=== PATIENT | male | born 1955 | race Caucasian/White ===

== ENCOUNTER 2016-10-22 21:41 | Emergency (ER) | payer MEDICARE ==
[2016-10-22] MEDS ORDERED: HYDROmorphone 1 MG/ML 1 ML SYRINGE IVP STA (22:45)
[2016-10-22] MEDS ORDERED: ONDANSETRON 4 MG/2 ML VIAL IVP STA (22:45)
[2016-10-22] MEDS ORDERED: RX INFO: IV CONTRAST WAS GIVEN 1 EACH MISC MISCELLANE PRN (22:45)
--- NOTE | 2016-10-22 22:50 | ED ---
Abdominal Pain HPI - General Chief Complaint: Abdominal Pain Stated Complaint: hernia Time Seen by Provider: 10/22/16 22:17 Source: patient Mode of arrival: ambulatory Limitations: no limitations - History of Present Illness Initial Comments: This patient is a 61-year-old man who presents to be evaluated for abdominal pain. Patient states that this is been coming on since he had lifted a sliding door to take off of the tract. He states that he feels that he hurt his abdomen where he has a hernia at the umbilicus. He complains of moderate to severe aching pain that is constant. He also has been having a number of episodes of dry heaves and he has vomited twice. He has felt that he has had a have a bowel movement and he has tried to go 4 times but not having much success. MD Complaint: abdominal pain -: hour(s) Location: periumbilical Radiation: none Migration to: no migration Severity: severe Quality: aching Consistency: constant Improves With: nothing Worsens With: nothing Associated Symptoms: nausea, vomiting, constipation - Related Data Previous Rx's Medication Instructions Recorded Hydrocodone/Acetaminophen [[place] 1 each PO Q6HR PRN #20 tab 10/23/16 5-325] Ondansetron Odt [Zofran ODT] 4 mg PO Q8HR PRN #10 tab 10/23/16 Tamsulosin [Flomax] 0.4 mg PO DAILY #14 cap 10/23/16 Allergies Allergy/AdvReac Type Severity Reaction Status Date / Time nickel Allergy Unknown Verified 10/22/16 22:15 Review of Systems ROS Statement: Those systems with pertinent positive or pertinent negative responses have been documented in the HPI. ROS Other: All systems not noted in ROS Statement are negative. Constitutional: Denies: fever, chills Respiratory: Denies: cough, dyspnea Cardiovascular: Denies: chest pain, palpitations Gastrointestinal: Reports: as per HPI, abdominal pain, nausea, vomiting, constipation. Denies: diarrhea, melena, hematochezia Genitourinary: Denies: dysuria, hematuria Musculoskeletal: Denies: back pain Skin: Denies: rash Neurological: Denies: headache, weakness, numbness Past Medical History Past Medical History: Diabetes Mellitus Additional Past Medical History / Comment(s): CHF, glaucoma History of Any Multi-Drug Resistant Organisms: None Reported Past Surgical History: No Surgical Hx Reported Smoking Status: Current every day smoker Past Alcohol Use History: None Reported Past Drug Use History: Marijuana General Exam Limitations: no limitations General appearance: alert, in distress (Due to abdominal pain), obese Head exam: Present: atraumatic, normocephalic Eye exam: Present: normal appearance. Absent: scleral icterus, conjunctival injection ENT exam: Present: mucous membranes dry Neck exam: Present: normal inspection Respiratory exam: Present: normal lung sounds bilaterally. Absent: respiratory distress, wheezes, rales, rhonchi, stridor Cardiovascular Exam: Present: regular rate, normal rhythm, normal heart sounds. Absent: systolic murmur, diastolic murmur, rubs, gallop GI/Abdominal exam: Present: soft, tenderness, hernia (Patient has an umbilical hernia which did have some mild tenderness. I was able to reduce this with mild pressure.). Absent: distended, guarding, rebound, rigid, organomegaly, mass Extremities exam: Present: normal inspection, normal capillary refill. Absent: pedal edema, calf tenderness Back exam: Present: normal inspection. Absent: CVA tenderness (R), CVA tenderness (L) Neurological exam: Present: alert Skin exam: Present: warm, dry, intact, normal color. Absent: rash Course Vital Signs 10/22/16 10/23/16 10/23/16 22:12 00:59 01:52 Temperature 97.9 F 99.0 F 98.9 F Pulse Rate 77 83 79 Respiratory 18 16 18 Rate Blood Pressure 189/86 160/74 159/75 O2 Sat by Pulse 99 96 97 Oximetry 10/23/16 03:25 Temperature 98.4 F Pulse Rate 83 Respiratory 16 Rate Blood Pressure 176/83 O2 Sat by Pulse 95 Oximetry Medical Decision Making - Lab Data Result diagrams: 10/22/16 23:00 10/22/16 23:00 Lab Results 10/22/16 10/22/16 10/22/16 Range/Units 23:00 23:00 23:00 WBC 12.5 H (3.8-10.6) k/uL RBC 5.05 (4.30-5.90) m/uL Hgb 16.9 (13.0-17.5) gm/dL Hct 47.4 (39.0-53.0) % MCV 93.9 (80.0-100.0) fL MCH 33.5 (25.0-35.0) pg MCHC 35.6 (31.0-37.0) g/dL RDW 13.4 (11.5-15.5) % Plt Count 192 (150-450) k/uL Neutrophils % 86 % Lymphocytes % 8 % Monocytes % 4 % Eosinophils % 1 % Basophils % 1 % Neutrophils # 10.7 H (1.3-7.7) k/uL Lymphocytes # 1.0 (1.0-4.8) k/uL Monocytes # 0.6 (0-1.0) k/uL Eosinophils # 0.1 (0-0.7) k/uL Basophils # 0.1 (0-0.2) k/uL Sodium 142 (137-145) mmol/L Potassium 4.9 (3.5-5.1) mmol/L Chloride 104 (98-107) mmol/L Carbon Dioxide 22 (22-30) mmol/L Anion Gap 16 mmol/L BUN 19 (9-20) mg/dL Creatinine 1.10 (0.66-1.25) mg/dL Est GFR (MDRD) Af Amer >60 (>60 ml/min/1.73 sqM) Est GFR (MDRD) Non-Af >60 (>60 ml/min/1.73 sqM) Glucose 222 H (74-99) mg/dL Plasma Lactic Acid [place] 2.6 H* (0.7-2.0) mmol/L Calcium 10.0 (8.4-10.2) mg/dL Total Bilirubin 1.0 (0.2-1.3) mg/dL AST 18 (17-59) U/L ALT 33 (21-72) U/L Alkaline Phosphatase 69 (38-126) U/L Total Protein 7.0 (6.3-8.2) g/dL Albumin 4.7 (3.5-5.0) g/dL Amylase 53 (30-110) U/L Lipase 326 H (23-300) U/L Urine Color Urine Appearance (Clear) Urine pH (5.0-8.0) Ur Specific [place] (1.001-1.035) Urine Protein (Negative) Urine Glucose (UA) (Negative) Urine Ketones (Negative) Urine Blood (Negative) Urine Nitrite (Negative) Urine Bilirubin (Negative) Urine Urobilinogen (<2.0) mg/dL Ur Leukocyte Esterase (Negative) Urine RBC (0-5) /hpf Urine WBC (0-5) /hpf Acetone, Qual (Negative) 10/22/16 10/22/16 10/23/16 Range/Units 23:00 23:00 02:39 WBC (3.8-10.6) k/uL RBC (4.30-5.90) m/uL Hgb (13.0-17.5) gm/dL Hct (39.0-53.0) % MCV (80.0-100.0) fL MCH (25.0-35.0) pg MCHC (31.0-37.0) g/dL RDW (11.5-15.5) % Plt Count (150-450) k/uL Neutrophils % % Lymphocytes % % Monocytes % % Eosinophils % % Basophils % % Neutrophils # (1.3-7.7) k/uL Lymphocytes # (1.0-4.8) k/uL Monocytes # (0-1.0) k/uL Eosinophils # (0-0.7) k/uL Basophils # (0-0.2) k/uL Sodium (137-145) mmol/L Potassium (3.5-5.1) mmol/L Chloride (98-107) mmol/L Carbon Dioxide (22-30) mmol/L Anion Gap mmol/L BUN (9-20) mg/dL Creatinine (0.66-1.25) mg/dL Est GFR (MDRD) Af Amer (>60 ml/min/1.73 sqM) Est GFR (MDRD) Non-Af (>60 ml/min/1.73 sqM) Glucose (74-99) mg/dL Plasma Lactic Acid [place] 2.1 H (0.7-2.0) mmol/L Calcium (8.4-10.2) mg/dL Total Bilirubin (0.2-1.3) mg/dL AST (17-59) U/L ALT (21-72) U/L Alkaline Phosphatase (38-126) U/L Total Protein (6.3-8.2) g/dL Albumin (3.5-5.0) g/dL Amylase (30-110) U/L Lipase (23-300) U/L Urine Color Yellow Urine Appearance Clear (Clear) Urine pH 6.0 (5.0-8.0) Ur Specific [place] 1.019 (1.001-1.035) Urine Protein 2+ H (Negative) Urine Glucose (UA) 1+ H (Negative) Urine Ketones 2+ H (Negative) Urine Blood Small H (Negative) Urine Nitrite Negative (Negative) Urine Bilirubin Negative (Negative) Urine Urobilinogen <2.0 (<2.0) mg/dL Ur Leukocyte Esterase Negative (Negative) Urine RBC 31 H (0-5) /hpf Urine WBC 1 (0-5) /hpf Acetone, Qual Positive (Negative) Disposition Clinical Impression: Calculus of kidney, Abdominal pain Disposition: HOME SELF-CARE Condition: Good Instructions: Abdominal Pain (ED), Kidney Stones (ED) Prescriptions: Hydrocodone/Acetaminophen [[place] 5-325] 1 each PO Q6HR PRN #20 tab PRN Reason: Pain Ondansetron Odt [Zofran ODT] 4 mg PO Q8HR PRN #10 tab PRN Reason: Nausea Tamsulosin [Flomax] 0.4 mg PO DAILY #14 cap Referrals: Gregor Lynch MD [Primary Care Provider] - 1-2 days
[2016-10-22 23:47] LABS: Basophils # (A) 0.1 k/uL (0-0.2); Basophils % (A) 1 %; CH 33.6; Eosinophils # (A) 0.1 k/uL (0-0.7); Eosinophils % (A) 1 %; HCT 47.4 % (39.0-53.0); HGB 16.9 gm/dL (13.0-17.5); Luc # (Auto) 0.14; Luc % (Auto) 1; Lymphocytes % (A) 8 %; MCH 33.5 pg (25.0-35.0); MCHC 35.6 g/dL (31.0-37.0); MCV 93.9 fL (80.0-100.0); Mean Platelet Volume 7.4; Monocytes # (A) 0.6 k/uL (0-1.0); Monocytes % (A) 4 %; Neutrophils # (A) 10.7 k/uL (1.3-7.7); Neutrophils % (A) 86 %; RBC 5.05 m/uL (4.30-5.90); RDW 13.4 % (11.5-15.5); WBC 12.5 k/uL (3.8-10.6); WBC (Perox) 11.85
[2016-10-22 23:49] LABS: Appearance,Urine Clear (Clear); Bilirubin,Urine Negative (Negative); Glucose,Urine (UA) 1+ (Negative); Leukocyte Esterase,Urine Negative (Negative); Nitrite,Urine Negative (Negative); Particle Count 853; Protein,Urine 2+ (Negative); RBC,Urine 31 /hpf (0-5); Specific Gravity,Urine 1.019 (1.001-1.035); UA Billing (MACRO vs. MICRO) MICRO; Urobilinogen,Urine <2.0 mg/dL (<2.0); WBC,Urine 1 /hpf (0-5)
[2016-10-23 00:01] LABS: ALT 33 U/L (21-72); AST 18 U/L (17-59); Alkaline Phosphatase 69 U/L (38-126); Amylase 53 U/L (30-110); Anion Gap 16 mmol/L; Blood Urea Nitrogen 19 mg/dL (9-20); Carbon Dioxide 22 mmol/L (22-30); Chloride 104 mmol/L (98-107); Glucose 222 mg/dL (74-99); Non-African American GFR(MDRD) >60 (>60 ml/min/1.73 sqM); Potassium 4.9 mmol/L (3.5-5.1); Sodium 142 mmol/L (137-145)
[2016-10-23 00:07] LABS: Ketones,Urine 2+ (Negative)
[2016-10-23] MEDS ORDERED: ONDANSETRON 4 MG/2 ML VIAL IVP STA (00:55)
[2016-10-23] MEDS ORDERED: HYDROmorphone 1 MG/ML 1 ML SYRINGE IVP STA (00:55)
[2016-10-23] MEDS ORDERED: SODIUM CHLORIDE 0.9% 1,000 ML IV ONE ×2 (00:55→02:18)
--- NOTE | 2016-10-23 01:49 | CT ---
CT abdomen and pelvis with contrast INDICATION: abdominal pain TECHNIQUE: Multiple, contiguous axial cuts of the abdomen and pelvis are obtained from the lung bases to the ischial tuberosities following the administration of IV contrast. Sagittal and coronal reformatted images are available. Radiation Dose: CTDIvol: 19.4 mGy DLP: 1021.1 mGy-cm COMPARISON: None FINDINGS: The lung bases are clear. The liver appears mildly low attenuation, may be seen with hepatic steatosis. Liver measures 22 cm in craniocaudal dimension. There is a gallstone at the gallbladder neck without CT evidence for cholecystitis. No evidence for intrahepatic or extra hepatic biliary ductal dilatation. The spleen is unremarkable. There is subtle loss of the normal lobulations of the pancreatic tail. The adrenal gland are unremarkable. The right kidney is unremarkable. There is haziness with perinephric stranding around the left kidney. There is mild to moderate left hydronephrosis and hydro ureter within a 5 mm stone at the expected location of the left ureteral insertion on the bladder. There is mild heterogeneous attenuation of the left kidney. Low attenuation foci in the left kidney may represent renal cysts, however continued attention on followup is recommended. No contrast is identified within the left collecting system on the delayed views. Fat containing umbilical hernia. No evidence for an bowel obstruction. The appendix is unremarkable. Colonic diverticulosis, worse in the sigmoid colon. No CT evidence for diverticulitis. Extensive atherosclerotic calcifications of the abdominal aorta. Degenerative changes of the lumbar spine. Mild endplate compression deformity of the T12 vertebral body. Osseous mineralization appears decreased. IMPRESSION: 1. There is a 5 mm obstructive ureteral stone at the left ureteropelvic junction with associated mild to moderate hydroureteronephrosis. There is left perinephric stranding with heterogeneous attenuation of the left kidney which maybe due to obstructive nephropathy, however pyelonephritis is not entirely excluded. Please correlate with urinalysis. 2. Subtle loss of the normal lobulations of the pancreatic tail which may be due to anatomic variant, however continued attention on followup is recommended. Comparisons with prior examinations may be helpful. 3. Hepatomegaly with suggestion of hepatic steatosis. 4. Cholelithiasis without CT evidence for cholecystitis. 5. Diverticulosis without CT evidence for diverticulitis 6. Mild endplate compression deformity of the T12 vertebral body. Osseous mineralization appears decreased.
[2016-10-23] MEDS ORDERED: TAMSULOSIN 0.4 MG CAP.ER.24H PO STA (02:25)
[2016-10-23 03:28] VITALS: BP 176/83; PULSE 83; RESP 16; TEMP 98.4
== END 2016-10-23 03:52 | disposition home or self-care (01) ==
LOC: EC 21:41
DX: N20.0 Calculus of kidney (principal); F17.200 Nicotine dependence, unspecified, uncomplicated; Z91.048 Other nonmedicinal substance allergy status
CPT/HCPCS: 99284; 96374; 96375; 96376 ×2; 96361; 36415 ×2; 80053; 82150; 82009; 83605 ×2; 83690; 85025; 81001; 74177; J2405 ×2; J1170 ×2; Q9967

== ENCOUNTER 2017-10-04 17:35 | Inpatient (IN) | payer MEDICARE ==
[2017-10-04] MEDS ORDERED: SODIUM CHLORIDE 0.9% 1,000 ML IV STA (18:55)
--- NOTE | 2017-10-04 19:00 | ED ---
Recheck HPI - General Chief Complaint: Recheck/Abnormal Lab/Rx Stated Complaint: abn EKG Time Seen by Provider: 10/04/17 17:50 Source: patient, RN notes reviewed, old records reviewed Mode of arrival: ambulatory Limitations: no limitations - History of Present Illness Initial Comments: This patient's a 62-year-old male sent in by PCP for chief complaint of abnormal EKG. He has been having increased shortness of breath over the past few days. He reports that at his PCPs office he was given a breathing treatment and IM Solu-Medrol and Rocephin. Chest x-ray there showed bronchitis in any small pneumonia. Patient states that he quit smoking cigarettes 2 months ago, and stop smoking marijuana 2 days ago. He states that he was given refills of his inhaler. He was sent here for further evaluation due to the EKG and around his. At this time he denies any chest pain. He denies any fever or chills. No nausea or vomiting or abdominal pain. No diaphoresis. No significant cardiac history. He does have a family history of heart disease. He's never had a stress test. - Related Data Home Medications Medication Instructions Recorded Confirmed Atorvastatin [Lipitor] 20 mg PO HS 10/04/17 10/04/17 Cholecalciferol [Vitamin D3] 5,000 unit PO DAILY 10/04/17 10/04/17 Lisinopril [Zestril] 10 mg PO DAILY 10/04/17 10/04/17 Magnesium Oxide [Mag-Ox] 250 mg PO DAILY 10/04/17 10/04/17 Multivitamins, Thera [Multivitamin 1 tab PO DAILY 10/04/17 10/04/17 (formulary)] [place]-3 Fatty Acids/Fish Oil [Fish 1 cap PO DAILY 10/04/17 10/04/17 Oil 1,000 mg Softgel] amLODIPine BESYLATE [Norvasc] 10 mg PO DAILY 10/04/17 10/04/17 glipiZIDE [Glucotrol] 10 mg PO BID 10/04/17 10/04/17 metFORMIN HCL 1,000 mg PO BID 10/04/17 10/04/17 Allergies Allergy/AdvReac Type Severity Reaction Status Date / Time nickel Allergy Unknown Verified 10/04/17 19:08 Review of Systems ROS Statement: Those systems with pertinent positive or pertinent negative responses have been documented in the HPI. ROS Other: All systems not noted in ROS Statement are negative. Past Medical History Past Medical History: Diabetes Mellitus Additional Past Medical History / Comment(s): CHF, glaucoma History of Any Multi-Drug Resistant Organisms: None Reported Past Surgical History: No Surgical Hx Reported Past Psychological History: No Psychological Hx Reported Smoking Status: Current every day smoker Past Alcohol Use History: None Reported Past Drug Use History: Marijuana General Exam - General Exam Comments Initial Comments: Patient's a 62-year-old male. Alert and oriented. No significant distress.Paper Patient is hypertensive at 216/102. Pulse ox 98%. Respiratory rate 18. Pulse 84. Temp 98.3. Limitations: no limitations General appearance: alert, in no apparent distress Head exam: Present: atraumatic, normocephalic, normal inspection Eye exam: Present: normal appearance, PERRL, EOMI. Absent: scleral icterus, conjunctival injection, periorbital swelling ENT exam: Present: normal exam, mucous membranes moist Neck exam: Present: normal inspection. Absent: tenderness, meningismus, lymphadenopathy Respiratory exam: Present: normal lung sounds bilaterally. Absent: respiratory distress, wheezes, rales, rhonchi, stridor Cardiovascular Exam: Present: regular rate, normal rhythm, normal heart sounds. Absent: systolic murmur, diastolic murmur, rubs, gallop, clicks GI/Abdominal exam: Present: soft, normal bowel sounds. Absent: distended, tenderness, guarding, rebound, rigid Extremities exam: Present: normal inspection, full ROM, normal capillary refill. Absent: tenderness, pedal edema, joint swelling, calf tenderness Back exam: Present: normal inspection Neurological exam: Present: alert, oriented X3, CN II-XII intact Psychiatric exam: Present: normal affect, normal mood Course Vital Signs 10/04/17 10/04/17 10/04/17 17:38 19:05 19:26 Temperature 98.3 F Pulse Rate 84 79 69 Respiratory 18 16 15 Rate Blood Pressure 216/102 160/79 130/67 O2 Sat by Pulse 98 97 96 Oximetry 10/04/17 10/04/17 20:00 21:00 Temperature Pulse Rate 76 81 Respiratory 16 20 Rate Blood Pressure 142/69 163/78 O2 Sat by Pulse 95 97 Oximetry Medical Decision Making - Medical Decision Making 5-year-old male presents emergency Department chief complaint shortness breath over the past 2 days. Does have an abnormal EKG from PCP and sent here for further evaluation. He does have some T-wave inversions in the inferior leads poor R-wave progression. Patient has a family history of heart disease. He has multiple risk factors including diabetes and smoking. At this time. Patient denies any significant chest pain. Troponin is negative. Ruddy I discussed that I elected with the Patient for cardiac consult repeating the EKGs and troponins. Patient does agree with this. We'll consult to cardiology. Again he was recently diagnosed with bronchitis by PCP. Started on Solu-Medrol already today and given IV Rocephin. We'll continue some breathing treatments for the Patient. - Lab Data Result diagrams: 10/04/17 19:07 10/04/17 19:07 Lab Results 10/04/17 10/04/17 10/04/17 Range/Units 19:07 19:07 19:07 WBC 6.4 (3.8-10.6) k/uL RBC 4.82 (4.30-5.90) m/uL Hgb 15.6 (13.0-17.5) gm/dL Hct 44.1 (39.0-53.0) % MCV 91.6 (80.0-100.0) fL MCH 32.4 (25.0-35.0) pg MCHC 35.4 (31.0-37.0) g/dL RDW 13.3 (11.5-15.5) % Plt Count 192 (150-450) k/uL Neutrophils % 66 % Lymphocytes % 23 % Monocytes % 7 % Eosinophils % 2 % Basophils % 1 % Neutrophils # 4.2 (1.3-7.7) k/uL Lymphocytes # 1.5 (1.0-4.8) k/uL Monocytes # 0.4 (0-1.0) k/uL Eosinophils # 0.1 (0-0.7) k/uL Basophils # 0.0 (0-0.2) k/uL PT (9.0-12.0) sec INR (<1.2) APTT (22.0-30.0) sec D-Dimer (<0.60) mg/L FEU Sodium 139 (137-145) mmol/L Potassium 4.4 (3.5-5.1) mmol/L Chloride 100 (98-107) mmol/L Carbon Dioxide 22 (22-30) mmol/L Anion Gap 17 mmol/L BUN 15 (9-20) mg/dL Creatinine 0.76 (0.66-1.25) mg/dL Est GFR (CKD-EPI)AfAm >90 (>60 ml/min/1.73 sqM) Est GFR (CKD-EPI)NonAf >90 (>60 ml/min/1.73 sqM) Glucose 181 H (74-99) mg/dL Calcium 9.6 (8.4-10.2) mg/dL Magnesium 1.7 (1.6-2.3) mg/dL Total Bilirubin 1.0 (0.2-1.3) mg/dL AST 38 (17-59) U/L ALT 40 (21-72) U/L Alkaline Phosphatase 44 (38-126) U/L Total Creatine Kinase 167 (55-170) U/L CK-MB (CK-2) 3.5 H* (0.0-2.4) ng/mL CK-MB (CK-2) Rel Index 2.1 Troponin I <0.012 (0.000-0.034) ng/mL NT-Pro-B Natriuret Pep pg/mL Total Protein 7.2 (6.3-8.2) g/dL Albumin 4.8 (3.5-5.0) g/dL 10/04/17 10/04/17 10/04/17 Range/Units 19:07 19:07 19:07 WBC (3.8-10.6) k/uL RBC (4.30-5.90) m/uL Hgb (13.0-17.5) gm/dL Hct (39.0-53.0) % MCV (80.0-100.0) fL MCH (25.0-35.0) pg MCHC (31.0-37.0) g/dL RDW (11.5-15.5) % Plt Count (150-450) k/uL Neutrophils % % Lymphocytes % % Monocytes % % Eosinophils % % Basophils % % Neutrophils # (1.3-7.7) k/uL Lymphocytes # (1.0-4.8) k/uL Monocytes # (0-1.0) k/uL Eosinophils # (0-0.7) k/uL Basophils # (0-0.2) k/uL PT 10.2 (9.0-12.0) sec INR 1.0 (<1.2) APTT 20.5 L (22.0-30.0) sec D-Dimer 0.39 (<0.60) mg/L FEU Sodium (137-145) mmol/L Potassium (3.5-5.1) mmol/L Chloride (98-107) mmol/L Carbon Dioxide (22-30) mmol/L Anion Gap mmol/L BUN (9-20) mg/dL Creatinine (0.66-1.25) mg/dL Est GFR (CKD-EPI)AfAm (>60 ml/min/1.73 sqM) Est GFR (CKD-EPI)NonAf (>60 ml/min/1.73 sqM) Glucose (74-99) mg/dL Calcium (8.4-10.2) mg/dL Magnesium (1.6-2.3) mg/dL Total Bilirubin (0.2-1.3) mg/dL AST (17-59) U/L ALT (21-72) U/L Alkaline Phosphatase (38-126) U/L Total Creatine Kinase (55-170) U/L CK-MB (CK-2) (0.0-2.4) ng/mL CK-MB (CK-2) Rel Index Troponin I (0.000-0.034) ng/mL NT-Pro-B Natriuret Pep 104 pg/mL Total Protein (6.3-8.2) g/dL Albumin (3.5-5.0) g/dL 10/04/17 19:01 EKG performed at 1837 shows sinus rhythm first degree AV block. Pulmonary disease pattern. Left anterior fascicular block. Septal infarct. Ventricular rate 70 beats minute period. Vitals 234. Care is duration 118. QTc is 380/ 420 once milliseconds. - Radiology Data Radiology results: report reviewed X-ray is normal. No changes. Disposition Clinical Impression: EKG abnormality, SOB (shortness of breath), Bronchitis Disposition: ADMITTED IP TO THIS [facility] Condition: Stable Is patient prescribed a controlled substance at d/c from ED?: No When asked, does pt state using other controlled substances?: No If prescribed controlled substance>3 days was MAPS reviewed?: No If opioid is for acute pain is fill amount 7 days or less?: No If Rx opioid, was Start Talking consent form obtained?: No Time of Disposition: 21:26
[2017-10-04] MEDS ORDERED: LABETALOL 5 MG/ML VIAL MDV IVP STA (19:01)
[2017-10-04 19:18] LABS: HCT 44.1 % (39.0-53.0); HGB 15.6 gm/dL (13.0-17.5); MCH 32.4 pg (25.0-35.0); MCHC 35.4 g/dL (31.0-37.0); MCV 91.6 fL (80.0-100.0); Mean Platelet Volume 7.3; Neutrophils % (A) 66 %; Platelet Count 192 k/uL (150-450); RBC 4.82 m/uL (4.30-5.90); RDW 13.3 % (11.5-15.5); WBC 6.4 k/uL (3.8-10.6)
[2017-10-04 19:19] LABS: Basophils % (A) 1 %; Eosinophils # (A) 0.1 k/uL (0-0.7); Eosinophils % (A) 2 %; Lymphocytes # (A) 1.5 k/uL (1.0-4.8); Lymphocytes % (A) 23 %; Monocytes # (A) 0.4 k/uL (0-1.0); Monocytes % (A) 7 %; Neutrophils # (A) 4.2 k/uL (1.3-7.7)
[2017-10-04 19:30] LABS: ALT 40 U/L (21-72); AST 38 U/L (17-59); Albumin 4.8 g/dL (3.5-5.0); Alkaline Phosphatase 44 U/L (38-126); Anion Gap 17 mmol/L; Blood Urea Nitrogen 15 mg/dL (9-20); Calcium 9.6 mg/dL (8.4-10.2); Carbon Dioxide 22 mmol/L (22-30); Chloride 100 mmol/L (98-107); Glucose 181 mg/dL (74-99); Magnesium 1.7 mg/dL (1.6-2.3); Potassium 4.4 mmol/L (3.5-5.1); Sodium 139 mmol/L (137-145); Total Protein 7.2 g/dL (6.3-8.2)
[2017-10-04 19:39] LABS: Creatine Kinase 167 U/L (55-170)
[2017-10-04 19:47] LABS: Partial Thromboplastin Time 20.5 sec (22.0-30.0); Prothrombin Time 10.2 sec (9.0-12.0)
--- NOTE | 2017-10-04 19:51 | XR ---
EXAMINATION TYPE: XR chest 2V DATE OF EXAM: 10/04/2017 COMPARISON: 12/20/2012 HISTORY: Abnormal cardiogram. Chest pain. TECHNIQUE: Frontal and lateral views of the chest are obtained. FINDINGS: Heart and mediastinum are normal. Lungs are clear. Diaphragm is normal. Bony thorax is int act. IMPRESSION: Normal chest. No change.
[2017-10-04 19:52] LABS: Troponin I <0.012 ng/mL (0.000-0.034)
[2017-10-04 19:56] LABS: Creatine Kinase MB 3.5 ng/mL (0.0-2.4)
[2017-10-04] MEDS ORDERED: NITROGLYCERIN SL TABS 0.4 MG TAB SUBLINGUAL PRN (21:26)
[2017-10-04 22:40] VITALS: BMI 33.1
[2017-10-05 01:00] LABS: Creatine Kinase 180 U/L (55-170)
[2017-10-05 01:13] LABS: Troponin I <0.012 ng/mL (0.000-0.034)
[2017-10-05 01:14] LABS: Creatine Kinase MB 3.8 ng/mL (0.0-2.4)
[2017-10-05 01:45] VITALS: TEMP 98.6
[2017-10-05 06:12] LABS: Glucose,Whole Blood 192 mg/dL (75-99)
[2017-10-05 07:57] LABS: Cholesterol 129 mg/dL (<200); HDL Cholesterol 26 mg/dL (40-60); Triglycerides 501 mg/dL (<150)
[2017-10-05 08:07] LABS: Creatine Kinase 179 U/L (55-170)
[2017-10-05 08:20] LABS: Troponin I <0.012 ng/mL (0.000-0.034)
[2017-10-05 08:22] LABS: Creatine Kinase MB 3.2 ng/mL (0.0-2.4)
[2017-10-05] MEDS: IPRATROPIUM-ALBUTEROL 3 ML NEB INHALATION SCH ×4 (08:40→19:56)
[2017-10-05] MEDS: glipiZIDE 10 MG TAB PO SCH ×2 (08:52→14:19)
[2017-10-05] MEDS: LISINOPRIL 10 MG TAB PO SCH ×2 (08:52→11:12)
[2017-10-05] MEDS: amLODIPine 10 MG TAB PO SCH ×2 (08:52→11:10)
[2017-10-05] MEDS: metFORMIN 500 MG TAB PO SCH ×2 (08:53→14:19)
[2017-10-05] MEDS ORDERED: ASPIRIN 325 MG TAB PO SCH (09:00)
[2017-10-05] MEDS ORDERED: NON-FORMULARY DRUG (Omega-3 Fatty Acids/Fish Oil [Fish Oil 1,000 Mg Softgel] 1 CAP) PO SCH (09:00)
--- NOTE | 2017-10-05 10:24 | P.CRDCN ---
History of Present Illness Consult date: 10/05/17 Requesting physician: Thomas Hameed Consult reason: shortness of breath Chief complaint: Shortness of breath History of present illness: This 62-year-old gentleman with known history of hypertension, hyperlipidemia, diabetes, 50 year smoking history, year marijuana use history, states that he quit smoking 2 days ago. Patient states that he quit smoking because quite suddenly it seemed as though he just could not breathe. Shortness of breath is been getting progressively worse over the past 2-3 days. Patient has been told in the past to have COPD. He also has a family history of premature coronary artery disease. According to the patient, he went to see his primary care doctor, was given a breathing treatment as well as some Solu- Medrol and Rocephin, outpatient chest x-ray revealed bronchitis and pneumonia. Chest x-ray performed on arrival here is normal. An EKG was performed in the office which was felt to be abnormal and for this reason patient was advised to come to the emergency room for further evaluation. EKG in the office showed a normal sinus rhythm with no acute changes. EKG on arrival here showed a normal sinus rhythm with first-degree AV block and left anterior fascicular block. No acute changes noted. Blood pressure on arrival to 16/102, heart rate in the 80s , 98% on room air. Temperature 98.3. White blood cell count 6.4, hemoglobin 15.6, platelet count 192. D-dimer is negative. Sodium 139, potassium 4.4, BUN 15, creatinine 0.7. Troponins negative 3. Cholesterol 129, LDL not calculated , triglycerides 501, and HDL 26. At the time of my examination this morning, patient is mildly short of breath, denies any chest discomfort. He states he has never had a prior cardiac workup with stress testing or cardiac catheterization. Past Medical History Past Medical History: Diabetes Mellitus Additional Past Medical History / Comment(s): CHF, glaucoma History of Any Multi-Drug Resistant Organisms: None Reported Past Surgical History: No Surgical Hx Reported Past Psychological History: No Psychological Hx Reported Smoking Status: Current every day smoker Past Alcohol Use History: None Reported Past Drug Use History: Marijuana Medications and Allergies Home Medications Medication Instructions Recorded Confirmed Type Atorvastatin [Lipitor] 20 mg PO HS 10/04/17 10/04/17 History Cholecalciferol [Vitamin D3] 5,000 unit PO DAILY 10/04/17 10/04/17 History Lisinopril [Zestril] 10 mg PO DAILY 10/04/17 10/04/17 History Magnesium Oxide [Mag-Ox] 250 mg PO DAILY 10/04/17 10/04/17 History Multivitamins, Thera [Multivitamin 1 tab PO DAILY 10/04/17 10/04/17 History (formulary)] [place]-3 Fatty Acids/Fish Oil [Fish 1 cap PO DAILY 10/04/17 10/04/17 History Oil 1,000 mg Softgel] amLODIPine BESYLATE [Norvasc] 10 mg PO DAILY 10/04/17 10/04/17 History glipiZIDE [Glucotrol] 10 mg PO BID 10/04/17 10/04/17 History metFORMIN HCL 1,000 mg PO BID 10/04/17 10/04/17 History Allergies Allergy/AdvReac Type Severity Reaction Status Date / Time nickel Allergy Unknown Verified 10/04/17 19:08 Physical Exam Vitals: Vital Signs Temp Pulse Pulse Resp BP BP Pulse Ox 10/05/17 08:51 76 10/05/17 08:44 76 95 10/05/17 08:00 70 18 126/88 100 10/05/17 04:00 98.6 F 92 16 136/76 95 10/05/17 00:00 98.6 F 83 16 149/84 95 10/04/17 21:00 81 20 163/78 97 10/04/17 20:00 76 16 142/69 95 10/04/17 19:26 69 15 130/67 96 10/04/17 19:05 79 16 160/79 97 10/04/17 17:38 98.3 F 84 18 216/102 98 Intake and Output 10/04/17 10/05/17 10/05/17 22:59 06:59 14:59 Other: # Voids 1 1 Weight 113.852 kg 113.5 kg PHYSICAL EXAMINATION: GENERAL: 62-year-old gentleman in no apparent distress at the time of my examination. HEENT: Head is atraumatic, normocephalic. Pupils equal, round. Sclera anicteric. Conjunctiva are clear. Mucous membranes of the mouth are moist. Neck is supple. There is no elevated jugular venous pressure.] bruit is heard. HEART EXAMINATION: Heart S1, S2 normal. No murmur or gallop heard. CHEST EXAMINATION: Lungs reveal decreased air exchange . No chest wall tenderness is noted on palpation or with deep breathing. ABDOMEN: Soft, obese, nontender. Bowel sounds are heard. No organomegaly noted. EXTREMITIES: 2+ peripheral pulses with no evidence of peripheral edema and no calf tenderness noted. NEUROLOGIC patient is awake, alert and oriented -3. . Results 10/04/17 19:07 10/04/17 19:07 Cardiac Enzymes 10/04/17 10/04/17 10/05/17 Range/Units 19:07 19:07 00:34 AST 38 (17-59) U/L CK-MB (CK-2) 3.5 H* 3.8 H* (0.0-2.4) ng/mL Troponin I <0.012 <0.012 (0.000-0.034) ng/mL 10/05/17 Range/Units 07:17 AST (17-59) U/L CK-MB (CK-2) 3.2 H* (0.0-2.4) ng/mL Troponin I <0.012 (0.000-0.034) ng/mL Coagulation 10/04/17 Range/Units 19:07 PT 10.2 (9.0-12.0) sec APTT 20.5 L (22.0-30.0) sec Lipids 10/05/17 Range/Units 07:17 Triglycerides 501 H (<150) mg/dL Cholesterol 129 (<200) mg/dL HDL Cholesterol 26 L (40-60) mg/dL CBC 10/04/17 Range/Units 19:07 WBC 6.4 (3.8-10.6) k/uL RBC 4.82 (4.30-5.90) m/uL Hgb 15.6 (13.0-17.5) gm/dL Hct 44.1 (39.0-53.0) % Plt Count 192 (150-450) k/uL Comprehensive Metabolic Panel 10/04/17 Range/Units 19:07 Sodium 139 (137-145) mmol/L Potassium 4.4 (3.5-5.1) mmol/L Chloride 100 (98-107) mmol/L Carbon Dioxide 22 (22-30) mmol/L BUN 15 (9-20) mg/dL Creatinine 0.76 (0.66-1.25) mg/dL Glucose 181 H (74-99) mg/dL Calcium 9.6 (8.4-10.2) mg/dL AST 38 (17-59) U/L ALT 40 (21-72) U/L Alkaline Phosphatase 44 (38-126) U/L Total Protein 7.2 (6.3-8.2) g/dL Albumin 4.8 (3.5-5.0) g/dL Current Medications Generic Name Dose Route Start Last Admin Trade Name Freq PRN Reason Stop Dose Admin Albuterol/Ipratropium 3 ml 10/05/17 08:00 10/05/17 08:40 Duoneb 0.5 Mg-3 Mg/3 Ml Soln INHALATION 3 ml RT-Q4H MARIMAR Administration Amlodipine Besylate 10 mg 10/05/17 09:00 10/05/17 08:52 Norvasc PO 10 mg DAILY MARIMAR Administration Aspirin 325 mg 10/05/17 09:00 10/05/17 08:52 Aspirin PO 325 mg DAILY MARIMAR Administration Atorvastatin Calcium 20 mg 10/05/17 21:00 Lipitor PO HS MARIMAR Cholecalciferol 5,000 unit 10/05/17 12:00 10/05/17 08:52 Vitamin D3 PO 5,000 unit DAILY@1200 MARIMAR Administration Glipizide 10 mg 10/05/17 09:00 Glucotrol PO BID [facility] Sodium Chloride 1,000 mls @ 100 mls/hr 10/05/17 04:15 Saline 0.9% IV .Q10H [facility] Lisinopril 10 mg 10/05/17 09:00 10/05/17 08:52 Zestril PO 10 mg DAILY [facility] Administration Magnesium Oxide 400 mg 10/05/17 12:00 10/05/17 08:52 Mag-Ox PO 400 mg DAILY@1200 MARIMAR Administration Metformin HCl 1,000 mg 10/05/17 09:00 Glucophage PO BID [facility] Multivitamins 1 each 10/05/17 12:00 10/05/17 08:52 Theragran PO 1 each DAILY@1200 [facility] Administration Nitroglycerin 0.4 mg 10/04/17 21:26 Nitrostat SUBLINGUAL Q5M PRN Chest Pain Intake and Output 10/04/17 10/05/17 10/05/17 22:59 06:59 14:59 Other: # Voids 1 1 Weight 113.852 kg 113.5 kg 10/04/17 19:07 10/04/17 19:07 EKG Interpretations (text) EKG shows normal sinus rhythm with first-degree AV block, nonspecific ST-T wave changes Assessment and Plan Plan: Assessment and plan #1 symptoms of fairly sudden onset of shortness of breath with progression of symptoms over the past 2-3 days. Chest x-ray did not show any acute cardiopulmonary changes. Apparently patient did have an outpatient chest x-ray which showed possible pneumonia. Patient was given a dose of antibiotics, breathing treatment, and steroids at his physician's office. No evidence of congestive heart failure. #2 accelerated hypertension #3 diabetes #4 hyperlipidemia #5 50year smoking history, patient states he quit 2 days ago #6 50 year marijuana use history #7Family history of premature coronary artery disease Plan We will obtain an echocardiogram with Doppler study. EKG here shows normal sinus rhythm with no acute changes. Optimize blood pressure control. Amber scan stress test today. Further recommendations to follow. DNP note has been reviewed, I agree with a documented findings and plan of care. Patient was seen and examined.
[2017-10-05] MEDS ORDERED: AMINOPHYLLINE 500 MG/20 ML VIAL IV PRN (10:58)
[2017-10-05] MEDS ORDERED: REGADENOSON 0.4 MG/5 ML SYRINGE IV ONE (10:58)
[2017-10-05 11:42] LABS: Glucose,Whole Blood 239 mg/dL (75-99)
--- NOTE | 2017-10-05 11:59 | ECHOF ---
Referral Reason:chest pain MEASUREMENTS -------- HEIGHT: 185.4 cm WEIGHT: 113.4 kg BP: 126/88 RVIDd: 3.5 cm (< 3.3) IVSd: 1.2 cm (0.6 - 1.1) LVIDd: 4.7 cm (3.9 - 5.3) LVPWd: 1.2 cm (0.6 - 1.1) IVSs: 1.6 cm LVIDs: 3.3 cm LVPWs: 1.5 cm LAESV Index (A-L): 19.68 ml/m Ao Diam: 4.2 cm (2.0 - 3.7) AV Cusp: 2.4 cm (1.5 - 2.6) LA Diam: 2.8 cm (2.7 - 3.8) MV E Wesly: 1.00 m/s MV DecT: 315 ms MV A Wesly: 0.96 m/s MV E/A Ratio: 1.04 FINDINGS -------- Sinus rhythm. This was a technically adequate study. The left ventricular size is normal. There is mild concentric left ventricular hypertrophy. Overa ll left ventricular systolic function is normal with, an EF between 55 - 60 %. The right ventricle is mildly enlarged. Normal LA size by volume 22+/-6 ml/m2. The right atrium is normal in size. Aortic valve is trileaflet and is mildly thickened. There is no evidence of aortic regurgitation. There is no evidence of aortic stenosis. The mitral valve leaflets are mildly thickened. There is trace to mild mitral regurgitation. Trace tricuspid regurgitation present. Right ventricular systolic pressure is normal at < 35 mmHg. There is no evidence of pulmonary hypertension. The pulmonic valve was not well visualized. The aortic root size is normal. IVC Not well visulized. There is no pericardial effusion. CONCLUSIONS -------- 1. Sinus rhythm. 2. This was a technically adequate study. 3. The left ventricular size is normal. 4. There is mild concentric left ventricular hypertrophy. 5. Overall left ventricular systolic function is normal with, an EF between 55 - 60 %. 6. The right ventricle is mildly enlarged. 7. Normal LA size by volume 22+/-6 ml/m2. 8. Aortic valve is trileaflet and is mildly thickened. 9. The mitral valve leaflets are mildly thickened. 10. There is trace to mild mitral regurgitation. 11. Trace tricuspid regurgitation present. 12. Right ventricular systolic pressure is normal at < 35 mmHg. 13. There is no evidence of pulmonary hypertension. 14. The pulmonic valve was not well visualized. 15. The aortic root size is normal. 16. IVC Not well visulized. 17. There is no pericardial effusion. [employer] ARC: Jeramy Ramirez RDCS
[2017-10-05] MEDS ORDERED: MAGNESIUM OXIDE 400 MG TAB PO SCH (12:00)
[2017-10-05] MEDS ORDERED: CHOLECALCIFEROL 1,000 UNIT TAB PO SCH (12:00)
[2017-10-05] MEDS ORDERED: MULTIVITAMINS, THERA 1 EACH TAB PO SCH (12:00)
--- NOTE | 2017-10-05 13:45 | P.STRESS ---
- Stress Test Note Stress Test Results/Findings: Exam Performed: NM stress lexiscan cardiolite Exam Date: 10/05/17 Reason for Exam: ABN EKG Height: 6 ft 1 in Weight: 113.5 kg Protocol: jaguar scan Stage: na Duration of Exercise: na Resting Heart Rate: 66 Resting Blood Pressure: 136/74 Maximum Achieved Heart Rate: 87 Maximum Achieved Blood Pressure: 148/63 85% PMHR: na 100% PMHR: na METS: na Technologist Comment: Stress Test Results/Findings: This is a 62-year-old male with history of hypertension, diabetes and family history of ischemic heart disease and smoking history, being evaluated for cardiac status. Stress data Baseline EKG showed sinus rhythm with normal CT and QRS duration. Blood pressure at rest is 136/70. Pulse rate of 66. A standard dose of Lexiscan was infused. EKGs taken during and after infusion did not reveal any significant change from the baseline. Final impression #1 negative Lexiscan stress test #2. Report of an echo images to begin by the radiologist.
[2017-10-05] MEDS: SODIUM CHLORIDE 0.9% 1,000 ML IV SCH (14:20)
--- NOTE | 2017-10-05 15:22 | NM ---
EXAMINATION TYPE: NM stress lexiscan cardiolite DATE OF EXAM: 10/05/2017 COMPARISON: NONE HISTORY: Chest pain TECHNIQUE: After the intravenous administration of 10.56 mCi Tc 99m Sestamibi - Cardiolite resting S PECT images acquired 45 minutes post injection. The patient received 0.4mg Lexiscan, 27 mCi Tc 99m Sestamibi - Stress images obtained 110 minutes pos t injection FINDINGS: Review of stress and rest SPECT images demonstrates decreased radio pharmaceutical uptake along the i nferior wall left ventricle towards the base of the heart at stress and rest images. There is some de creased uptake along the anterolateral wall on stress as compared to rest images adjacent to the area of decreased uptake. Gated analysis shows normal wall motion with an estimated left ventricular ejec tion fraction of 54 %. IMPRESSION: Findings suggest possible prior infarct as well as justine-infarct pharmacologically induced left ventri cular myocardial ischemia
[2017-10-05] MEDS ORDERED: MAGNESIUM HYDROXIDE 2,400 MG/10 ML CUP PO PRN (16:48)
[2017-10-05] MEDS ORDERED: MELATONIN 3 MG TABLET PO PRN (16:48)
[2017-10-05] MEDS ORDERED: ACETAMINOPHEN TAB 325 MG TAB PO PRN (16:48)
[2017-10-05] MEDS ORDERED: ALPRAZolam 0.25 MG TAB PO PRN (16:48)
[2017-10-05] MEDS ORDERED: LACTULOSE 20 GM/30 ML CUP PO PRN (16:48)
[2017-10-05] MEDS ORDERED: CALCIUM CARBONATE 500 MG CHEWABLE PO PRN (16:48)
[2017-10-05] MEDS ORDERED: ONDANSETRON 4 MG/2 ML VIAL IVP PRN (16:48)
[2017-10-05 16:52] LABS: Glucose,Whole Blood 256 mg/dL (75-99)
[2017-10-05 17:05] VITALS: BP 130/78; PULSE 84; RESP 17
[2017-10-05] MEDS ORDERED: INSULIN ASPART 100 UNIT/ML 1 ML 10 ML VIAL SQ SCH (17:30)
--- NOTE | 2017-10-05 18:19 | HP ---
HISTORY AND PHYSICAL DATE OF ADMISSION: 10/04/2017 DATE OF SERVICE: 10/05/2017. PRESENTING COMPLAINT: Some shortness of breath. HISTORY OF PRESENTING COMPLAINT: This is a pleasant 62-year-old patient of Dr. Lynch. Chronic stable medical conditions include diabetes, hypertension, hyperlipidemia, peripheral neuropathy. Patient does get occasional edema of the lower extremities. Patient has had some shortness of breath and has smoked until about 2 months ago. Also he has been doing some marijuana. Patient presented with his friend. Patient went to see Dr. Lynch in his office. EKG was found to have some abnormality. He was sent in for the same. Patient has denied any chest pain, though he does get short of breath with some exertion. Currently no orthopnea or PND and, like stated, sometimes gets edema of the lower extremity. Denies any obvious chest pressure. Patient does complain of a charley horse in the lower extremity and has peripheral neuropathy. REVIEW OF SYSTEMS: CONSTITUTIONAL: Tired. HEENT: None. RESPIRATORY: As above. CARDIOVASCULAR: As above. GASTROINTESTINAL: None. GENITOURINARY: Patient's urine stream has started to slow down. DERMATOLOGICAL: None. HEMATOLOGICAL: None. LYMPHATICS: None. PSYCHIATRY: None. NEUROLOGICAL: Numbness and tingling in the feet. MUSCULOSKELETAL: Arthritic pain is several joints. PAST MEDICAL HISTORY: 1. Diabetes. 2. Hypertension. 3. Hyperlipidemia. 4. Peripheral neuropathy. 5. Osteoarthritis. PAST SURGICAL HISTORY: None. SOCIAL HISTORY: Patient smoked a pack and a half a day for close to 50 years; stopped about 2 months ago. Does some marijuana. 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 FAMILY HISTORY: Reviewed; noncontributory to presentation. HOME MEDICATIONS: 1. Norvasc 10 mg p.o. daily. 2. Zestril 10 mg p.o. daily. 3. Lipitor 20 mg at bedtime. 4. Multivitamin 1 tablet p.o. daily. 5. Magnesium oxide 250 mg p.o. daily. 6. Metformin 1000 mg p.o. b.i.d. 7. Glucotrol 10 mg p.o. daily. 8. Fish oil 1 capsule p.o. daily. 9. Vitamin D3 5000 units p.o. daily. ALLERGIES: NICKEL. PHYSICAL EXAMINATION: VITAL SIGNS: Temperature 98.6, pulse 92, respiration 16, blood pressure 136/76, pulse ox 95% on room air. GENERAL APPEARANCE: Well built; BMI 33. Sitting up at the edge of bed, comfortable. EYES: Pupils equal. Conjunctivae normal. HEENT: External appearance of nose and ears normal. Oral cavity normal. NECK: JVD not raised. Mass not palpable. RESPIRATORY: Effort normal. LUNGS: Slightly decreased breath sounds. CARDIOVASCULAR: First and second sounds normal. No edema. ABDOMEN: Soft, non-tender. Liver and spleen not palpable. LYMPHATIC: No lymph node palpable in neck or axillae. PSYCHIATRY: Alert and oriented x3. Mood and affect normal. NEUROLOGICAL: Pupils equal. Cranial nerves grossly intact. Some sensation decreased distally. EXTREMITIES: Patient has no palpable dorsalis pedis. INVESTIGATIONS: White count 6.4, hemoglobin 15.6. D-dimer 0.39, potassium 4.4. BUN and creatinine are normal. Troponin less than 0.012 x3. LDL was not calculated. Triglycerides 501. HDL was low at 26. EKG normal sinus rhythm. Two-D echo shows preserved LV function, no wall motion abnormality. ASSESSMENT: 1. This patient presented with nonspecific cardiac symptoms with some EKG findings. Patient has multiple cardiac risk factors, including diabetes, hypertension, hyperlipidemia, smoker. He will need a stress test. 2. Diabetes mellitus, type 2, on oral hypoglycemic. 3. Essential hypertension. 4. Hyperlipidemia. 5. Primary osteoarthritis in multiple joints. 6. Peripheral neuropathy secondary to diabetes. 7. Suspect peripheral artery disease in a smoker and absent dorsalis pedis. 8. Obesity, body mass index 33.0. PLAN: Patient is on aspirin. Home medications are resumed. Accu-Cheks will be followed. Patient will be put on breathing treatment. Per Cardiology, patient will be undergoing a stress test. Will have the patient see a dietitian. Care was discussed with the patient. MMODL / IJN: [id number] /
[2017-10-05] MEDS ORDERED: ATORVASTATIN 20 MG TAB PO SCH (21:00)
--- NOTE | 2017-10-10 07:20 | CDI ---
Last Revision, March 2017 Documentation Clarification Form Date: 10/10/2017 From: Shefali Patel Phone: If you have a question about this query, please contact Emily Ga, Director Of Primary at [phone] between 8am and 5pm. Admit Date: 10/04/2017 9:40:00 PM Patient Name: Mendoza Teran Visit Number: [id number] Discharge Date: 10/05/2017 ATTENTION: The Clinical Documentation Specialists (CDI) and [facility] Coding Staff appreciate your assistance in clarifying documentation. Please respond to the clarification below the line at the bottom and electronically sign. The CDI & [facility] Coding staff will review the response and follow-up if needed. Please note: Queries are made part of the Legal Health Record. If you have any questions, please contact the author of this message via ITS. Dr. Thomas Hameed Patient had fairly sudden SOB and EKG changes per the H&P. Outpatient CXR showing COPD and pneumonia. CXR as inpatient is normal. No evidence of CHF. Accelerated hypertension Patient history/risk factors HTN, family hx premature CAD, DM PN, DM PVD, COPD , hx. tobacco BP in ER: 216/102, 160/79 and 130/67 Radiology findings: CXR normal Please clarify the condition, after study, that necessitated admission for this 1 day admission since it is not clearly identified. Thank you for your assistance MTDD
--- NOTE | 2017-10-10 10:40 | EST ---
Stress Test Results/Findings: Exam Performed: NM stress lexiscan cardiolite Exam Date: 10/05/17 Reason for Exam: ABN EKG Height: 6 ft 1 in Weight: 113.5 kg Protocol: jaguar scan Stage: na Duration of Exercise: na Resting Heart Rate: 66 Resting Blood Pressure: 136/74 Maximum Achieved Heart Rate: 87 Maximum Achieved Blood Pressure: 148/63 85% PMHR: na 100% PMHR: na METS: na Technologist Comment: Stress Test Results/Findings: This is a 62-year-old male with history of hypertension, diabetes and family history of ischemic heart disease and smoking history, being evaluated for cardiac status. Stress data Baseline EKG showed sinus rhythm with normal NV and QRS duration. Blood pressure at rest is 136/70. Pulse rate of 66. A standard dose of Lexiscan was infused. EKGs taken during and after infusion did not reveal any significant change from the baseline. Final impression #1 negative Lexiscan stress test #2. Report of an Nuclear images to begin by the radiologist. DAVID
== END 2017-10-05 18:28 | disposition left against medical advice (07) | DRG 192 ==
LOC: EC 17:35 → 6SEL 21:40
PROVIDERS: ADMIT Hospitalist; ATTEND Hospitalist
DX: J44.0 Chronic obstructive pulmonary disease with (acute) lower respiratory infection (principal); I11.0 Hypertensive heart disease with heart failure; R94.31 Abnormal electrocardiogram [ECG] [EKG]; R06.02 Shortness of breath; E11.42 Type 2 diabetes mellitus with diabetic polyneuropathy; E66.9 Obesity, unspecified; E78.5 Hyperlipidemia, unspecified; Z87.891 Personal history of nicotine dependence; H40.9 Unspecified glaucoma; I25.10 Atherosclerotic heart disease of native coronary artery without angina pectoris; I44.30 Unspecified atrioventricular block; I44.4 Left anterior fascicular block; M62.831 Muscle spasm of calf; I50.9 Heart failure, unspecified; M15.9 Polyosteoarthritis, unspecified; Z68.33 Body mass index [BMI] 33.0-33.9, adult; Z79.82 Long term (current) use of aspirin; Z79.84 Long term (current) use of oral hypoglycemic drugs; Z79.899 Other long term (current) drug therapy; Z82.49 Family history of ischemic heart disease and other diseases of the circulatory system; Z71.3 Dietary counseling and surveillance; E11.51 Type 2 diabetes mellitus with diabetic peripheral angiopathy without gangrene; F12.90 Cannabis use, unspecified, uncomplicated
CPT/HCPCS: 36415; 71046; 78452; 80053; 80061; 82550; 82553; 83735; 83880; 84484; 85025; 85379; 85610; 85730; 93005; 93017; 93306; 94640; 94760; 99285

== ENCOUNTER 2019-03-12 08:26 | Day surgery (SDC) | payer MEDICARE ==
[2019-03-10 14:01] VITALS: BMI 31.6
[~2019-03-12 08:26] MED LIST: LACTATED RINGERS 1,000 ML IV SCH; LIDOCAINE 1% 20 ML VIAL (10MG/ML) FOR IV START INTRADERMA PRN
[2019-03-12 08:53] VITALS: TEMP 97.2
[2019-03-12 09:07] LABS: Glucose,Whole Blood 215 mg/dL (75-99)
[2019-03-12] MEDS ORDERED: LIDOCAINE 1% INJ 10MG/ML (20 ML MDV) ONE (09:32)
[2019-03-12] MEDS ORDERED: PROPOFOL 10 MG/ML 20 ML VIAL IV ONE (09:32)
--- NOTE | 2019-03-12 09:56 | P.PCN ---
Date of Procedure: 03/12/19 Procedure(s) Performed: BRIEF HISTORY: Patient is a 64-year-old pleasant white female scheduled for an elective colonoscopy as a part of value should prior history of colon polyps. Last colonoscopy was 3 years ago. PROCEDURE PERFORMED: Colonoscopy. PREOPERATIVE DIAGNOSIS: History of colon polyps. IV sedation per Anesthesia. PROCEDURE: After informed consent was obtained, the patient, was brought into the endoscopy unit. IV sedation was administered by Anesthesia under continuous monitoring. Digital rectal examination was normal. Initially the Olympus CF-160 flexible video colonoscope was then inserted in the rectum, gradually advanced into the cecum without any difficulty. Careful examination was performed as the scope was gradually being withdrawn. Ileocecal valve and the appendiceal orifice were visualized and appeared normal. Prep was excellent. Mucosa of the cecum, ascending colon, transverse colon, descending colon, sigmoid colon, and rectum appeared normal. Scattered sigmoid diverticula cyst. Retroflexion was performed in the rectum and no lesions were seen. The patient tolerated the procedure well. IMPRESSION: Normal-appearing colon from rectum to cecum with no evidence of colorectal neoplasia Scattered sigmoid diverticulosis. RECOMMENDATIONS: Findings of this examination were discussed with the patient as well as his family. He was advised to have a repeat surveillance colonoscopy in 5 years from now because of the prior history of colon polyps..
[2019-03-12 10:00] VITALS: RESP 16
[2019-03-12 10:22] VITALS: BP 144/90; PULSE 68
[2019-03-12 10:22] LABS: Glucose,Whole Blood 212 mg/dL (75-99)
== END 2019-03-12 10:28 | disposition home or self-care (01) ==
LOC: ORWHC2ENDO 08:26
PROVIDERS: ATTEND Internal Medicine Gastroenterology
DX: Z12.11 Encounter for screening for malignant neoplasm of colon (principal); K57.30 Diverticulosis of large intestine without perforation or abscess without bleeding; I10 Essential (primary) hypertension; Z86.010 Personal history of colon polyps; Z79.84 Long term (current) use of oral hypoglycemic drugs; Z79.899 Other long term (current) drug therapy
CPT/HCPCS: J2001; J2704; G0105; 45378

== ENCOUNTER 2020-08-11 12:59 | Inpatient (IN) | payer MEDICARE ==
[2020-08-11] MEDS ORDERED: PIPERACILLIN-TAZOBACTAM 3.375 GM in SODIUM CHLORIDE 0.9% 100 ML IVPB STA (14:40)
[2020-08-11 14:50] LABS: Basophils # (A) 0.1 k/uL (0-0.2); Basophils % (A) 0 %; Eosinophils # (A) 0.1 k/uL (0-0.7); Eosinophils % (A) 1 %; HCT 43.3 % (39.0-53.0); HGB 14.8 gm/dL (13.0-17.5); Lymphocytes % (A) 8 %; MCH 32.3 pg (25.0-35.0); MCHC 34.1 g/dL (31.0-37.0); MCV 94.9 fL (80.0-100.0); Mean Platelet Volume 7.4; Monocytes # (A) 0.7 k/uL (0-1.0); Monocytes % (A) 5 %; Neutrophils # (A) 11.1 k/uL (1.3-7.7); Neutrophils % (A) 85 %; Platelet Count 325 k/uL (150-450); Poikilocytosis Slight; RBC 4.56 m/uL (4.30-5.90); RDW 12.8 % (11.5-15.5); WBC 13.1 k/uL (3.8-10.6)
[2020-08-11 14:55] LABS: ALT 13 U/L (4-49); AST 17 U/L (17-59); African American GFR (CKD) >90 (>60 ml/min/1.73 sqM); Albumin 3.7 g/dL (3.5-5.0); Alkaline Phosphatase 70 U/L (38-126); Anion Gap 16 mmol/L; Blood Urea Nitrogen 19 mg/dL (9-20); Calcium 9.3 mg/dL (8.4-10.2); Carbon Dioxide 22 mmol/L (22-30); Chloride 94 mmol/L (98-107); Glucose 226 mg/dL (74-99); Non-African American GFR(CKD) >90 (>60 ml/min/1.73 sqM); Potassium 4.3 mmol/L (3.5-5.1); Sodium 132 mmol/L (137-145); Total Bilirubin 0.8 mg/dL (0.2-1.3); Total Protein 6.4 g/dL (6.3-8.2)
--- NOTE | 2020-08-11 14:57 | XR ---
EXAMINATION TYPE: XR foot complete RT DATE OF EXAM: 08/11/2020 CLINICAL HISTORY: pain TECHNIQUE: Frontal, lateral and oblique images of the right foot are obtained. COMPARISON: None. FINDINGS: There is deformity of the head and neck region of the proximal phalanx of the great toe lat erally. This may reflect traumatic change however osteomyelitis is difficult to exclude. Correlate c linically. Remaining osseous structures appear unremarkable. IMPRESSION: As above
[2020-08-11 14:58] LABS: Partial Thromboplastin Time 23.6 sec (22.0-30.0); Prothrombin Time 10.8 sec (9.0-12.0)
--- NOTE | 2020-08-11 15:28 | ED ---
Wound/Laceration HPI - General Chief Complaint: Wound/Laceration Stated Complaint: diabetic wound infection Time Seen by Provider: 08/11/20 13:57 Source: patient, RN notes reviewed Mode of arrival: wheelchair Limitations: no limitations - History of Present Illness Initial Comments: This a 65-year-old male presents emergency Department chief complaint of right foot infection. Patient states that she was walking with sandals states he stepped on some [place] states that since it causes some puncturing to his foot. He started noticing some sores which have progressively worsening in which he's had low-grade temps, increasing pain. Patient was seen by PCP sent for admission. Patient has a known diabetic states she does not check his blood sugar, not well controlled. Patient denies any upper leg pain. He states redness is spreading to his mid villasenor region - Related Data Home Medications Medication Instructions Recorded Confirmed Atorvastatin [Lipitor] 20 mg PO HS 10/04/17 08/11/20 Cholecalciferol [Vitamin D3] 3,000 unit PO DAILY 10/04/17 08/11/20 Magnesium Oxide [Mag-Ox] 250 mg PO HS 10/04/17 08/11/20 Multivitamins, Thera [Multivitamin 1 tab PO DAILY 10/04/17 08/11/20 (formulary)] [place]-3 Fatty Acids/Fish Oil [Fish 1 cap PO DAILY 10/04/17 08/11/20 Oil 1,000 mg Softgel] amLODIPine BESYLATE [Norvasc] 10 mg PO DAILY 10/04/17 08/11/20 glipiZIDE [Glucotrol] 10 mg PO BID 10/04/17 08/11/20 metFORMIN HCL 1,000 mg PO BID 10/04/17 08/11/20 Aspirin 325 mg PO DAILY 03/10/19 08/11/20 Travoprost [Travatan Z 0.004%] 1 drop BOTH EYES HS 03/10/19 08/11/20 Amoxic-Pot Clav 875-125Mg 1 tab PO Q12HR 08/11/20 08/11/20 [Augmentin 875-125] Dapagliflozin Propanediol [Farxiga] 10 mg PO DAILY 08/11/20 08/11/20 Magnesium Oxide 400 mg PO BID 08/11/20 08/11/20 Repaglinide [Prandin] 2 mg PO TID 08/11/20 08/11/20 lisinopriL [Zestril] 20 mg PO DAILY 08/11/20 08/11/20 Allergies Allergy/AdvReac Type Severity Reaction Status Date / Time nickel Allergy Unknown Verified 08/11/20 14:26 Review of Systems ROS Statement: Those systems with pertinent positive or pertinent negative responses have been documented in the HPI. ROS Other: All systems not noted in ROS Statement are negative. Past Medical History Past Medical History: Heart Failure, Diabetes Mellitus, Hypertension Additional Past Medical History / Comment(s): glaucoma History of Any Multi-Drug Resistant Organisms: None Reported Past Surgical History: No Surgical Hx Reported Additional Past Surgical History / Comment(s): testicle surgery, thumb surgery, ankle surgery Past Anesthesia/Blood Transfusion Reactions: No Reported Reaction Past Psychological History: No Psychological Hx Reported Smoking Status: Current every day smoker Past Alcohol Use History: None Reported Past Drug Use History: Marijuana - Past Family History Father Family Medical History: CVA/TIA Additional Family Medical History / Comment(s): CABG x2 General Exam Limitations: no limitations General appearance: alert, in no apparent distress Head exam: Present: atraumatic, normocephalic, normal inspection Respiratory exam: Present: normal lung sounds bilaterally. Absent: respiratory distress, wheezes, rales, rhonchi, stridor Cardiovascular Exam: Present: normal rhythm, tachycardia, normal heart sounds. Absent: systolic murmur, diastolic murmur, rubs, gallop, clicks Extremities exam: Present: other (Right foot there are open wound, diabetic ulcer with erythema that spread to the lower distal one third of his leg, ten derness with palpation pulses are palpable there is purulent drainage noted) Course Vital Signs 08/11/20 13:01 Temperature 99.4 F Pulse Rate 106 H Respiratory 18 Rate Blood Pressure 123/68 O2 Sat by Pulse 97 Oximetry Medical Decision Making - Medical Decision Making Patient is found to have extensive diabetic foot ulcer, cellulitis requiring IV antibiotics, possible debridement. Patient will be admitted to medicine with consult to infectious disease. - Lab Data Result diagrams: 08/11/20 13:43 08/11/20 13:43 Lab Results 08/11/20 08/11/20 08/11/20 Range/Units 13:43 13:43 13:43 WBC 13.1 H (3.8-10.6) k/uL RBC 4.56 (4.30-5.90) m/uL Hgb 14.8 (13.0-17.5) gm/dL Hct 43.3 (39.0-53.0) % MCV 94.9 (80.0-100.0) fL MCH 32.3 (25.0-35.0) pg MCHC 34.1 (31.0-37.0) g/dL RDW 12.8 (11.5-15.5) % Plt Count 325 (150-450) k/uL MPV 7.4 Neutrophils % 85 % Lymphocytes % 8 % Monocytes % 5 % Eosinophils % 1 % Basophils % 0 % Neutrophils # 11.1 H (1.3-7.7) k/uL Lymphocytes # 1.0 (1.0-4.8) k/uL Monocytes # 0.7 (0-1.0) k/uL Eosinophils # 0.1 (0-0.7) k/uL Basophils # 0.1 (0-0.2) k/uL Poikilocytosis Slight PT 10.8 (9.0-12.0) sec INR 1.0 (<1.2) APTT 23.6 (22.0-30.0) sec Sodium (137-145) mmol/L Potassium (3.5-5.1) mmol/L Chloride (98-107) mmol/L Carbon Dioxide (22-30) mmol/L Anion Gap mmol/L BUN (9-20) mg/dL Creatinine (0.66-1.25) mg/dL Est GFR (CKD-EPI)AfAm (>60 ml/min/1.73 sqM) Est GFR (CKD-EPI)NonAf (>60 ml/min/1.73 sqM) Glucose (74-99) mg/dL Plasma Lactic Acid [place] 1.4 (0.7-2.0) mmol/L Calcium (8.4-10.2) mg/dL Total Bilirubin (0.2-1.3) mg/dL AST (17-59) U/L ALT (4-49) U/L Alkaline Phosphatase (38-126) U/L Total Protein (6.3-8.2) g/dL Albumin (3.5-5.0) g/dL 04/21/21 Range/Units 13:43 WBC (3.8-10.6) k/uL RBC (4.30-5.90) m/uL Hgb (13.0-17.5) gm/dL Hct (39.0-53.0) % MCV (80.0-100.0) fL MCH (25.0-35.0) pg MCHC (31.0-37.0) g/dL RDW (11.5-15.5) % Plt Count (150-450) k/uL MPV Neutrophils % % Lymphocytes % % Monocytes % % Eosinophils % % Basophils % % Neutrophils # (1.3-7.7) k/uL Lymphocytes # (1.0-4.8) k/uL Monocytes # (0-1.0) k/uL Eosinophils # (0-0.7) k/uL Basophils # (0-0.2) k/uL Poikilocytosis PT (9.0-12.0) sec INR (<1.2) APTT (22.0-30.0) sec Sodium 132 L (137-145) mmol/L Potassium 4.3 (3.5-5.1) mmol/L Chloride 94 L (98-107) mmol/L Carbon Dioxide 22 (22-30) mmol/L Anion Gap 16 mmol/L BUN 19 (9-20) mg/dL Creatinine 0.85 (0.66-1.25) mg/dL Est GFR (CKD-EPI)AfAm >90 (>60 ml/min/1.73 sqM) Est GFR (CKD-EPI)NonAf >90 (>60 ml/min/1.73 sqM) Glucose 226 H (74-99) mg/dL Plasma Lactic Acid [place] (0.7-2.0) mmol/L Calcium 9.3 (8.4-10.2) mg/dL Total Bilirubin 0.8 (0.2-1.3) mg/dL AST 17 (17-59) U/L ALT 13 (4-49) U/L Alkaline Phosphatase 70 (38-126) U/L Total Protein 6.4 (6.3-8.2) g/dL Albumin 3.7 (3.5-5.0) g/dL Disposition Clinical Impression: Diabetic ulcer of right foot, Cellulitis of right leg Disposition: ADMITTED IP TO THIS [facility] Condition: Fair Referrals: Gregor Lynch MD [Primary Care Provider] - 1-2 days
[2020-08-11] MEDS ORDERED: VANCOMYCIN IV PER PHARMACY 1 EACH MISC MISCELLANE PRN (15:29)
[2020-08-11] MEDS ORDERED: ACETAMINOPHEN TAB 325 MG TAB PO PRN (15:31)
[2020-08-11] MEDS ORDERED: NALOXONE 0.4 MG/ML 1 ML VIAL IV PRN (15:31)
[2020-08-11] MEDS ORDERED: ONDANSETRON 4 MG/2 ML VIAL IVP PRN (15:31)
[2020-08-11] MEDS ORDERED: VANCOMYCIN 2,000 MG in SODIUM CHLORIDE 0.9% 500 ML 500 ML IVPB STA (15:34)
[2020-08-11] MEDS: REPAGLINIDE 1 MG TAB PO SCH ×2 (16:31→23:25)
[2020-08-11 16:39] LABS: Glucose,Whole Blood 153 mg/dL (75-99)
[2020-08-11] MEDS ORDERED: glipiZIDE 10 MG TAB PO SCH (17:30)
--- NOTE | 2020-08-11 17:35 | P.HPIM ---
History of Present Illness H&P Date: 08/11/20 History of presenting illness: Patient is a 65-year-old male with a past medical history of type II [id number] diabetes mellitus, hypertension, hyperlipidemia, and daily cannabis use. He presented to the hospital as directed by his PCP for evaluation of a wound to his right foot. patient reports that on 07/31/20 he cut the bottom of his right foot on some [place] resulting in an open wound. Patient reports he did not realize how bad the injury was until [place] and felt the burning to the wound on his right foot. Patient states that over the past 3-4 days this wound became significantly larger and became accompanied by surrounding redness and drainage. Patient reports he began noticing the redness traveling up his foot yesterday and today noted the redness traveling up his leg since he went to the PCP who then sent him to the emergency department. Patient was seen and fully evaluated in the emergency department. X-ray right foot reported findings showing a deformity of the head and neck region of the proximal phalanx of the great toe laterally possibly reflecting traumatic change however osteomyelitis is difficult to exclude.leukocytosis with WBC count of 13.1 with a left shift and CRP elevated at 24.5. Patient started on IV antibiotics vancomycin and Zosyn. Pt was admitted under our services along with consults to infectious disease and podiatry for further evaluation. patient reports poorly controlled diabetes and denies monitoring daily blood glucose levels. He denies having any recent fever, chills, headache, lightheadedness, dizziness, chest pain or palpitations, shortness of breath, abdominal pain, nausea, vomiting, or experiencing any numbness/tingling/weakness in his extremities. Review of systems: Pertinent positives and negatives as discussed in HPI, a complete review of systems was performed and all other systems are negative. Physical exam: General: non toxic, no distress, appears at stated age Derm: warm, dry, diabetic ulcer right lateral distal region beneath fifth digit (Pinkie toe) of right foot extending upwards into the lateral surface Head: atraumatic, normocephalic, symmetric Eyes: EOMI, no lid lag, anicteric sclera Mouth: no lip lesion, mucus membranes moist Cardiovascular: S1S2 reg, no murmur, positive posterior tibial pulse bilateral, Lungs: CTA bilateral, no rhonchi, no rales , no accessory muscle use Abdominal: soft, nontender to palpation, no guarding, no appreciable organomegaly Ext: no gross muscle atrophy, no edema, no contractures Neuro: CN II-XI grossly intact, no focal neuro deficits Psych: Alert, oriented, appropriate affect Assessment and Plan of Care: Diabetic ulcer to right foot with surrounding cellulitis and concerns for possib le osteomyelitis -X-ray right foot reported findings showing a deformity of the head and neck region of the proximal phalanx of the great toe laterally possibly reflecting traumatic change however osteomyelitis is difficult to exclude. -WBC count of 13.1 with a left shift and CRP elevated at 24.5. -Order placed for MRI with IV contrast -IV antibiotics: Vancomycin and Zosyn -Wound culture. -Consult wound care. -Consult infectious disease, Clive Myers. -Consult podiatry, Dr. Tiwari. -Pain management and symptomatic treatment. Diabetes mellitus type 2 -Hold oral glycemic medications at this time place patient on glycemic protocol with sliding scale to maintain tight glycemic control throughout hospitalization. -Hemoglobin A1c to be drawn along with a.m. labs. -Heart healthy carb consistent diet. Hypertension -Monitor vital signs and continue daily medication management with lisinopril an d amlodipine. Hyperlipidemia -Continue daily medication regimen with atorvastatin 20 mg nightly. -Heart healthy carb consistent diet. The patient is admitted with an anticipated greater than 2 midnight stay for evaluation of diabetic ulcer to right foot with surrounding cellulitis and concerns for possible osteomyelitis. CODE STATUS: full code DVT prophylaxis: heparin Discussed with: patient and RN Anticipated discharge date: clinical course to determine Anticipated discharge place: home with possible homecare A total of 45 minutes was spent on the care of this complex patient more than 50% of the time was spent in counseling and care coordination. Past Medical History Past Medical History: Heart Failure, Diabetes Mellitus, Hypertension Additional Past Medical History / Comment(s): glaucoma History of Any Multi-Drug Resistant Organisms: None Reported Past Surgical History: No Surgical Hx Reported Additional Past Surgical History / Comment(s): testicle surgery, thumb surgery, ankle surgery Past Anesthesia/Blood Transfusion Reactions: No Reported Reaction Past Psychological History: No Psychological Hx Reported Smoking Status: Current every day smoker Past Alcohol Use History: None Reported Past Drug Use History: Marijuana - Past Family History Father Family Medical History: CVA/TIA Additional Family Medical History / Comment(s): CABG x2 Medications and Allergies Home Medications Medication Instructions Recorded Confirmed Type Atorvastatin [Lipitor] 20 mg PO HS 10/04/17 08/11/20 History Cholecalciferol [Vitamin D3] 3,000 unit PO DAILY 10/04/17 08/11/20 History Magnesium Oxide [Mag-Ox] 250 mg PO HS 10/04/17 08/11/20 History Multivitamins, Thera [Multivitamin 1 tab PO DAILY 10/04/17 08/11/20 History (formulary)] [place]-3 Fatty Acids/Fish Oil [Fish 1 cap PO DAILY 10/04/17 08/11/20 History Oil 1,000 mg Softgel] amLODIPine BESYLATE [Norvasc] 10 mg PO DAILY 10/04/17 08/11/20 History glipiZIDE [Glucotrol] 10 mg PO BID 10/04/17 08/11/20 History metFORMIN HCL 1,000 mg PO BID 10/04/17 08/11/20 History Aspirin 325 mg PO DAILY 03/10/19 08/11/20 History Travoprost [Travatan Z 0.004%] 1 drop BOTH EYES HS 03/10/19 08/11/20 History Amoxic-Pot Clav 875-125Mg 1 tab PO Q12HR 08/11/20 08/11/20 History [Augmentin 875-125] Dapagliflozin Propanediol [Farxiga] 10 mg PO DAILY 08/11/20 08/11/20 History Magnesium Oxide 400 mg PO BID 08/11/20 08/11/20 History Repaglinide [Prandin] 2 mg PO TID 08/11/20 08/11/20 History lisinopriL [Zestril] 20 mg PO DAILY 08/11/20 08/11/20 History Allergies Allergy/AdvReac Type Severity Reaction Status Date / Time nickel Allergy Unknown Verified 08/11/20 14:26 Physical Exam Vitals: Vital Signs Temp Pulse Resp BP Pulse Ox 08/11/20 13:01 99.4 F 106 H 18 123/68 97 Intake and Output 08/11/20 08/11/20 08/11/20 06:59 14:59 22:59 Other: Weight 108.862 kg Results CBC & Chem 7: 08/11/20 13:43 08/11/20 13:43 Labs: Abnormal Lab Results - Last 24 Hours (Table) 08/11/20 08/11/20 08/11/20 Range/Units 13:43 13:43 13:43 WBC 13.1 H (3.8-10.6) k/uL Neutrophils # 11.1 H (1.3-7.7) k/uL Sodium 132 L (137-145) mmol/L Chloride 94 L (98-107) mmol/L Glucose 226 H (74-99) mg/dL C-Reactive Protein 24.5 H (<1.0) mg/dL
[2020-08-11 17:56] LABS: Glucose,Whole Blood 107 mg/dL (75-99)
[2020-08-11] MEDS: INSULIN ASPART (NovoLOG) 100 UNIT/ML VIAL SQ SCH (18:52)
[2020-08-11] MEDS ORDERED: NON FORMULARY DRUG (Magnesium Oxide 250 MG Tab) PO SCH (21:00)
[2020-08-11] MEDS ORDERED: metFORMIN 500 MG TAB PO SCH (21:00)
--- NOTE | 2020-08-11 23:13 | MR ---
EXAMINATION TYPE: MR foot RT wo con DATE OF EXAM: 08/11/2020 COMPARISON: None HISTORY: X-RAY concerning for osteomyelitis, puncture wound. Multiplanar multiecho imaging of the right foot was performed without contrast. There is subcutaneous edema in the forefoot. This is seen in the dorsal and plantar aspect of the for efoot. The metatarsals have fairly normal signal pattern. There is slight deformity of the fourth met atarsal head suggestive of an old healed fracture. There is mixed signal in the head of the proximal phalanx of the big toe. This apparently relates to an old intra-articular chip fracture of the latera l aspect of the head of the proximal phalanx of the big toe. There is also some mild spurring at the IP joint of the big toe. There is on the T2 coronal images a slightly rounded area of increased signal in the plantar aspect o f the midfoot. This is seen at the base of the second metatarsal could be complex abscess. At the vianey ntar aspect of the midfoot there is also a more superficial complex irregular area within the subcuta neous tissues that is measuring 14 x 11 mm. IMPRESSION: Complex masses at the plantar aspect of the midfoot at the level of the base of the second metatarsal could be an abscess or hematoma. There is diffuse soft tissue swelling of the forefoot. No definite sign of osteomyelitis. Old fracture of the proximal phalanx of the big toe also evident on x-ray yesterday.
[2020-08-11] MEDS: LATANOPROST 0.005% OPHTH DROPS 2.5 ML BTL BOTH EYES SCH (23:24)
[2020-08-11] MEDS: ATORVASTATIN 20 MG TAB PO SCH (23:24)
[2020-08-11] MEDS: MAGNESIUM OXIDE 400 MG TAB PO SCH (23:25)
[2020-08-11] MEDS: PSYLLIUM HUSK 100% 6 GM PACKET PO SCH (23:26)
[2020-08-11] MEDS: HYDROmorphone 0.5 MG/0.5 ML SYRINGE IVP PRN (23:35)
[2020-08-12] MEDS ORDERED: PIPERACILLIN-TAZOBACTAM 3.375 GM in SODIUM CHLORIDE 0.9% 100 ML IVPB SCH ×2
[2020-08-12] MEDS: AMPICILLIN-SULBACTAM 3 GM in SODIUM CHLORIDE 0.9% 100 ML IVPB SCH ×4 (00:20→18:45)
[2020-08-12] MEDS: HEPARIN SODIUM,PORCINE/PF 5,000 UNIT/0.5 ML SYRINGE SQ SCH ×3 (01:26→17:19)
[2020-08-12] MEDS: HYDROmorphone 0.5 MG/0.5 ML SYRINGE IVP PRN ×5 (03:43→23:13)
[2020-08-12 05:29] LABS: HCT 41.3 % (39.0-53.0); HGB 13.6 gm/dL (13.0-17.5); MCV 97.1 fL (80.0-100.0); Mean Platelet Volume 7.1; Platelet Count 288 k/uL (150-450); Poikilocytosis Slight; RBC 4.25 m/uL (4.30-5.90); RDW 13.6 % (11.5-15.5); WBC 10.8 k/uL (3.8-10.6)
[2020-08-12 05:50] LABS: African American GFR (CKD) >90 (>60 ml/min/1.73 sqM); Anion Gap 17 mmol/L; Blood Urea Nitrogen 18 mg/dL (9-20); Calcium 8.9 mg/dL (8.4-10.2); Carbon Dioxide 16 mmol/L (22-30); Chloride 99 mmol/L (98-107); Glucose 159 mg/dL (74-99); Non-African American GFR(CKD) >90 (>60 ml/min/1.73 sqM); Potassium 4.2 mmol/L (3.5-5.1); Sodium 132 mmol/L (137-145)
[2020-08-12] MEDS: VANCOMYCIN 1,750 MG in SODIUM CHLORIDE 0.9% 500 ML 500 ML IVPB SCH ×2 (06:15→20:16)
[2020-08-12 07:05] LABS: Glucose,Whole Blood 169 mg/dL (75-99)
[2020-08-12] MEDS: INSULIN ASPART (NovoLOG) 100 UNIT/ML VIAL SQ SCH ×3 (08:05→18:43)
[2020-08-12] MEDS: PSYLLIUM HUSK 100% 6 GM PACKET PO SCH (08:20)
[2020-08-12] MEDS: MAGNESIUM OXIDE 400 MG TAB PO SCH ×3 (08:20→22:23)
--- NOTE | 2020-08-12 08:31 | CONS ---
CONSULTATION DATE OF SERVICE: 08/11/2020 REASON FOR CONSULTATION: Right diabetic foot infection. HISTORY OF PRESENT ILLNESS: The patient is a 65-year-old male with a past medical history significant for type 2 diabetes mellitus, hypertension, hyperlipidemia in this patient apparently cut the bottom of his right foot from about a week ago with resulting open wound. Patient did not realize the injury until the next day when he noticed some burning of the foot. He noticed , which he says he plucked out formation of the wound on the plantar aspect of the right foot at the base of the fifth toe. The patient on the next 3-4 days started having more swelling and redness of the right foot. The patient did have underlying neuropathy and denies significant pain except some pressure sensation. The patient did have mild drainage from it. The patient was evaluated by the primary care physician who advised the patient to go to the hospital. On arrival to the ER, the patient did have x-rays of the foot which did show some soft tissue swelling but no foreign body. The patient on arrival to the ER did have a low-grade fever of 99.4. He was tachycardia with a heart rate of 106. He did have elevated white count 13.1 with left shift. Creatinine has been normal. CRP was 24.5. [place] PCR was negative. The patient did have blood culture which is currently pending. The patient has been started on vancomycin and Zosyn. Infectious Disease was consulted for further management of antibiotic therapy. REVIEW OF SYSTEMS: Positive points have been mentioned in HPI. Rest of the systems are negative. PAST MEDICAL HISTORY: Diabetes mellitus, hypertension, heart failure. PAST SURGICAL HISTORY: Ankle surgery and thumb surgery. SOCIAL HISTORY: Current everyday smoker. Admitted to marijuana use. FAMILY HISTORY: Father with history of CVA, TIA. ALLERGIES: NICKEL. MEDICATIONS: Medications include the patient is currently on vancomycin, Pharmacy to dose, Zosyn, Tylenol, [place], Norvasc, Lipitor, Dilaudid, NovoLog, Zestril, Mag oxide, Narcan, Zofran, Metamucil, Prandin. PHYSICAL EXAMINATION: Blood pressure is 141/75, pulse of 64, temperature 98.9. He is 95% on room air. General description is an elderly male lying in bed in no distress. No tachypnea or accessory muscles of respiration use. HEENT: Examination shows no pallor or scleral icterus. Oral mucous membrane is dry. NECK: Trachea central. No thyromegaly. LUNGS: Unlabored breathing, clear to auscultation anteriorly. No wheeze or crackle. HEART: S1, S2. Regular rate and rhythm. ABDOMEN: Soft, no tenderness. No guarding or rigidity. EXTREMITIES: No edema of feet. Examination of the right foot: The patient did have swelling and redness with the wound at the base of the fifth toe with some purulent drainage which has been cultured. NEUROLOGICAL: Patient is awake, alert, oriented x3. Mood and affect normal. LABS: Hemoglobin is 14.8, white count 13.1, BUN of 19, creatinine 0.85. Electrolytes have been normal. Liver enzymes are normal. DIAGNOSTIC IMPRESSION: Patient with right diabetic foot infection with evidence of underlying abscess on the MRI, started with trauma about a week ago with progressive worsening symptoms. Will need to cover for the polymicrobial infection to diabetic foot infection. The patient has not been on any antibiotic more likely since . PLAN: 1. Vancomycin, pharmacy to dose, target of 15 while watching his kidney function closely. 2. Discontinue Zosyn with of nephrotoxicity and add Unasyn 3 grams q.6 hours. 3. Await for Podiatry evaluation and drainage of the abscess and deep cultures. 4. We will follow on clinical condition and culture to further adjust medication if needed. Thank you for this consultation. Will follow the patient along with you. MMODL / IJN: [id number] /
[2020-08-12] MEDS ORDERED: amLODIPine 10 MG TAB PO SCH ×2 (09:00→21:05)
[2020-08-12] MEDS ORDERED: lisinopriL 20 MG TAB PO SCH (09:00)
[2020-08-12] MEDS: PATIENT'S OWN (Dapagliflozin Propanediol [Farxiga] 10 MG Tablet) PO SCH (11:57)
[2020-08-12] MEDS: REPAGLINIDE 1 MG TAB PO SCH ×2 (11:57→18:43)
--- NOTE | 2020-08-12 12:00 | P.CONS ---
History of Present Illness - Reason for Consult Consult date: 08/12/20 Wound care - History of Present Illness His is a 65-year-old gentleman being seen by the wound care center on [address] for a diabetic foot ulcer probable De La Cruz grade 3. Patient was found to have an abscess in the MRI no evidence of osteo-myelitis at this time. He is scheduled to see podiatry for further evaluation of the abscess. Patient has significant ecchymosis eschar and nonviable tissue noted to the plantar aspect of the right foot. No drainage noted. Periwound shows induration and erythema. Patient states that apparently one week ago he stepped on something in his yard resulting in trauma. He was seen by his primary care physician who was given antibiotics. He was instructed to return a few days from the initial appointment where he was then sent into the emergency room for evaluation. Patient's past medical history significant for uncontrolled diabetes, heart failure and hypertension. Patient isn't every day smoker marijuana. He quit smoking cigarettes in 2017. Review Of Systems: Constitutional: No fever, no chills, no night sweats. No weight change. No weakness, fatigue or lethargy. No daytime sleepiness. Integumentary:reports wounds, no lesions. No rash or pruritus. No unusual bru ising. No change in hair or nails. Physical exam: General Appearance: Alert, cooperative, no distress, appears stated age. Skin: See HPI all other Skin color, texture, tugor normal, no rashes or lesions. Neurologic: Alert oriented x3 Assessment/plan: 1. Diabetic foot while her De La Cruz grade 3. Apply Santyl, saline moistened gauze, dry gauze, rolled gauze secured paper tape. Change daily. No nweightbearing to the right forefoot. May use healed to transfer. Patient to be evaluated by podiatry for possible surgical intervention. Patient will need outpatient wound care once he is discharged. We will be happy to see him in the wound care center upon discharge. 2. Nonhealing ulceration with muscle involvement to the right plantar foot Thank for the consultation any questions please contact the wound care center DNP note has been reviewed and discussed with Dr. Santoyo and the impression and plan of care has been directed as dictated. Past Medical History Past Medical History: Heart Failure, Diabetes Mellitus, Hypertension Additional Past Medical History / Comment(s): glaucoma History of Any Multi-Drug Resistant Organisms: None Reported Past Surgical History: No Surgical Hx Reported Additional Past Surgical History / Comment(s): testicle surgery, thumb surgery, ankle surgery Past Anesthesia/Blood Transfusion Reactions: No Reported Reaction Past Psychological History: No Psychological Hx Reported Smoking Status: Current every day smoker Past Alcohol Use History: None Reported Past Drug Use History: Marijuana - Past Family History Father Family Medical History: CVA/TIA Additional Family Medical History / Comment(s): CABG x2 Medications and Allergies Home Medications Medication Instructions Recorded Confirmed Type Atorvastatin [Lipitor] 20 mg PO HS 10/04/17 08/11/20 History Cholecalciferol [Vitamin D3] 3,000 unit PO DAILY 10/04/17 08/11/20 History Magnesium Oxide [Mag-Ox] 250 mg PO HS 10/04/17 08/11/20 History Multivitamins, Thera [Multivitamin 1 tab PO DAILY 10/04/17 08/11/20 History (formulary)] [place]-3 Fatty Acids/Fish Oil [Fish 1 cap PO DAILY 10/04/17 08/11/20 History Oil 1,000 mg Softgel] amLODIPine BESYLATE [Norvasc] 10 mg PO DAILY 10/04/17 08/11/20 History glipiZIDE [Glucotrol] 10 mg PO BID 10/04/17 08/11/20 History metFORMIN HCL 1,000 mg PO BID 10/04/17 08/11/20 History Aspirin 325 mg PO DAILY 03/10/19 08/11/20 History Travoprost [Travatan Z 0.004%] 1 drop BOTH EYES HS 03/10/19 08/11/20 History Amoxic-Pot Clav 875-125Mg 1 tab PO Q12HR 08/11/20 08/11/20 History [Augmentin 875-125] Dapagliflozin Propanediol [Farxiga] 10 mg PO DAILY 08/11/20 08/11/20 History Magnesium Oxide 400 mg PO BID 08/11/20 08/11/20 History Repaglinide [Prandin] 2 mg PO TID 08/11/20 08/11/20 History lisinopriL [Zestril] 20 mg PO DAILY 08/11/20 08/11/20 History Allergies Allergy/AdvReac Type Severity Reaction Status Date / Time nickel Allergy Unknown Verified 08/11/20 14:26 Physical Exam Vitals: Vital Signs Temp Pulse Pulse Resp BP BP Pulse Ox 08/12/20 05:00 96.1 F L 77 16 122/61 96 08/11/20 22:43 98.9 F 64 16 141/75 95 08/11/20 21:58 99.3 F 79 18 115/62 96 08/11/20 20:00 16 08/11/20 17:37 99.3 F 79 18 115/62 96 08/11/20 13:01 99.4 F 106 H 18 123/68 97 Intake and Output 08/11/20 08/12/20 08/12/20 22:59 06:59 14:59 Intake Total 590 Output Total 0 Balance 0 590 Intake: Oral 590 Output: Stool 0 Other: # Voids 0 3 Results CBC & Chem 7: 08/12/20 04:34 08/12/20 04:34 Labs: Abnormal Lab Results - Last 24 Hours (Table) 08/11/20 08/11/20 08/11/20 Range/Units 13:43 13:43 13:43 WBC 13.1 H (3.8-10.6) k/uL RBC (4.30-5.90) m/uL Neutrophils # 11.1 H (1.3-7.7) k/uL Sodium 132 L (137-145) mmol/L Chloride 94 L (98-107) mmol/L Carbon Dioxide (22-30) mmol/L Glucose 226 H (74-99) mg/dL POC Glucose (mg/dL) (75-99) mg/dL C-Reactive Protein 24.5 H (<1.0) mg/dL 08/11/20 08/11/20 08/12/20 Range/Units 16:28 17:53 04:34 WBC 10.8 H (3.8-10.6) k/uL RBC 4.25 L (4.30-5.90) m/uL Neutrophils # (1.3-7.7) k/uL Sodium (137-145) mmol/L Chloride (98-107) mmol/L Carbon Dioxide (22-30) mmol/L Glucose (74-99) mg/dL POC Glucose (mg/dL) 153 H 107 H (75-99) mg/dL C-Reactive Protein (<1.0) mg/dL 08/12/20 08/12/20 Range/Units 04:34 07:04 WBC (3.8-10.6) k/uL RBC (4.30-5.90) m/uL Neutrophils # (1.3-7.7) k/uL Sodium 132 L (137-145) mmol/L Chloride (98-107) mmol/L Carbon Dioxide 16 L (22-30) mmol/L Glucose 159 H (74-99) mg/dL POC Glucose (mg/dL) 169 H (75-99) mg/dL C-Reactive Protein (<1.0) mg/dL Microbiology - Last 24 Hours (Table) 08/11/20 14:55 Gram Stain - Preliminary Foot - Right Wound Culture - Preliminary Assessment and Plan (1) Non-healing ulcer of right foot with necrosis of muscle Current Visit: Yes Status: Acute Code(s): L97.513 - NON-PRS CHRONIC ULCER OTH PRT RIGHT FOOT W NECROS MUSCLE SNOMED Code(s): 082649060 (2) Diabetic ulcer of right foot Current Visit: Yes Status: Acute Code(s): E11.621 - TYPE 2 DIABETES MELLITUS WITH FOOT ULCER; L97.519 - NON-PRS CHRONIC ULCER OTH PRT RIGHT FOOT W UNSP SEVERITY SNOMED Code(s): 985196057
[2020-08-12 12:07] LABS: Glucose,Whole Blood 143 mg/dL (75-99)
[2020-08-12 14:36] VITALS: BMI 31.6
[2020-08-12 14:40] LABS: Hemoglobin A1C 8.2 % (4.0-6.0)
[2020-08-12] MEDS: COLLAGENASE 250 UNIT/GM OINTMENT 30 GM TUBE TOPICAL SCH (15:02)
--- NOTE | 2020-08-12 15:10 | P.PN ---
Subjective Progress Note Date: 08/12/20 Hospital course: Patient is a 65-year-old male with a past medical history of type II [id number] diabetes mellitus, hypertension, hyperlipidemia, and daily cannabis use. He presented to the hospital as directed by his PCP for evaluation of a wound to his right foot. patient reports that on 07/31/20 he cut the bottom of his right foot on some [place] resulting in an open wound. Patient reports he did not realize how bad the injury was until he [place] the [place] the next day and felt the burning to the wound on his right foot. Patient states that over the past 3-4 days this wound became significantly larger and became accompanied by surrounding redness and drainage. Patient reports he began noticing the redness traveling up his foot yesterday and today noted the redness traveling up his leg since he went to the PCP who then sent him to the emergency department. Patient was seen and fully evaluated in the emergency department. X-ray right foot reported findings showing a deformity of the head and neck region of the proximal phalanx of the great toe laterally possibly reflecting traumatic change however osteomyelitis is difficult to exclude.leukocytosis with WBC count of 13.1 with a left shift and CRP elevated at 24.5. Patient started on IV antibiotics vancomycin and Zosyn. Pt was admitted under our services along with consults to infectious disease and podiatry for further evaluation. MRI was completed showing complex masses at the plantar aspect of the midfoot and level of the base of the second metatarsal possibly representing an abscess or hematoma accompanied by diffuse soft tissue swelling of the forefoot, there were no definite signs of osteomyelitis reported. Physical exam: Patient was seen and fully evaluated at the bedside this morning. He appeared to be resting comfortably. MRI completed last night revealing complex masses at the plantar aspect of the midfoot and level of the base of the second metatarsal possibly representing an abscess or hematoma accompanied by diffuse soft tissue swelling of the forefoot, there were no definite signs of osteomyelitis reported. Morning WBC count 10.8 and hemoglobin A1c 8.2. Patient reports pain is currently controlled in his right foot, he denies having any other complaints at this time including headache, lightheadedness, dizziness, chills, diaphoresis, chest pain, palpitations, shortness of breath, abdominal pain, nausea, or vomiting. General: non toxic, no distress, appears at stated age Derm: warm, dry, diabetic ulcer right lateral distal region beneath fifth digit (Pinkie toe) of right foot extending upwards into the lateral surface Head: atraumatic, normocephalic, symmetric Eyes: EOMI, no lid lag, anicteric sclera Mouth: no lip lesion, mucus membranes moist Cardiovascular: S1S2 reg, no murmur, positive posterior tibial pulse bilateral, Lungs: CTA bilateral, no rhonchi, no rales , no accessory muscle use Abdominal: soft, nontender to palpation, no guarding, no appreciable organomegaly Ext: no gross muscle atrophy, no edema, no contractures Neuro: CN II-XI grossly intact, no focal neuro deficits Psych: Alert, oriented, appropriate affect Assessment and Plan of Care: Diabetic ulcer to right foot with surrounding cellulitis -X-ray right foot reported findings showing a deformity of the head and neck region of the proximal phalanx of the great toe laterally possibly reflecting traumatic change however osteomyelitis is difficult to exclude. -MRI completed last night revealing complex masses at the plantar aspect of the midfoot and level of the base of the second metatarsal possibly representing an abscess or hematoma accompanied by diffuse soft tissue swelling of the forefoot, there were no definite signs of osteomyelitis reported. -WBC count of 13.1 with a left shift and CRP elevated at 24.5. -Order placed for MRI with IV contrast -IV antibiotics: Vancomycin and Zosyn -Wound culture. -Consult wound care. -Consult infectious disease, Clive Myers. -Consult podiatry, Dr. Tiwari. -Pain management and symptomatic treatment. Diabetes mellitus type 2 -Hold oral glycemic medications at this time place patient on glycemic protocol with sliding scale to maintain tight glycemic control throughout hospitalization . -Hemoglobin A1c 8.2 -Heart healthy carb consistent diet. Hypertension -Monitor vital signs and continue daily medication management with lisinopril and amlodipine. Hyperlipidemia -Continue daily medication regimen with atorvastatin 20 mg nightly. -Heart healthy carb consistent diet. The patient is admitted with an anticipated greater than 2 midnight stay for evaluation of diabetic ulcer to right foot with surrounding cellulitis and concerns for possible osteomyelitis. CODE STATUS: full code DVT prophylaxis: heparin Discussed with: patient and RN Anticipated discharge date: clinical course to determine Anticipated discharge place: home with possible homecare A total of 45 minutes was spent on the care of this complex patient more than 50% of the time was spent in counseling and care coordination Objective - Vital Signs Vital signs: Vital Signs Temp 96.1 F L 08/12/20 05:00 Pulse 77 08/12/20 05:00 Resp 16 08/12/20 05:00 BP 122/61 08/12/20 05:00 Pulse Ox 96 08/12/20 05:00 Intake & Output 08/11/20 08/12/20 08/12/20 18:59 06:59 18:59 Intake Total 590 Output Total 0 Balance 590 Weight 108.862 kg Intake: Oral 590 Output: Stool 0 Other: # Voids 3 - Labs CBC & Chem 7: 08/12/20 04:34 08/12/20 04:34 Labs: Abnormal Lab Results - Last 24 Hours (Table) 08/11/20 08/11/20 08/11/20 Range/Units 13:43 13:43 13:43 WBC 13.1 H (3.8-10.6) k/uL RBC (4.30-5.90) m/uL Neutrophils # 11.1 H (1.3-7.7) k/uL Sodium 132 L (137-145) mmol/L Chloride 94 L (98-107) mmol/L Carbon Dioxide (22-30) mmol/L Glucose 226 H (74-99) mg/dL POC Glucose (mg/dL) (75-99) mg/dL C-Reactive Protein 24.5 H (<1.0) mg/dL 08/11/20 08/11/20 08/12/20 Range/Units 16:28 17:53 04:34 WBC 10.8 H (3.8-10.6) k/uL RBC 4.25 L (4.30-5.90) m/uL Neutrophils # (1.3-7.7) k/uL Sodium (137-145) mmol/L Chloride (98-107) mmol/L Carbon Dioxide (22-30) mmol/L Glucose (74-99) mg/dL POC Glucose (mg/dL) 153 H 107 H (75-99) mg/dL C-Reactive Protein (<1.0) mg/dL 08/12/20 08/12/20 Range/Units 04:34 07:04 WBC (3.8-10.6) k/uL RBC (4.30-5.90) m/uL Neutrophils # (1.3-7.7) k/uL Sodium 132 L (137-145) mmol/L Chloride (98-107) mmol/L Carbon Dioxide 16 L (22-30) mmol/L Glucose 159 H (74-99) mg/dL POC Glucose (mg/dL) 169 H (75-99) mg/dL C-Reactive Protein (<1.0) mg/dL Microbiology - Last 24 Hours (Table) 08/11/20 14:55 Gram Stain - Preliminary Foot - Right Wound Culture - Preliminary
--- NOTE | 2020-08-12 15:18 | PN ---
PROGRESS NOTE DATE OF SERVICE: 08/12/2020 REASON FOR FOLLOWUP: Right diabetic foot infection with abscess. INTERVAL HISTORY: The patient is currently afebrile. The patient is breathing comfortably. The patient's overall pain and discomfort to the right foot have decreased. No chest pain, shortness of breath or cough. No abdominal pain or diarrhea. PHYSICAL EXAMINATION: Blood pressure 122/61, pulse of 77. Temperature 96.9. He is 96% on room air. General description is an elderly male lying in bed in no distress. RESPIRATORY SYSTEM: Unlabored breathing. Clear to auscultation anteriorly. HEART: S1, S2. Regular rate and rhythm. ABDOMEN: Soft. No tenderness. Right foot did have significant swelling, though redness has slightly decreased with an abscess formation on the plantar aspect. LABS: The patient's white count normalized, down to 10.8, creatinine 0.74. Local culture is pending. DIAGNOSTIC IMPRESSION AND PLAN: Patient with right diabetic foot infection with underlying abscess. Waiting for podiatry evaluation and drainage of this abscess; should be done sooner. Patient is covered with Unasyn and vancomycin; to continue while waiting for the culture to finalize. Continue supportive care. MMODL / IJN: [id number] /
[2020-08-12 17:14] LABS: Glucose,Whole Blood 101 mg/dL (75-99)
[2020-08-12 20:05] LABS: Glucose,Whole Blood 166 mg/dL (75-99)
[2020-08-12] MEDS: LATANOPROST 0.005% OPHTH DROPS 2.5 ML BTL BOTH EYES SCH (21:57)
[2020-08-12] MEDS: ATORVASTATIN 20 MG TAB PO SCH ×2 (21:58→22:22)
[2020-08-13] MEDS: AMPICILLIN-SULBACTAM 3 GM in SODIUM CHLORIDE 0.9% 100 ML IVPB SCH ×5 (01:20→23:52)
[2020-08-13] MEDS: HEPARIN SODIUM,PORCINE/PF 5,000 UNIT/0.5 ML SYRINGE SQ SCH ×4 (01:22→23:11)
[2020-08-13] MEDS: HYDROmorphone 0.5 MG/0.5 ML SYRINGE IVP PRN ×3 (02:52→14:05)
[2020-08-13 05:30] LABS: HCT 39.3 % (39.0-53.0); HGB 13.5 gm/dL (13.0-17.5); Hypochromasia Slight; MCH 33.5 pg (25.0-35.0); MCHC 34.3 g/dL (31.0-37.0); MCV 97.8 fL (80.0-100.0); Mean Platelet Volume 7.1; Platelet Count 310 k/uL (150-450); Poikilocytosis Slight; RBC 4.01 m/uL (4.30-5.90); RDW 12.9 % (11.5-15.5); WBC 10.5 k/uL (3.8-10.6)
[2020-08-13 07:21] LABS: African American GFR (CKD) >90 (>60 ml/min/1.73 sqM); Anion Gap 14 mmol/L; Blood Urea Nitrogen 17 mg/dL (9-20); Calcium 8.5 mg/dL (8.4-10.2); Carbon Dioxide 20 mmol/L (22-30); Chloride 101 mmol/L (98-107); Glucose 121 mg/dL (74-99); Non-African American GFR(CKD) >90 (>60 ml/min/1.73 sqM); Potassium 4.4 mmol/L (3.5-5.1); Sodium 135 mmol/L (137-145)
[2020-08-13 07:29] LABS: Glucose,Whole Blood 130 mg/dL (75-99)
[2020-08-13] MEDS: VANCOMYCIN 1,750 MG in SODIUM CHLORIDE 0.9% 500 ML 500 ML IVPB SCH ×2 (08:01→18:45)
[2020-08-13] MEDS: INSULIN ASPART (NovoLOG) 100 UNIT/ML VIAL SQ SCH ×3 (08:03→17:58)
[2020-08-13] MEDS: REPAGLINIDE 2 MG PO SCH ×3 (09:17→17:58)
[2020-08-13] MEDS: amLODIPine 10 MG TAB PO SCH (09:17)
[2020-08-13] MEDS: PATIENT'S OWN (Dapagliflozin Propanediol [Farxiga] 10 MG Tablet) PO SCH (09:17)
[2020-08-13] MEDS: MAGNESIUM OXIDE 400 MG TAB PO SCH ×2 (09:18→21:46)
[2020-08-13] MEDS: lisinopriL 20 MG TAB PO SCH (09:18)
[2020-08-13] MEDS: PSYLLIUM HUSK 100% 6 GM PACKET PO SCH (09:18)
[2020-08-13] MEDS: COLLAGENASE 250 UNIT/GM OINTMENT 30 GM TUBE TOPICAL SCH (12:17)
[2020-08-13 12:18] LABS: Glucose,Whole Blood 152 mg/dL (75-99)
--- NOTE | 2020-08-13 12:24 | P.GSHP ---
History of Present Illness H&P Date: 08/13/20 Chief Complaint: Diabetic De La Cruz grade 3 ulcer with extending cellulitis right foot Patient is 65-year-old white male admitted to the hospital for treatment of a degrading infection of the right foot patient states a week ago he stepped on a twig or branch that penetrated the skin of his right foot. Patient states this has gotten progressively worse and was directed by his family doctor to go to the emergency room for treatment. Patient has since been seen by infectious disease in wound care. He is on vancomycin and Zosyn as well as Santyl ointment. - Constitutional Constitutional: Denies chills, Denies fever - EENT Eyes: denies blurred vision, denies pain - Cardiovascular Comment: Patient has diminished nonpalpable pedal flows of bilateral lower extremity. There is no atrophic changes other than loss of digital hair 10 Cardiovascular: Denies chest pain, Denies shortness of breath - Integumentary Comment: She has a full-thickness ulceration plantar aspect of the foot plantar to the fifth metatarsal head area. Patient has extending erythema edema cellulitis of the right lower extremity extending into the right leg. The fifth digit is dark and appears to be avascular as well as the area above the fifth metatarsal which the skin is black and appears to be avascular. Surrounding this is indurated erythematous dermis extending around the fifth metatarsal head and into the base of the foot extending laterally across the metatarsal bases 4 and 3. - Neurological Comment: Patient has diminished epicritic and pallesthetic sensations bilateral Neurological: Denies numbness, Denies weakness Past Medical History Past Medical History: Heart Failure, Diabetes Mellitus, Hypertension Additional Past Medical History / Comment(s): glaucoma History of Any Multi-Drug Resistant Organisms: None Reported Past Surgical History: No Surgical Hx Reported Additional Past Surgical History / Comment(s): testicle surgery, thumb surgery, ankle surgery Past Anesthesia/Blood Transfusion Reactions: No Reported Reaction Past Psychological History: No Psychological Hx Reported Smoking Status: Current every day smoker Past Alcohol Use History: None Reported Past Drug Use History: Marijuana - Past Family History Father Family Medical History: CVA/TIA Additional Family Medical History / Comment(s): CABG x2 Medications and Allergies Home Medications Medication Instructions Recorded Confirmed Type Atorvastatin [Lipitor] 20 mg PO HS 10/04/08/11/20 History Cholecalciferol [Vitamin D3] 3,000 unit PO DAILY 10/04/17 08/11/20 History Magnesium Oxide [Mag-Ox] 250 mg PO HS 10/04/17 08/11/20 History Multivitamins, Thera [Multivitamin 1 tab PO DAILY 10/04/17 08/11/20 History (formulary)] [place]-3 Fatty Acids/Fish Oil [Fish 1 cap PO DAILY 10/04/17 08/11/20 History Oil 1,000 mg Softgel] amLODIPine BESYLATE [Norvasc] 10 mg PO DAILY 10/04/17 08/11/20 History glipiZIDE [Glucotrol] 10 mg PO BID 10/04/17 08/11/20 History metFORMIN HCL 1,000 mg PO BID 10/04/17 08/11/20 History Aspirin 325 mg PO DAILY 03/10/19 08/11/20 History Travoprost [Travatan Z 0.004%] 1 drop BOTH EYES HS 03/10/19 08/11/20 History Amoxic-Pot Clav 875-125Mg 1 tab PO Q12HR 08/11/20 08/11/20 History [Augmentin 875-125] Dapagliflozin Propanediol [Farxiga] 10 mg PO DAILY 08/11/20 08/11/20 History Magnesium Oxide 400 mg PO BID 08/11/20 08/11/20 History Repaglinide [Prandin] 2 mg PO TID 08/11/20 08/11/20 History lisinopriL [Zestril] 20 mg PO DAILY 08/11/20 08/11/20 History Allergies Allergy/AdvReac Type Severity Reaction Status Date / Time nickel Allergy Unknown Verified 08/11/20 14:26 Surgical - Exam Vital Signs Temp Pulse Resp BP Pulse Ox 99.4 F 106 H 18 123/68 97 08/11/20 13:01 08/11/20 13:01 08/11/20 13:01 08/11/20 13:01 08/11/20 13:01 - Cardiovascular Patient has diminished nonpalpable pedal pulses bilateral feet there temperature of the feet is normal bilateral there appears to be no atrophic changes other than surrounding the area of the ulceration fifth metatarsal right and fifth digit. There is no digital hair. - Integumentary Full thickness necrotic ulcer plantar to the fifth metatarsal head area of the right foot. There is necrosis of the dermis dorsal aspect of the fifth metatarsal head with necrosis of the fifth digit. There is extending soft tissue degradation surrounding this area and extending into the plantar aspect of the foot. - Neurologic Patient has diminished epicritic and pallesthetic sensations bilateral. Patient has lack of protective sedation to the ankle joint bilateral. This consistent with diabetic neuropathy. - Musculoskeletal Patient has a gastrocnemius equinus bilateral otherwise range of motion of the remaining pedal joints are essentially normal symmetrical bilateral all inverters everters plantar flexors dorsiflexors grossly normal symmetrical bilateral Results - Labs 08/13/20 04:43 08/13/20 04:43 Abnormal Lab Results - Last 24 Hours (Table) 08/12/20 08/12/20 08/12/20 Range/Units 04:34 17:11 20:04 RBC (4.30-5.90) m/uL Sodium (137-145) mmol/L Carbon Dioxide (22-30) mmol/L Glucose (74-99) mg/dL POC Glucose (mg/dL) 101 H 166 H (75-99) mg/dL Hemoglobin A1c 8.2 H (4.0-6.0) % 08/13/20 08/13/20 08/13/20 Range/Units 04:43 04:43 07:28 RBC 4.01 L (4.30-5.90) m/uL Sodium 135 L (137-145) mmol/L Carbon Dioxide 20 L (22-30) mmol/L Glucose 121 H (74-99) mg/dL POC Glucose (mg/dL) 130 H (75-99) mg/dL Hemoglobin A1c (4.0-6.0) % Microbiology - Last 24 Hours (Table) 08/11/20 14:55 Gram Stain - Preliminary Foot - Right Wound Culture - Preliminary Group D Enterococcus 08/11/20 13:58 Blood Culture - Preliminary Blood No Growth after 24 hours 08/11/20 13:43 Blood Culture - Preliminary Blood No Growth after 24 hours Diabetes panel 08/12/20 08/13/20 Range/Units 04:34 04:43 Sodium 135 L (137-145) mmol/L Potassium 4.4 (3.5-5.1) mmol/L Chloride 101 (98-107) mmol/L Carbon Dioxide 20 L (22-30) mmol/L BUN 17 (9-20) mg/dL Creatinine 0.71 (0.66-1.25) mg/dL Glucose 121 H (74-99) mg/dL Hemoglobin A1c 8.2 H (4.0-6.0) % Calcium 8.5 (8.4-10.2) mg/dL Calcium panel 08/13/20 Range/Units 04:43 Calcium 8.5 (8.4-10.2) mg/dL Pituitary panel 08/13/20 Range/Units 04:43 Sodium 135 L (137-145) mmol/L Potassium 4.4 (3.5-5.1) mmol/L Chloride 101 (98-107) mmol/L Carbon Dioxide 20 L (22-30) mmol/L BUN 17 (9-20) mg/dL Creatinine 0.71 (0.66-1.25) mg/dL Glucose 121 H (74-99) mg/dL Calcium 8.5 (8.4-10.2) mg/dL Adrenal panel 08/13/20 Range/Units 04:43 Sodium 135 L (137-145) mmol/L Potassium 4.4 (3.5-5.1) mmol/L Chloride 101 (98-107) mmol/L Carbon Dioxide 20 L (22-30) mmol/L BUN 17 (9-20) mg/dL Creatinine 0.71 (0.66-1.25) mg/dL Glucose 121 H (74-99) mg/dL Calcium 8.5 (8.4-10.2) mg/dL Assessment and Plan Assessment: De La Cruz grade 3 ulceration with extending cellulitis and gangrenous changes of the right foot Plan: Exam. Discussed with patient findings and treatment. Due to the clinical appearance of this wound in the morbidity of the soft tissue surrounding the wound and discussed with patient I&D with possible amputation partial of this area. Discussed with patient complications prognosis risk expectations surgery. We will proceed with surgical I&D with possible partial amputation. His be nothing by mouth and discontinue any aspirin products. Time with Patient: Greater than 30
--- NOTE | 2020-08-13 14:06 | P.PN ---
Subjective Progress Note Date: 08/13/20 Hospital course: Patient is a 65-year-old male with a past medical history of type II [id number] diabetes mellitus, hypertension, hyperlipidemia, and daily cannabis use. He presented to the hospital as directed by his PCP for evaluation of a wound to his right foot. patient reports that on 07/31/20 he cut the bottom of his right foot on some [place] resulting in an open wound. Patient reports he did not realize how bad the injury was until [place] and felt the burning to the wound on his right foot. Patient states that over the past 3-4 days this wound became significantly larger and became accompanied by surrounding redness and drainage. Patient reports he began noticing the redness traveling up his foot yesterday and today noted the redness traveling up his leg since he went to the PCP who then sent him to the emergency department. Patient was seen and fully evaluated in the emergency department. X-ray right foot reported findings showing a deformity of the head and neck region of the proximal phalanx of the great toe laterally possibly reflecting traumatic change however osteomyelitis is difficult to exclude.leukocytosis with WBC count of 13.1 with a left shift and CRP elevated at 24.5. Patient started on IV antibiotics vancomycin and Zosyn. Pt was admitted under our services along with consults to infectious disease and podiatry for further evaluation. MRI was completed showing complex masses at the plantar aspect of the midfoot and level of the base of the second metatarsal possibly representing an abscess or hematoma accompanied by diffuse soft tissue swelling of the forefoot, there were no definite signs of osteomyelitis reported. Physical exam: Patient was seen and fully evaluated at the bedside this morning. He was sitting up at edge of bed, showing no signs of acute distress. He reports pain is controlled Patient was seen and evaluated by podiatry, plan to take pt to OR for I&D with possible partial amputation. General: non toxic, no distress, appears at stated age Derm: warm and dry with necrotic diabetic ulcer right lateral distal region beneath fifth digit of right foot extending upwards into the lateral surface with significant erythema extending upward towards dorsal surface of foot and anterior lower leg. Head: atraumatic, normocephalic, symmetric Eyes: EOMI, no lid lag, anicteric sclera Mouth: no lip lesion, mucus membranes moist Cardiovascular: S1S2 reg, no murmur, positive posterior tibial pulse bilateral, Lungs: CTA bilateral, no rhonchi, no rales , no accessory muscle use Abdominal: soft, nontender to palpation, no guarding, no appreciable organomegaly Ext: no gross muscle atrophy, no edema, no contractures Neuro: CN II-XI grossly intact, no focal neuro deficits Psych: Alert, oriented, appropriate affect Assessment and Plan of Care: Diabetic ulcer to right foot with surrounding cellulitis -X-ray right foot reported findings showing a deformity of the head and neck region of the proximal phalanx of the great toe laterally possibly reflecting traumatic change however osteomyelitis is difficult to exclude. -MRI completed last night revealing complex masses at the plantar aspect of the midfoot and level of the base of the second metatarsal possibly representing an abscess or hematoma accompanied by diffuse soft tissue swelling of the forefoot, there were no definite signs of osteomyelitis reported. -WBC count of 13.1 with a left shift and CRP elevated at 24.5. -Order placed for MRI with IV contrast -IV antibiotics: Vancomycin and Unasyn -Wound culture. -Consult wound care. -Consult infectious disease, Clive Myers. -Consult podiatry, Dr. Tiwari, plan to take pt to OR for I&D with possible partial amputation. -Pain management and symptomatic treatment. Diabetes mellitus type 2 -Hold oral glycemic medications at this time and place patient on glycemic protocol with sliding scale to maintain tight glycemic control throughout hospitalization. -Hemoglobin A1c 8.2 -Heart healthy carb consistent diet. Hypertension -Monitor vital signs and continue daily medication management with lisinopril and amlodipine. Hyperlipidemia -Continue daily medication regimen with atorvastatin 20 mg nightly. -Heart healthy carb consistent diet. CODE STATUS: full code DVT prophylaxis: heparin Discussed with: patient and RN Anticipated discharge date: clinical course to determine Anticipated discharge place: home with possible homecare A total of 45 minutes was spent on the care of this complex patient more than 50% of the time was spent in counseling and care coordination Objective - Vital Signs Vital signs: Vital Signs Temp 97.7 F 08/13/20 12:35 Pulse 86 08/13/20 12:35 Resp 18 08/13/20 12:35 BP 166/70 08/13/20 12:35 Pulse Ox 97 08/13/20 12:35 Intake & Output 04/22/21 04/23/21 04/23/21 18:59 06:59 18:59 Intake Total 700 Output Total 610 500 Balance 90 -500 Weight 108.862 kg Intake: Intake, IV Titration 700 Amount Ampicillin-Sulbactam 3 gm 200 In Sodium Chloride 0.9% 100 ml @ 200 mls/hr IVPB Q6HR [facility] Rx#:[id number] Vancomycin 1,750 mg In 500 Sodium Chloride 0.9% 500 ml 500 ml @ 167 mls/hr IVPB Q12H [facility] Rx#: [id number] Output: Urine 610 500 Other: Voiding Method Urinal # Voids 6 1 - Labs CBC & Chem 7: 08/13/20 04:43 08/13/20 04:43 Labs: Abnormal Lab Results - Last 24 Hours (Table) 08/12/20 08/12/20 08/12/20 Range/Units 04:34 17:11 20:04 RBC (4.30-5.90) m/uL Sodium (137-145) mmol/L Carbon Dioxide (22-30) mmol/L Glucose (74-99) mg/dL POC Glucose (mg/dL) 101 H 166 H (75-99) mg/dL Hemoglobin A1c 8.2 H (4.0-6.0) % 08/13/20 08/13/20 08/13/20 Range/Units 04:43 04:43 07:28 RBC 4.01 L (4.30-5.90) m/uL Sodium 135 L (137-145) mmol/L Carbon Dioxide 20 L (22-30) mmol/L Glucose 121 H (74-99) mg/dL POC Glucose (mg/dL) 130 H (75-99) mg/dL Hemoglobin A1c (4.0-6.0) % 08/13/20 Range/Units 12:17 RBC (4.30-5.90) m/uL Sodium (137-145) mmol/L Carbon Dioxide (22-30) mmol/L Glucose (74-99) mg/dL POC Glucose (mg/dL) 152 H (75-99) mg/dL Hemoglobin A1c (4.0-6.0) % Microbiology - Last 24 Hours (Table) 08/11/20 14:55 Gram Stain - Preliminary Foot - Right Wound Culture - Preliminary Group D Enterococcus 08/11/20 13:58 Blood Culture - Preliminary Blood No Growth after 24 hours 08/11/20 13:43 Blood Culture - Preliminary Blood No Growth after 24 hours
--- NOTE | 2020-08-13 15:48 | P.GSCN ---
History of Present Illness History of present illness: 65-year-old diabetic male, patient seen by his geologist petroleum Dr. Valdez he has a callus on the plantar surface aspect of the right foot which is infected and also there is a gangrene changes noted on the right foot fifth toe right foot is tender and there is a drainage of pus coming out from the plantar aspect of the ulcer. And right foot big toe is dusky and and old Neck is supple no bruit appreciated Chest is clear first and second sound normal Abdomen soft nontender Vascular examination femorals are 1+ bilateral PTDP by the Doppler right foot plantar aspect callus extending of the dorsum and plantar aspect the foot with drainage of pus and fifth toe is dusky and cold. Plan is amputation of the fifth toe along with the infected callus and I&D on the plantar aspect of the foot and debridement risk and complication discussed patient understand and we'll proceed Past Medical History Past Medical History: Heart Failure, Diabetes Mellitus, Hypertension Additional Past Medical History / Comment(s): glaucoma History of Any Multi-Drug Resistant Organisms: None Reported Past Surgical History: No Surgical Hx Reported Additional Past Surgical History / Comment(s): testicle surgery, thumb surgery, ankle surgery Past Anesthesia/Blood Transfusion Reactions: No Reported Reaction Past Psychological History: No Psychological Hx Reported Smoking Status: Current every day smoker Past Alcohol Use History: None Reported Past Drug Use History: Marijuana - Past Family History Father Family Medical History: CVA/TIA Additional Family Medical History / Comment(s): CABG x2 Medications and Allergies Home Medications Medication Instructions Recorded Confirmed Type Atorvastatin [Lipitor] 20 mg PO HS 10/04/17 08/11/20 History Cholecalciferol [Vitamin D3] 3,000 unit PO DAILY 10/04/17 08/11/20 History Magnesium Oxide [Mag-Ox] 250 mg PO HS 10/04/17 08/11/20 History Multivitamins, Thera [Multivitamin 1 tab PO DAILY 10/04/17 08/11/20 History (formulary)] [place]-3 Fatty Acids/Fish Oil [Fish 1 cap PO DAILY 10/04/17 08/11/20 History Oil 1,000 mg Softgel] amLODIPine BESYLATE [Norvasc] 10 mg PO DAILY 10/04/17 08/11/20 History glipiZIDE [Glucotrol] 10 mg PO BID 10/04/17 08/11/20 History metFORMIN HCL 1,000 mg PO BID 10/04/17 08/11/20 History Aspirin 325 mg PO DAILY 03/10/19 08/11/20 History Travoprost [Travatan Z 0.004%] 1 drop BOTH EYES HS 03/10/19 08/11/20 History Amoxic-Pot Clav 875-125Mg 1 tab PO Q12HR 08/11/20 08/11/20 History [Augmentin 875-125] Dapagliflozin Propanediol [Farxiga] 10 mg PO DAILY 08/11/20 08/11/20 History Magnesium Oxide 400 mg PO BID 08/11/20 08/11/20 History Repaglinide [Prandin] 2 mg PO TID 08/11/20 08/11/20 History lisinopriL [Zestril] 20 mg PO DAILY 08/11/20 08/11/20 History Allergies Allergy/AdvReac Type Severity Reaction Status Date / Time nickel Allergy Unknown Verified 08/11/20 14:26 Surgical - Exam Vital Signs Temp Pulse Resp BP Pulse Ox 99.4 F 106 H 18 123/68 97 08/11/20 13:01 08/11/20 13:01 08/11/20 13:01 08/11/20 13:01 08/11/20 13:01 Results - Labs 08/13/20 04:43 08/13/20 04:43 Abnormal Lab Results - Last 24 Hours (Table) 08/12/20 08/12/20 08/13/20 Range/Units 17:11 20:04 04:43 RBC (4.30-5.90) m/uL Sodium 135 L (137-145) mmol/L Carbon Dioxide 20 L (22-30) mmol/L Glucose 121 H (74-99) mg/dL POC Glucose (mg/dL) 101 H 166 H (75-99) mg/dL 08/13/20 08/13/20 08/13/20 Range/Units 04:43 07:28 12:17 RBC 4.01 L (4.30-5.90) m/uL Sodium (137-145) mmol/L Carbon Dioxide (22-30) mmol/L Glucose (74-99) mg/dL POC Glucose (mg/dL) 130 H 152 H (75-99) mg/dL Microbiology - Last 24 Hours (Table) 08/11/20 14:55 Gram Stain - Preliminary Foot - Right Wound Culture - Preliminary Group D Enterococcus 08/11/20 13:58 Blood Culture - Preliminary Blood No Growth after 24 hours 08/11/20 13:43 Blood Culture - Preliminary Blood No Growth after 24 hours Diabetes panel 08/13/20 Range/Units 04:43 Sodium 135 L (137-145) mmol/L Potassium 4.4 (3.5-5.1) mmol/L Chloride 101 (98-107) mmol/L Carbon Dioxide 20 L (22-30) mmol/L BUN 17 (9-20) mg/dL Creatinine 0.71 (0.66-1.25) mg/dL Glucose 121 H (74-99) mg/dL Calcium 8.5 (8.4-10.2) mg/dL Calcium panel 08/13/20 Range/Units 04:43 Calcium 8.5 (8.4-10.2) mg/dL Pituitary panel 08/13/20 Range/Units 04:43 Sodium 135 L (137-145) mmol/L Potassium 4.4 (3.5-5.1) mmol/L Chloride 101 (98-107) mmol/L Carbon Dioxide 20 L (22-30) mmol/L BUN 17 (9-20) mg/dL Creatinine 0.71 (0.66-1.25) mg/dL Glucose 121 H (74-99) mg/dL Calcium 8.5 (8.4-10.2) mg/dL Adrenal panel 08/13/20 Range/Units 04:43 Sodium 135 L (137-145) mmol/L Potassium 4.4 (3.5-5.1) mmol/L Chloride 101 (98-107) mmol/L Carbon Dioxide 20 L (22-30) mmol/L BUN 17 (9-20) mg/dL Creatinine 0.71 (0.66-1.25) mg/dL Glucose 121 H (74-99) mg/dL Calcium 8.5 (8.4-10.2) mg/dL
[2020-08-13] MEDS ORDERED: IV FLUID CONTINUATION 1,000 ML IV ONE (17:04)
[2020-08-13 17:07] LABS: Glucose,Whole Blood 95 mg/dL (75-99)
[2020-08-13] MEDS ORDERED: LIDOCAINE 1% INJ 10MG/ML (20 ML MDV) ONE (18:31)
[2020-08-13] MEDS ORDERED: SUCCINYLCHOLINE CHLORIDE 100 MG/5 ML SYR IV ONE (18:31)
[2020-08-13] MEDS ORDERED: MIDAZOLAM 2 MG/2 ML VIAL ONE (18:31)
[2020-08-13] MEDS ORDERED: fentaNYL (PF) 50 MCG/ML 2 ML AMP ONE (18:31)
[2020-08-13] MEDS ORDERED: PROPOFOL 10 MG/ML 20 ML VIAL IV ONE (18:31)
[2020-08-13] MEDS ORDERED: ONDANSETRON 4 MG/2 ML VIAL ONE (18:31)
[2020-08-13] MEDS ORDERED: DEXAMETHASONE SOD PHOSPHATE 10 MG/ML 1 ML VIAL ONE (18:31)
[2020-08-13] MEDS ORDERED: HYDROmorphone 0.5 MG/0.5 ML SYRINGE IVP ONE ×2 (19:35→19:45)
[2020-08-13 19:49] LABS: Glucose,Whole Blood 104 mg/dL (75-99)
[2020-08-13 20:30] LABS: Glucose,Whole Blood 120 mg/dL (75-99)
[2020-08-13] MEDS: LATANOPROST 0.005% OPHTH DROPS 2.5 ML BTL BOTH EYES SCH (21:46)
[2020-08-13] MEDS: ATORVASTATIN 20 MG TAB PO SCH (21:46)
[2020-08-14] MEDS ORDERED: VANCOMYCIN TROUGH DUE 1 EACH MISC MISCELLANE ONE (05:00)
[2020-08-14] MEDS: AMPICILLIN-SULBACTAM 3 GM in SODIUM CHLORIDE 0.9% 100 ML IVPB SCH ×4 (05:14→23:37)
[2020-08-14] MEDS: VANCOMYCIN 1,750 MG in SODIUM CHLORIDE 0.9% 500 ML 500 ML IVPB SCH (05:56)
[2020-08-14 06:56] LABS: African American GFR (CKD) >90 (>60 ml/min/1.73 sqM); Non-African American GFR(CKD) >90 (>60 ml/min/1.73 sqM)
[2020-08-14 07:15] LABS: Glucose,Whole Blood 175 mg/dL (75-99)
--- NOTE | 2020-08-14 07:19 | PN ---
PROGRESS NOTE DATE OF SERVICE: 08/13/2020. REASON FOR FOLLOWUP: Right diabetic foot infection with an abscess. INTERVAL HISTORY: Patient was seen on rounds this morning. The patient has been afebrile. Pain to the right foot is currently controlled. No chest pain, shortness of breath or cough. No nausea, vomiting. No abdominal pain, no diarrhea. PHYSICAL EXAMINATION: Blood pressure 146/73, pulse of 74, temperature 98.2. He is 93% on room air. General description is an elderly male lying in bed in no distress. Respiratory system: Unlabored breathing, clear to auscultation anteriorly. Heart S1, S2. Regular rate and rhythm. Abdomen soft, no tenderness. The right foot is currently dressed up. Swelling is slightly decreased. Minimal drainage. LABS: Wound culture showing group D Enterococcus. DIAGNOSTIC IMPRESSION AND PLAN: Patient with right diabetic foot infection with underlying abscess. The patient was admitted to the hospital on 08/11. Has not been seen by podiatry, consulted from the ER. Hence, vascular surgeon was consulted as the patient needs incision and drainage of this abscess. Decision for this was discussed with the admitting physician. Patient is covered with Unasyn and vancomycin. Will continue while waiting for the culture to finalize. Continue supportive care. MMODL / IJN: [id number] /
--- NOTE | 2020-08-14 07:37 | OP ---
OPERATIVE REPORT PREOP DIAGNOSES: Infected gangrene of the right foot involving the dorsum and plantar aspect of the foot at the 5th metatarsophalangeal joint area and there is a full-thickness ulcer on the plantar aspect of the right foot with the drainage of pus. POSTOP DIAGNOSES: Infected gangrene of the right foot involving the dorsum and plantar aspect of the foot at the 5th metatarsophalangeal joint area and there is a full-thickness ulcer on the plantar aspect of the right foot with the drainage of pus. OPERATION PERFORMED: Ray amputation of the right foot involving the fifth toe at the mid metatarsal region and extensive debridement of the dorsal aspect and plantar aspect of the foot. DESCRIPTION OF PROCEDURE: All the tendons were devitalized and there was foul odor smell and pus was noted. After that, under anesthesia, foot was prepped and drapes applied in the usual sterile manner. Incision was made on the dorsum aspect of the foot, deepened through skin fat and the tendons and incision extended to the plantar aspect down to subcutaneous tissue, fat and the tendons until we reached the 5th metatarsal bone which was divided with a bone cutter and all the devitalized tissue was excised with sharp knife and specimen was removed, which was sent for culture and sensitivity. There was also noted to have some pus coming out on the plantar aspect of the foot. We also took culture of that area. No active bleeding was noted. Wound was copiously irrigated with hydrogen peroxide and saline. Preop measurement of the wound is 10 x 2 cm and post debridement is 10 x 2 x 3 cm. Santyl cream applied to the wound and dressing was applied. Prognosis is guarded. We will change the dressing daily with Santyl cream and the patient is on IV antibiotic under care of Infectious Disease. MMODL / IJN: [id number] /
[2020-08-14] MEDS: REPAGLINIDE 2 MG PO SCH ×3 (09:42→17:12)
[2020-08-14] MEDS: MAGNESIUM OXIDE 400 MG TAB PO SCH ×2 (09:43→20:40)
[2020-08-14] MEDS: amLODIPine 10 MG TAB PO SCH (09:44)
[2020-08-14] MEDS: COLLAGENASE 250 UNIT/GM OINTMENT 30 GM TUBE TOPICAL SCH (09:44)
[2020-08-14] MEDS: lisinopriL 20 MG TAB PO SCH (09:44)
[2020-08-14] MEDS: HEPARIN SODIUM,PORCINE/PF 5,000 UNIT/0.5 ML SYRINGE SQ SCH ×3 (09:44→23:37)
[2020-08-14] MEDS: PATIENT'S OWN (Dapagliflozin Propanediol [Farxiga] 10 MG Tablet) PO SCH ×2 (09:44→10:23)
[2020-08-14] MEDS: INSULIN ASPART (NovoLOG) 100 UNIT/ML VIAL SQ SCH ×3 (09:45→17:38)
[2020-08-14] MEDS: PSYLLIUM HUSK 100% 6 GM PACKET PO SCH (09:53)
[2020-08-14] MEDS: HYDROmorphone 0.5 MG/0.5 ML SYRINGE IVP PRN ×2 (10:07→19:38)
[2020-08-14 11:23] LABS: Glucose,Whole Blood 228 mg/dL (75-99)
--- NOTE | 2020-08-14 11:34 | PN ---
PROGRESS NOTE A 64-year-old diabetic male who has a 2 weeks history of left foot wound on the plantar aspect of the foot with infected callus. The patient came to the hospital. He has a marked redness and swelling of the left foot with an infected callus of the plantar aspect of the foot. The patient was taken to the operating room. The patient had a ray amputation of the fifth toe along with the mid metatarsal of the fifth toe and all the tendons were infected and there was devitalized tissue which was excised completely. Tissue was sent for deep culture. We have changed the dressing today. Santyl cream was applied to the wound. His femorals are 1+ PT DP by the Doppler. PLAN: We will continue the Santyl cream and we will arrange for angiogram to evaluate the circulation. The patient is under care of Infectious Disease for IV antibiotics. Advised nonweightbearing. He can walk on the heel with a walker. MMODL / IJN: [id number] /
--- NOTE | 2020-08-14 12:52 | P.PN ---
Subjective Progress Note Date: 08/14/20 Principal diagnosis: Foot infection Feeling ok, no complaints. No pain or sob. No fevers. Objective - Vital Signs Vital signs: Vital Signs Temp 98.4 F 08/14/20 12:30 Pulse 95 08/14/20 12:30 Resp 14 08/14/20 12:30 BP 147/81 08/14/20 12:30 Pulse Ox 97 08/14/20 12:30 Intake & Output 08/13/20 08/14/20 08/14/20 18:59 06:59 18:59 Intake Total 800 1300 Output Total 500 1010 Balance 300 290 Intake: IV 800 0 Intake, IV Titration 700 Amount Ampicillin-Sulbactam 3 gm 200 In Sodium Chloride 0.9% 100 ml @ 200 mls/hr IVPB Q6HR [facility] Rx#:[id number] Vancomycin 1,750 mg In 500 Sodium Chloride 0.9% 500 ml 500 ml @ 167 mls/hr IVPB Q12H [facility] Rx#: [id number] Oral 600 Output: Urine 500 1000 Stool 0 Estimated Blood Loss 10 Other: Voiding Method Urinal Urinal # Voids 3 1 - Exam General: non toxic, no distress, appears at stated age Derm: warm and dry with necrotic diabetic ulcer right lateral distal region beneath fifth digit of right foot extending upwards into the lateral surface with significant erythema extending upward towards dorsal surface of foot and anterior lower leg. Head: atraumatic, normocephalic, symmetric Eyes: EOMI, no lid lag, anicteric sclera Mouth: no lip lesion, mucus membranes moist Cardiovascular: S1S2 reg, no murmur, positive posterior tibial pulse bilateral, Lungs: CTA bilateral, no rhonchi, no rales , no accessory muscle use Abdominal: soft, nontender to palpation, no guarding, no appreciable organomegaly Ext: no gross muscle atrophy, no edema, no contractures Neuro: CN II-XI grossly intact, no focal neuro deficits Psych: Alert, oriented, appropriate affect - Labs CBC & Chem 7: 08/13/20 04:43 08/14/20 05:39 Labs: Abnormal Lab Results - Last 24 Hours (Table) 08/13/20 08/13/20 08/14/20 Range/Units 19:47 20:29 07:13 POC Glucose (mg/dL) 104 H 120 H 175 H (75-99) mg/dL 08/14/20 Range/Units 11:21 POC Glucose (mg/dL) 228 H (75-99) mg/dL Microbiology - Last 24 Hours (Table) 08/13/20 19:17 Gram Stain - Preliminary Toe - Right Fifth Tissue Culture - Preliminary 08/13/20 19:17 Gram Stain - Preliminary Toe - Right Fifth Wound Culture - Preliminary 08/13/20 19:17 Anaerobic Culture - Preliminary Toe - Right Fifth 08/13/20 19:17 Anaerobic Culture - Preliminary Toe - Right Fifth 08/11/20 13:58 Blood Culture - Preliminary Blood No Growth after 48 hours 08/11/20 13:43 Blood Culture - Preliminary Blood No Growth after 48 hours 08/11/20 14:55 Gram Stain - Preliminary Foot - Right Wound Culture - Preliminary Group D Enterococcus Assessment and Plan Plan: Diabetic ulcer to right foot with surrounding cellulitis s/p amputation of the fifth toe along with the infected callus and I&D on the plantar aspect of the foot -X-ray right foot reported findings showing a deformity of the head and neck region of the proximal phalanx of the great toe laterally possibly reflecting traumatic change however osteomyelitis is difficult to exclude. -MRI completed last night revealing complex masses at the plantar aspect of the midfoot and level of the base of the second metatarsal possibly representing an abscess or hematoma accompanied by diffuse soft tissue swelling of the forefoot, there were no definite signs of osteomyelitis reported. -WBC count of 13.1 with a left shift and CRP elevated at 24.5. -IV antibiotics: Vancomycin and Unasyn -Wound culture. -Consult wound care. -Consult infectious disease, , Clive. -Pain management and symptomatic treatment. Diabetes mellitus type 2 -Hold oral glycemic medications at this time -Start lantus 5 units q hs -Continue sliding scale -Hemoglobin A1c 8.2 -Heart healthy carb consistent diet. Hypertension -Monitor vital signs and continue daily medication management with lisinopril and amlodipine. Hyperlipidemia -Continue daily medication regimen with atorvastatin 20 mg nightly. -Heart healthy carb consistent diet. CODE STATUS: full code DVT prophylaxis: heparin Discussed with: patient and RN Anticipated discharge date: clinical course to determine Anticipated discharge place: home with possible homecare A total of 45 minutes was spent on the care of this complex patient more than 50% of the time was spent in counseling and care coordination
[2020-08-14 17:09] LABS: Glucose,Whole Blood 192 mg/dL (75-99)
--- NOTE | 2020-08-14 19:26 | PN ---
PROGRESS NOTE DATE OF SERVICE: 08/14/2020 REASON FOR FOLLOWUP: Right foot abscess and gangrene. INTERVAL HISTORY: Patient is status post amputation of the right 5th toe and debridement on the dorsum of the foot. The patient has tolerated the procedure. This morning the patient is afebrile. The pain is controlled. No chest pain, shortness of breath or cough. No abdominal pain, no diarrhea. PHYSICAL EXAMINATION: Blood pressure 147/81, pulse of 95, temperature 98.4. He is 97% on room air. General description is an elderly male lying in bed in no distress. Respiratory system: Unlabored breathing, clear to auscultation anteriorly. Heart S1, S2. Regular rate and rhythm. Abdomen soft, no tenderness. Right foot is currently dressed up. No obvious drainage. LABS: Creatinine 0.84. Culture showing Enterococcus faecalis. DIAGNOSTIC IMPRESSION AND PLAN: Patient with right diabetic foot infection with underlying abscess and infected gangrene. Culture with Enterococcus faecalis penicillin sensitive, to continue with Unasyn. Will wait for the wound culture to finalize. He will likely need a PICC line for outpatient antibiotic in view of extensive infection. Continue supportive care. MMODL / IJN: [id number] /
[2020-08-14 20:29] LABS: Glucose,Whole Blood 208 mg/dL (75-99)
[2020-08-14] MEDS: LATANOPROST 0.005% OPHTH DROPS 2.5 ML BTL BOTH EYES SCH (20:39)
[2020-08-14] MEDS: ATORVASTATIN 20 MG TAB PO SCH (20:40)
[2020-08-14] MEDS ORDERED: INSULIN DETEMIR (LEVEMIR) 100 UNIT/ML SYR SQ SCH (21:00)
[2020-08-15] MEDS: HYDROmorphone 0.5 MG/0.5 ML SYRINGE IVP PRN ×5 (00:11→21:48)
[2020-08-15] MEDS: AMPICILLIN-SULBACTAM 3 GM in SODIUM CHLORIDE 0.9% 100 ML IVPB SCH ×4 (05:30→23:28)
[2020-08-15 07:08] LABS: Glucose,Whole Blood 174 mg/dL (75-99)
[2020-08-15] MEDS: COLLAGENASE 250 UNIT/GM OINTMENT 30 GM TUBE TOPICAL SCH (07:22)
[2020-08-15] MEDS: PATIENT'S OWN (Dapagliflozin Propanediol [Farxiga] 10 MG Tablet) PO SCH ×2 (07:22→07:43)
[2020-08-15] MEDS: MAGNESIUM OXIDE 400 MG TAB PO SCH ×2 (07:41→21:48)
[2020-08-15] MEDS: lisinopriL 20 MG TAB PO SCH (07:41)
[2020-08-15] MEDS: HEPARIN SODIUM,PORCINE/PF 5,000 UNIT/0.5 ML SYRINGE SQ SCH ×3 (07:41→23:28)
[2020-08-15] MEDS: INSULIN ASPART (NovoLOG) 100 UNIT/ML VIAL SQ SCH ×3 (07:41→17:36)
[2020-08-15] MEDS: amLODIPine 10 MG TAB PO SCH (07:41)
--- NOTE | 2020-08-15 07:42 | P.PN ---
Progress Note - Text This 65-year-old diabetic male, Patient came with infected gangrene of the right foot involving the fifth toe and plantar dorsal aspect of the foot patient went for ray amputation and a extensive wound debridement. We have changed the dressing using Santyl cream final culture report is pending under care of infectious disease. Continue with local wound care
[2020-08-15] MEDS: REPAGLINIDE 2 MG PO SCH ×3 (08:27→17:23)
[2020-08-15] MEDS: PSYLLIUM HUSK 100% 6 GM PACKET PO SCH (08:27)
[2020-08-15 10:31] LABS: African American GFR (CKD) 107.9 (60.0-200.0); Non-African American GFR(CKD) 93.1 (60.0-200.0)
[2020-08-15 11:26] LABS: Glucose,Whole Blood 241 mg/dL (75-99)
--- NOTE | 2020-08-15 15:18 | P.PN ---
Subjective Progress Note Date: 08/15/20 Principal diagnosis: Foot infection Patient is doing well. Dressing changes done today by vascular. No overnight events or complaints. Objective - Vital Signs Vital signs: Vital Signs Temp 97.9 F 08/15/20 12:40 Pulse 87 08/15/20 12:40 Resp 16 08/15/20 12:40 BP 150/80 08/15/20 12:40 Pulse Ox 97 08/15/20 12:40 Intake & Output 08/14/20 08/15/20 08/15/20 18:59 06:59 18:59 Intake Total 700 1200 Output Total 400 Balance 700 800 Intake: Intake, IV Titration 100 200 Amount Ampicillin-Sulbactam 3 gm 100 200 In Sodium Chloride 0.9% 100 ml @ 200 mls/hr IVPB Q6HR [facility] Rx#:[id number] Oral 600 1000 Output: Urine 400 Stool 0 Other: Voiding Method Urinal Urinal Urinal # Voids 3 4 - Exam General: non toxic, no distress, appears at stated age Derm: warm and dry with necrotic diabetic ulcer right lateral distal region beneath fifth digit of right foot extending upwards into the lateral surface with significant erythema extending upward towards dorsal surface of foot and anterior lower leg. Head: atraumatic, normocephalic, symmetric Eyes: EOMI, no lid lag, anicteric sclera Mouth: no lip lesion, mucus membranes moist Cardiovascular: S1S2 reg, no murmur, positive posterior tibial pulse bilateral, Lungs: CTA bilateral, no rhonchi, no rales , no accessory muscle use Abdominal: soft, nontender to palpation, no guarding, no appreciable organomegaly Ext: no gross muscle atrophy, no edema, no contractures Neuro: CN II-XI grossly intact, no focal neuro deficits Psych: Alert, oriented, appropriate affect - Labs CBC & Chem 7: 08/13/20 04:43 08/15/20 05:58 Labs: Abnormal Lab Results - Last 24 Hours (Table) 08/14/20 08/14/20 08/15/20 Range/Units 17:08 20:27 07:07 POC Glucose (mg/dL) 192 H 208 H 174 H (75-99) mg/dL 08/15/20 Range/Units 11:24 POC Glucose (mg/dL) 241 H (75-99) mg/dL Microbiology - Last 24 Hours (Table) 08/13/20 19:17 Gram Stain - Preliminary Toe - Right Fifth Wound Culture - Preliminary 08/11/20 13:43 Blood Culture - Preliminary Blood No Growth after 72 hours 08/11/20 13:58 Blood Culture - Preliminary Blood No Growth after 72 hours 08/11/20 14:55 Gram Stain - Final Foot - Right Wound Culture - Final Enterococcus faecalis Tawnya sp,not albicans/galbr Assessment and Plan Plan: Diabetic ulcer to right foot with surrounding cellulitis s/p amputation of the fifth toe along with the infected callus and I&D on the plantar aspect of the foot -X-ray right foot reported findings showing a deformity of the head and neck region of the proximal phalanx of the great toe laterally possibly reflecting traumatic change however osteomyelitis is difficult to exclude. -MRI completed last night revealing complex masses at the plantar aspect of the midfoot and level of the base of the second metatarsal possibly representing an abscess or hematoma accompanied by diffuse soft tissue swelling of the forefoot, there were no definite signs of osteomyelitis reported. -IV antibiotics: Continue unasyn -Wound culture growing enterococcus faecalis sensitive to penicillin. Gamao d/marielos by ID 08/15. -Consult wound care. -Infectious disease and vascular following. -Pain management and symptomatic treatment. Diabetes mellitus type 2 -Hold oral glycemic medications at this time -Increase lantus to 10 units q hs -Continue sliding scale -Hemoglobin A1c 8.2 -Heart healthy carb consistent diet. Hypertension -Monitor vital signs and continue daily medication management with lisinopril and amlodipine. Hyperlipidemia -Continue daily medication regimen with atorvastatin 20 mg nightly. -Heart healthy carb consistent diet. CODE STATUS: full code DVT prophylaxis: heparin Discussed with: patient and RN Anticipated discharge date: clinical course to determine Anticipated discharge place: home with possible homecare A total of 45 minutes was spent on the care of this complex patient more than 50% of the time was spent in counseling and care coordination
--- NOTE | 2020-08-15 16:58 | PN ---
PROGRESS NOTE DATE OF SERVICE: 08/15/2020 REASON FOR FOLLOWUP: Right diabetic foot infection. INTERVAL HISTORY: The patient is currently afebrile. The patient is breathing comfortably. Patient denies having any chest pain, shortness of breath or cough. No abdominal pain or pain to the right foot. PHYSICAL EXAMINATION: Blood pressure 150/80 with a pulse of 87, temperature 97.9. He is 97% on room air. General description: The patient is an elderly male up in the bed in no distress. Respiratory system: Unlabored breathing, clear to auscultation anteriorly. Heart S1, S2. Regular rate and rhythm. Abdomen soft, no tenderness. Right foot is currently dressed up. No obvious drainage on the dressing. LABS: Creatinine 0.8. DIAGNOSTIC IMPRESSION AND PLAN: Patient with right diabetic foot infection with underlying abscess, status post amputation to the right 5th toe, superficial culture with Enterococcus faecalis. Oral cultures are pending. Patient to continue with Unasyn. The patient will need a PICC line for outpatient antibiotic therapy. Continue supportive care. MMODL / IJN: [id number] /
[2020-08-15 17:11] LABS: Glucose,Whole Blood 330 mg/dL (75-99)
[2020-08-15 20:07] LABS: Glucose,Whole Blood 246 mg/dL (75-99)
[2020-08-15] MEDS ORDERED: INSULIN DETEMIR (LEVEMIR) 100 UNIT/ML SYR SQ SCH (21:00)
[2020-08-15] MEDS: ATORVASTATIN 20 MG TAB PO SCH (21:48)
[2020-08-15] MEDS: LATANOPROST 0.005% OPHTH DROPS 2.5 ML BTL BOTH EYES SCH (21:49)
[2020-08-16] MEDS: HYDROcodone/APAP 5-325MG 1 EACH TAB PO PRN ×2 (01:45→05:47)
[2020-08-16] MEDS: AMPICILLIN-SULBACTAM 3 GM in SODIUM CHLORIDE 0.9% 100 ML IVPB SCH ×4 (05:47→23:06)
[2020-08-16 07:03] LABS: Glucose,Whole Blood 216 mg/dL (75-99)
[2020-08-16] MEDS: REPAGLINIDE 2 MG PO SCH ×3 (07:37→17:51)
[2020-08-16] MEDS: amLODIPine 10 MG TAB PO SCH (07:48)
[2020-08-16] MEDS: INSULIN ASPART (NovoLOG) 100 UNIT/ML VIAL SQ SCH ×4 (07:48→23:30)
[2020-08-16] MEDS: lisinopriL 20 MG TAB PO SCH (07:48)
[2020-08-16] MEDS: MAGNESIUM OXIDE 400 MG TAB PO SCH ×2 (07:48→22:09)
[2020-08-16] MEDS: HEPARIN SODIUM,PORCINE/PF 5,000 UNIT/0.5 ML SYRINGE SQ SCH ×4 (07:48→23:06)
[2020-08-16] MEDS: PSYLLIUM HUSK 100% 6 GM PACKET PO SCH (07:48)
[2020-08-16] MEDS: COLLAGENASE 250 UNIT/GM OINTMENT 30 GM TUBE TOPICAL SCH (07:49)
[2020-08-16 12:05] LABS: Glucose,Whole Blood 294 mg/dL (75-99)
[2020-08-16] MEDS: HYDROmorphone 0.5 MG/0.5 ML SYRINGE IVP PRN ×3 (12:49→22:10)
--- NOTE | 2020-08-16 12:56 | P.PN ---
Progress Note - Text 65-year-old white male, history of diabetes peripheral vascular disease he patient had a infected gangrene of the right foot involving the fifth toe and plantar dorsal aspect of the foot patient went for extensive debridement and amputation today we have changed her dressing base of the wound is granulating we've been using Santyl cream and wrap patient will need therapy patient is under care of infectious disease
--- NOTE | 2020-08-16 14:05 | IR ---
EXAMINATION TYPE: IR cvc insert >=5 years DATE OF EXAM: 08/16/2020 COMPARISON: NONE CLINICAL HISTORY: Infection Needs long-term intravenous access for antibiotics. PROCEDURE: Hand hygiene obtained with soap and water and alcohol-based hand rub. After informed consent, the skin overlying the left basilic vein was localized with ultrasound and no nargis to be compressible and patent. An ultrasound image was obtained and submitted on the patient's c oleary. The overlying skin was prepped and draped and Lidocaine was used for local anesthesia. A skin sánchez was made with a scalpel. Access was gained to the vein under ultrasound guidance with a 21 gau ge needle and a 0.018 inch wire was advanced. Access site was dilated with Peel-Away sheath and cath eter tailored to the appropriate length and advanced such that the distal tip is at the cavoatrial ju nction. Spot image was obtained verifying placement. Catheter was fixed to the skin and a sterile d ressing was placed following hemostasis. Catheter was aspirated and flushed with saline. Patient wa s discharged in stable condition without complication. Maximal barrier technique is utilized. Ultras ound image is documented on the chart. Ultrasound used with sterile technique. Fluoro time and fluoroscopic images submitted to document procedure: 22 intraoperative images, 0.3 mi nutes fluoroscopy time IMPRESSION: STATUS POST ULTRASOUND AND FLUOROSCOPIC GUIDED PICC LINE PLACEMENT, READY FOR USE. THIS PROCEDURE WAS PERFORMED BY THE UNDERSIGNED.
--- NOTE | 2020-08-16 14:58 | PN ---
PROGRESS NOTE DATE OF SERVICE: 08/16/2020 REASON FOR FOLLOWUP: Right diabetic foot infection with 5th toe gangrene, status post amputation. INTERVAL HISTORY: The patient is currently afebrile. The patient is breathing comfortably. Patient denies having any chest pain, shortness of breath or cough. No abdominal pain or pain to the right foot wound area. PHYSICAL EXAMINATION: Blood pressure 162/76, pulse of 78, temperature is 97.9, he is 96% on room air. GENERAL DESCRIPTION: An elderly male up in the bed in no distress. RESPIRATORY SYSTEM: Unlabored breathing, clear to auscultation anteriorly. HEART: S1, S2. Regular rate and rhythm. ABDOMEN: Soft, no tenderness. LABS: No new labs have been obtained today. The patient cultures initially were Enterococcus faecalis and . The OR culture showing coagulase-negative Staph. Anaerobic cultures currently pending. DIAGNOSTIC IMPRESSION AND PLAN: Patient with right 5th toe gangrene with right foot abscess status post drainage. More likely Enterococcus faecalis. The patient has clinically responded to Unasyn. Will recommend at least a 3-4 week course of IV Unasyn 3 grams q.6 hours. Local wound care with wound VAC. The patient will have a weekly CBC, BMP, sedimentation rate and CRP and advised to follow up [facility] next week. The patient has slight necrotic changes around the wound for which the patient will be evaluated by the Vascular Surgeon. BOO / HORTENCIA: [id number] /
--- NOTE | 2020-08-16 16:58 | P.PN ---
Subjective Progress Note Date: 08/16/20 No new complaints today. Pt rec'd PICC line today. Holding patient one more day for final surgical eval regarding need for wound vac or not. Objective - Vital Signs Vital signs: Vital Signs Temp 97.9 F 08/16/20 11:56 Pulse 78 08/16/20 11:56 Resp 16 08/16/20 11:56 BP 162/76 08/16/20 11:56 Pulse Ox 96 08/16/20 11:56 Intake & Output 08/15/20 08/16/20 08/16/20 18:59 06:59 18:59 Intake Total 700 790 Output Total 600 Balance 700 190 Weight 108.862 kg Intake: Intake, IV Titration 100 200 Amount Ampicillin-Sulbactam 3 gm 100 200 In Sodium Chloride 0.9% 100 ml @ 200 mls/hr IVPB Q6HR [facility] Rx#:[id number] Oral 600 590 Output: Urine 600 Other: Voiding Method Urinal Urinal Urinal # Voids 2 # Bowel Movements 1 2 - Labs CBC & Chem 7: 08/13/20 04:43 08/15/20 05:58 Labs: Abnormal Lab Results - Last 24 Hours (Table) 08/15/20 08/15/20 08/16/20 Range/Units 17:09 20:05 07:01 POC Glucose (mg/dL) 330 H 246 H 216 H (75-99) mg/dL 08/16/20 Range/Units 11:59 POC Glucose (mg/dL) 294 H (75-99) mg/dL Microbiology - Last 24 Hours (Table) 08/11/20 13:58 Blood Culture - Preliminary Blood No Growth after 120 hours 08/11/20 13:43 Blood Culture - Preliminary Blood No Growth after 120 hours 08/13/20 19:17 Gram Stain - Preliminary Toe - Right Fifth Tissue Culture - Preliminary Coagulase Negative Staph Yeast species 08/13/20 19:17 Gram Stain - Final Toe - Right Fifth Wound Culture - Final Assessment and Plan Assessment: Diabetic ulcer to right foot with surrounding cellulitis s/p amputation of the fifth toe along with the infected callus and I&D on the plantar aspect of the foot -X-ray right foot reported findings showing a deformity of the head and neck region of the proximal phalanx of the great toe laterally possibly reflecting traumatic change however osteomyelitis is difficult to exclude. -MRI completed last night revealing complex masses at the plantar aspect of the midfoot and level of the base of the second metatarsal possibly representing an abscess or hematoma accompanied by diffuse soft tissue swelling of the forefoot, there were no definite signs of osteomyelitis reported. -IV antibiotics: Continue unasyn -Wound culture growing enterococcus faecalis sensitive to penicillin. Adriana albrecht by ID 08/15. -Consult wound care. -Infectious disease and vascular following. -Pain management and symptomatic treatment. Diabetes mellitus type 2 -Hold oral glycemic medications at this time -Increase lantus to 10 units q hs -Continue sliding scale -Hemoglobin A1c 8.2 -Heart healthy carb consistent diet. Hypertension -Monitor vital signs and continue daily medication management with lisinopril and amlodipine. Hyperlipidemia -Continue daily medication regimen with atorvastatin 20 mg nightly. -Heart healthy carb consistent diet. CODE STATUS: full code DVT prophylaxis: heparin Discussed with: patient and RN Anticipated discharge date: clinical course to determine Anticipated discharge place: home with possible homecare
[2020-08-16 17:20] LABS: Glucose,Whole Blood 429 mg/dL (75-99)
[2020-08-16] MEDS: INSULIN DETEMIR (LEVEMIR) 100 UNIT/ML SYR SQ SCH (18:49)
[2020-08-16 20:14] LABS: Glucose,Whole Blood 392 mg/dL (75-99)
[2020-08-16] MEDS: ATORVASTATIN 20 MG TAB PO SCH (22:08)
[2020-08-16] MEDS: LATANOPROST 0.005% OPHTH DROPS 2.5 ML BTL BOTH EYES SCH (22:09)
[2020-08-17] MEDS: HYDROmorphone 0.5 MG/0.5 ML SYRINGE IVP PRN ×3 (04:45→21:59)
[2020-08-17] MEDS: AMPICILLIN-SULBACTAM 3 GM in SODIUM CHLORIDE 0.9% 100 ML IVPB SCH ×3 (05:22→17:44)
[2020-08-17 08:19] LABS: Glucose,Whole Blood 220 mg/dL (75-99)
[2020-08-17] MEDS: REPAGLINIDE 2 MG PO SCH ×3 (08:22→17:40)
[2020-08-17] MEDS: PSYLLIUM HUSK 100% 6 GM PACKET PO SCH (08:22)
[2020-08-17] MEDS: INSULIN ASPART (NovoLOG) 100 UNIT/ML VIAL SQ SCH ×4 (08:28→21:56)
[2020-08-17] MEDS: COLLAGENASE 250 UNIT/GM OINTMENT 30 GM TUBE TOPICAL SCH (08:28)
[2020-08-17] MEDS: PATIENT'S OWN (Dapagliflozin Propanediol [Farxiga] 10 MG Tablet) PO SCH (08:28)
[2020-08-17] MEDS: MAGNESIUM OXIDE 400 MG TAB PO SCH ×2 (08:28→21:44)
[2020-08-17] MEDS: lisinopriL 20 MG TAB PO SCH (08:28)
[2020-08-17] MEDS: amLODIPine 10 MG TAB PO SCH (08:28)
[2020-08-17] MEDS: HEPARIN SODIUM,PORCINE/PF 5,000 UNIT/0.5 ML SYRINGE SQ SCH ×2 (08:28→17:43)
[2020-08-17 12:15] LABS: Glucose,Whole Blood 215 mg/dL (75-99)
--- NOTE | 2020-08-17 14:54 | P.PN ---
Progress Note - Text 65-year-old diabetic male, patient came with a wet gangrene of the right foot involving the fifth toe and dorsal plantar aspect of aspect of the foot patient went with the ray amputation and extensive debridement of the tendon and developed less tissue. Patient is under care of infectious disease we've been changing the wound with Santyl cream which be changed daily with the Sentell cream. Patient has a poor circulation in the both leg PTDP by the Doppler femorals are 1+ patient had a PICC line today and is managing the IV antibiotic. Patient will be seen in my office on Sunday and then we will arrange appointment to the wound clinic for VAC therapy and local care. Patient going home today follow-up in office on Sunday nonweightbearing at on the right foot
--- NOTE | 2020-08-17 15:00 | PN ---
PROGRESS NOTE DATE OF SERVICE: 08/17/2020 REASON FOR FOLLOWUP: Right fifth toe gangrene and abscess. INTERVAL HISTORY: The patient is currently afebrile. The patient is breathing comfortably. Patient denies having any chest pain, shortness of breath or cough. No nausea. No vomiting. No abdominal pain or pain to the right foot. PHYSICAL EXAMINATION: Blood pressure 143/77, pulse of 78, temperature 98.2. He is 98% on room air. General description is an elderly male up in the bed in no distress. RESPIRATORY SYSTEM: Unlabored breathing, clear to auscultation anteriorly. HEART: S1, S2. Regular rate and rhythm. ABDOMEN: Soft, no tenderness. LABS: Wound culture now showing an oxacillin sensitive Staph epi along with anaerobic Gram- negative bacilli and Enterococcus faecalis. DIAGNOSTIC IMPRESSION AND PLAN: Patient with right fifth toe pain and abscess status post amputation of fifth toe. Culture with multiple pathogens covered with Unasyn. Plan for 4 weeks of Unasyn. Local wound care with Santyl and a close outpatient followup. Questions and concerns were answered. MMODL / IJN: [id number] /
--- NOTE | 2020-08-17 16:37 | P.PN ---
Subjective Progress Note Date: 08/17/20 No new complaints today. Pt rec'd PICC line 08/16. Holding patient one more day due to patient not able to rec home abx services til tomorrow PM Objective - Vital Signs Vital signs: Vital Signs Temp 97.9 F 08/17/20 13:00 Pulse 76 08/17/20 13:00 Resp 18 08/17/20 13:00 BP 150/81 08/17/20 13:00 Pulse Ox 96 08/17/20 13:00 Intake & Output 08/16/20 08/17/20 08/17/20 18:59 06:59 18:59 Intake Total 800 Output Total 1300 0 Balance -1300 800 Weight 108.862 kg Intake: Intake, IV Titration 200 Amount Ampicillin-Sulbactam 3 gm 200 In Sodium Chloride 0.9% 100 ml @ 200 mls/hr IVPB Q6HR [facility] Rx#:[id number] Oral 600 Output: Urine 1300 Stool 0 Other: Voiding Method Urinal Toilet Toilet Urinal Urinal # Voids 2 # Bowel Movements 2 1 - Labs CBC & Chem 7: 08/13/20 04:43 08/15/20 05:58 Labs: Abnormal Lab Results - Last 24 Hours (Table) 08/16/20 08/16/20 08/17/20 Range/Units 17:12 20:12 07:47 POC Glucose (mg/dL) 429 H 392 H 220 H (75-99) mg/dL 08/17/20 Range/Units 12:14 POC Glucose (mg/dL) 215 H (75-99) mg/dL Microbiology - Last 24 Hours (Table) 08/13/20 19:17 Gram Stain - Preliminary Toe - Right Fifth Tissue Culture - Preliminary Staphylococcus epidermidis Tawnya species, not albicans 08/13/20 19:17 Anaerobic Culture - Final Toe - Right Fifth Anaerobic Gm Negative Bacilli 08/13/20 19:17 Anaerobic Culture - Final Toe - Right Fifth Anaerobic Gm Negative Bacilli 08/11/20 13:58 Blood Culture - Preliminary Blood No Growth after 120 hours 08/11/20 13:43 Blood Culture - Preliminary Blood No Growth after 120 hours Assessment and Plan Assessment: Diabetic ulcer to right foot with surrounding cellulitis s/p amputation of the fifth toe along with the infected callus and I&D on the plantar aspect of the foot -X-ray right foot reported findings showing a deformity of the head and neck region of the proximal phalanx of the great toe laterally possibly reflecting traumatic change however osteomyelitis is difficult to exclude. -MRI completed last night revealing complex masses at the plantar aspect of the midfoot and level of the base of the second metatarsal possibly representing an abscess or hematoma accompanied by diffuse soft tissue swelling of the forefoot, there were no definite signs of osteomyelitis reported. -IV antibiotics: Continue unasyn -Wound culture growing enterococcus faecalis sensitive to penicillin. Adriana farmer/marielos by ID 08/15. -Consult wound care. -Infectious disease and vascular following. -Pain management and symptomatic treatment. Diabetes mellitus type 2 -Hold oral glycemic medications at this time -Increase lantus to 10 units q hs -Continue sliding scale -Hemoglobin A1c 8.2 -Heart healthy carb consistent diet. Hypertension -Monitor vital signs and continue daily medication management with lisinopril and amlodipine. Hyperlipidemia -Continue daily medication regimen with atorvastatin 20 mg nightly. -Heart healthy carb consistent diet. CODE STATUS: full code DVT prophylaxis: heparin Discussed with: patient and RN Anticipated discharge date: clinical course to determine Anticipated discharge place: home with possible homecare
[2020-08-17 17:41] LABS: Glucose,Whole Blood 261 mg/dL (75-99)
[2020-08-17 20:03] LABS: Glucose,Whole Blood 276 mg/dL (75-99)
[2020-08-17] MEDS ORDERED: INSULIN ASPART (NovoLOG) 100 UNIT/ML VIAL SQ SCH (21:38)
[2020-08-17] MEDS: ATORVASTATIN 20 MG TAB PO SCH (21:44)
[2020-08-17] MEDS: INSULIN DETEMIR (LEVEMIR) 100 UNIT/ML SYR SQ SCH (21:46)
[2020-08-17] MEDS: LATANOPROST 0.005% OPHTH DROPS 2.5 ML BTL BOTH EYES SCH (21:47)
[2020-08-18] MEDS: AMPICILLIN-SULBACTAM 3 GM in SODIUM CHLORIDE 0.9% 100 ML IVPB SCH ×3 (00:08→11:59)
[2020-08-18] MEDS: HYDROmorphone 0.5 MG/0.5 ML SYRINGE IVP PRN (02:36)
[2020-08-18] MEDS: HEPARIN SODIUM,PORCINE/PF 5,000 UNIT/0.5 ML SYRINGE SQ SCH ×2 (02:37→07:31)
[2020-08-18 05:11] VITALS: TEMP 98
[2020-08-18 07:13] LABS: Glucose,Whole Blood 194 mg/dL (75-99)
[2020-08-18] MEDS: HYDROcodone/APAP 5-325MG 1 EACH TAB PO PRN (07:31)
[2020-08-18] MEDS: MAGNESIUM OXIDE 400 MG TAB PO SCH (07:31)
[2020-08-18] MEDS: lisinopriL 20 MG TAB PO SCH (07:31)
[2020-08-18] MEDS: amLODIPine 10 MG TAB PO SCH (07:31)
[2020-08-18] MEDS: INSULIN ASPART (NovoLOG) 100 UNIT/ML VIAL SQ SCH ×2 (07:32→12:04)
[2020-08-18] MEDS: COLLAGENASE 250 UNIT/GM OINTMENT 30 GM TUBE TOPICAL SCH (07:33)
[2020-08-18] MEDS: PSYLLIUM HUSK 100% 6 GM PACKET PO SCH (07:33)
[2020-08-18] MEDS: REPAGLINIDE 2 MG PO SCH ×2 (07:47→13:51)
[2020-08-18] MEDS: PATIENT'S OWN (Dapagliflozin Propanediol [Farxiga] 10 MG Tablet) PO SCH (07:48)
--- NOTE | 2020-08-18 09:15 | P.ARTDOP ---
Arterial Doppler LOWER EXTREMITY ARTERIAL DOPPLER: DATE OF SERVICE: 08/13/2020 Reason for study: Diabetic foot ulcer right. Doppler waveforms: Multiphasic at the left femoral and atypical below. Multiphasic at the right femoral, atypical at the popliteal and posterior tibial, monophasic at the digital and dorsalis pedis.. Pulse volume recording: []. Pressure gradients: Gradients bilaterally above the thigh and additionally across the knee on the left.. Ankle-brachial indices: 0.43 on the right and 0.57 on the left. Toe brachial indices: [] on the right, [] on the left Impression: Severe right fem-pop disease. Moderate left fem-pop disease. Vascular especially consultation recommended..
[2020-08-18 11:36] LABS: Glucose,Whole Blood 337 mg/dL (75-99)
[2020-08-18 11:41] VITALS: BP 124/66; PULSE 68; RESP 18
--- NOTE | 2020-08-18 13:45 | PN ---
PROGRESS NOTE DATE OF SERVICE: 08/18/2020 REASON FOR FOLLOWUP: Right diabetic foot infection with gangrenous fifth toe. INTERVAL HISTORY: The patient is currently afebrile. Patient is breathing comfortably. The patient denies having any chest pain, shortness of breath, cough. No abdominal pain, or any worsening pain to the right foot. PHYSICAL EXAMINATION: Blood pressure 124/66, pulse of 68, temperature 98. He is 99% on room air. General description is an elderly male up in the bed in no distress. RESPIRATORY SYSTEM: Unlabored breathing, clear to auscultation anteriorly. HEART: S1, S2. Regular rate and rhythm. ABDOMEN: Soft, no tenderness. Right foot is currently dressed up. No obvious drainage on the dressing. LABS: No new labs have been obtained today. DIAGNOSTIC IMPRESSION AND PLAN: Patient with right fifth toe gangrene and abscess of the foot, status post extensive debridement. Cultures show multiple pathogen including Bacteroides, anaerobes, Staph epi, Enterococcus faecalis, covered with Unasyn at this point. Plan to transition to daptomycin 6 mg/kg which is count about 600 mg along with oral Flagyl. Local wound care with Santyl and close outpatient followup. MMODL / IJN: [id number] /
--- NOTE | 2020-08-19 23:55 | P.DS ---
Providers Date of admission: 08/11/20 15:21 Expected date of discharge: 08/18/20 Attending physician: Thomas Hameed Consults: 08/11/20 15:31 Consult Physician Urgent Consulting Provider: Erendira Duffy Consult Reason/Comments: Diabetic foot ulcer Do you want consulting provider notified?: Yes 08/13/20 11:48 Consult Physician Routine Consulting Provider: Thien Dolan Consult Reason/Comments: Foot abscess Do you want consulting provider notified?: Yes Primary care physician: Gregor Lynch MD Hospital Course: Hospital course Patient is a 65-year-old male with a past medical history of type II eye-shubbxo-rfrsgmset diabetes mellitus, hypertension, hyperlipidemia, and daily cannabis use. He presented to the hospital as directed by his PCP for evaluation of a wound to his right foot. patient reports that on 07/31/20 he cut the bottom of his right foot on some [place] resulting in an open wound. Patient reports he did not realize how bad the injury was until [place] next [place] and felt the burning to the wound on his right foot. Patient states that over the past 3-4 days this wound became significantly larger and became accompanied by surrounding redness and drainage. Patient reports he began noticing the redness traveling up his foot yesterday and today noted the redness traveling up his leg since he went to the PCP who then sent him to the emergency department. Patient was seen and fully evaluated in the emergency department. X-ray right foot reported findings showing a deformity of the head and neck region of the proximal phalanx of the great toe laterally possibly reflecting traumatic change however osteomyelitis is difficult to exclude.leukocytosis with WBC count of 13.1 with a left shift and CRP elevated at 24.5. Patient started on IV antibiotics vancomycin and Zosyn. consults to infectious disease and podiatry for further evaluation. patient reports poorly controlled diabetes and denies monitoring daily blood glucose levels. He denies having any recent fever, chills, headache, lightheadedness, dizziness, chest pain or palpitations, shortness of breath, abdominal pain, nausea, vomiting, or experiencing any numbness/tingling/weakness in his extremities. Patient was then seen by Dr. Smith from vascular. Patient underwent reamputation and extensive debridement of the tendon and devitalized tissue.. Cultures positive for Enterococcus faecalis. Patient is put on IV Unasyn. PICC line placed. Today: Sitting up on the bed. Oral intake good. Pain control. Home antibiotics and been arranged. IV Unasyn 3 g every 6 hours until below 112 was. Local wound care with [place]. Consultation: Dr. Duffy from ID Dr. Smith from vascular surgery On examination: VITAL SIGNS: 98, 68, 18, 1 24 x 16 6, 99% room air GENERAL APPEARANCE: Sitting at the edge of the bed, comfortable HEENT: Normal external appearance of nose and ear. Oral cavity normal EYES: Pupils equal. Conjunctiva normal. NECK: JVD not raised. Mass not palpable. RESPIRATORY: Respiratory effort normal. Lungs clear to auscultation. CARDIOVASCULAR: First and second sounds normal. No edema. ABDOMEN: Soft. Liver and spleen not palpable. No tenderness. No mass palpable. PSYCHIATRY: Alert and oriented x3. Mood and affect normal. EXTREMITY: Right foot and a dressing Investigations: Creatinine 0.71 hemoglobin 13.5 Wound cultures multiple organisms including bacteroids fragilis, Staphylococcus epidermidis, Enterococcus faecalis Blood cultures negative Assessment and plan: Diabetic ulcer to right foot with surrounding cellulitis s/p amputation of the fifth toe along with the infected callus and I&D on the plantar aspect of the foot -X-ray right foot reported findings showing a deformity of the head and neck region of the proximal phalanx of the great toe laterally possibly reflecting traumatic change however osteomyelitis is difficult to exclude. -MRI -revealing complex masses at the plantar aspect of the midfoot and level of the base of the second metatarsal possibly representing an abscess or hematoma accompanied by diffuse soft tissue swelling of the forefoot, there were no definite signs of osteomyelitis reported. -IV antibiotics: Continue unasyn -Wound culture growing enterococcus faecalis sensitive to penicillin. Adriana d/ marielos by ID 08/15. Diabetes mellitus type 2 Continue home medications. Essential Hypertension -Monitor vital signs and continue daily medication management with lisinopril and amlodipine. Hyperlipidemia -Continue daily medication regimen with atorvastatin 20 mg nightly. -Heart healthy carb consistent diet Disposition: Home. Plan - Discharge Summary New Discharge Prescriptions: New Ampicillin-Sulbactam [Unasyn] 3 gm IVPB Q6HR #112 vial Psyllium Husk 100% [Metamucil Packet] 6 gm PO DAILY #30 packet HYDROcodone/APAP 5-325MG [[place] 5-325] 1 each PO Q4HR PRN #18 tab PRN Reason: Moderate Pain Acetaminophen Tab [Tylenol] 650 mg PO Q6HR PRN tab PRN Reason: Mild Pain Or Fever > 100.5 Collagenase [Santyl] 1 applic TOPICAL DAILY #30 applic Continue Multivitamins, Thera [Multivitamin (formulary)] 1 tab PO DAILY metFORMIN HCL 1,000 mg PO BID glipiZIDE [Glucotrol] 10 mg PO BID [place]-3 Fatty Acids/Fish Oil [Fish Oil 1,000 mg Softgel] 1 cap PO DAILY Cholecalciferol [Vitamin D3 (25 Mcg = 1000 Iu)] 3,000 unit PO DAILY Atorvastatin [Lipitor] 20 mg PO HS Magnesium Oxide [Mag-Ox] 250 mg PO HS amLODIPine BESYLATE [Norvasc] 10 mg PO DAILY Aspirin 325 mg PO DAILY Travoprost [Travatan Z 0.004%] 1 drop BOTH EYES HS Dapagliflozin Propanediol [Farxiga] 10 mg PO DAILY lisinopriL [Zestril] 20 mg PO DAILY Magnesium Oxide 400 mg PO BID Repaglinide [Prandin] 2 mg PO TID Discontinued Amoxic-Pot Clav 875-125Mg [Augmentin 875-125] 1 tab PO Q12HR Discharge Medication List Atorvastatin [Lipitor] 20 mg PO HS 10/04/17 [History] Cholecalciferol [Vitamin D3 (25 Mcg = 1000 Iu)] 3,000 unit PO DAILY 10/04/17 [History] Magnesium Oxide [Mag-Ox] 250 mg PO HS 10/04/17 [History] Multivitamins, Thera [Multivitamin (formulary)] 1 tab PO DAILY 10/04/17 [History] [place]-3 Fatty Acids/Fish Oil [Fish Oil 1,000 mg Softgel] 1 cap PO DAILY 10/04/17 [History] amLODIPine BESYLATE [Norvasc] 10 mg PO DAILY 10/04/17 [History] glipiZIDE [Glucotrol] 10 mg PO BID 10/04/17 [History] metFORMIN HCL 1,000 mg PO BID 10/04/17 [History] Aspirin 325 mg PO DAILY 03/10/19 [History] Travoprost [Travatan Z 0.004%] 1 drop BOTH EYES HS 03/10/19 [History] Dapagliflozin Propanediol [Farxiga] 10 mg PO DAILY 04/21/21 [History] Magnesium Oxide 400 mg PO BID 08/11/20 [History] Repaglinide [Prandin] 2 mg PO TID 08/11/20 [History] lisinopriL [Zestril] 20 mg PO DAILY 08/11/20 [History] Ampicillin-Sulbactam [Unasyn] 3 gm IVPB Q6HR #112 vial 08/16/20 [Rx] Acetaminophen Tab [Tylenol] 650 mg PO Q6HR PRN tab 08/17/20 [Rx] Collagenase [Santyl] 1 applic TOPICAL DAILY #30 applic 08/17/20 [Rx] HYDROcodone/APAP 5-325MG [[place] 5-325] 1 each PO Q4HR PRN #18 tab 08/17/20 [Rx] Psyllium Husk 100% [Metamucil Packet] 6 gm PO DAILY #30 packet 08/17/20 [Rx] Follow up Appointment(s)/Referral(s): [facility], [NON-STAFF] - 1 Week MID,Infusion [NON-STAFF] - 1 Week Gregor Lynch MD [Primary Care Provider] - 08/20/20 10:30 am Thien Dolan MD [STAFF PHYSICIAN] - 08/20/20 11:00 am Erendira Duffy MD [STAFF PHYSICIAN] - 08/31/20 2:15 pm Ambulatory/Diagnostic Orders: Basic Metabolic Panel [LAB.AMB] Location: None Selected C Reactive Protein [LAB.AMB] Location: None Selected Complete Blood Count w/diff [LAB.AMB] Location: None Selected Erythrocyte Sedimentation Rate [LAB.AMB] Location: None Selected Patient Instructions/Handouts: Hydrocodone/Acetaminophen (By mouth), Laxative, Bulk-forming (By mouth), Ampicillin/Sulbactam (By injection), Collagenase (On the skin), Toe Amputation (DC) Activity/Diet/Wound Care/Special Instructions: Patient is to follow-up in the wound care center, both with Dr. Dolan and Dr Duffy, call [phone] to make an appointment Discharge Disposition: HOME WITH HOME HEALTH SERVICES
== END 2020-08-18 14:19 | disposition home health service (06) | DRG 256 ==
LOC: EC 12:59 → 5NMEDONC 15:21
PROVIDERS: ADMIT Hospitalist; ATTEND Hospitalist
PROC: 0QBN0ZZ Excision of Right Metatarsal, Open Approach (ICD-10-PCS; 2020-08-13)
PROC: 0Y6X0Z0 Detachment at Right 5th Toe, Complete, Open Approach (ICD-10-PCS; principal; 2020-08-13 11:45)
PROC: 02HV33Z Insertion of Infusion Device into Superior Vena Cava, Percutaneous Approach (ICD-10-PCS; 2020-08-16)
DX: E11.52 Type 2 diabetes mellitus with diabetic peripheral angiopathy with gangrene (principal); L03.115 Cellulitis of right lower limb; L02.611 Cutaneous abscess of right foot; E11.621 Type 2 diabetes mellitus with foot ulcer; L97.513 Non-pressure chronic ulcer of other part of right foot with necrosis of muscle; E11.628 Type 2 diabetes mellitus with other skin complications; E11.39 Type 2 diabetes mellitus with other diabetic ophthalmic complication; E11.42 Type 2 diabetes mellitus with diabetic polyneuropathy; E11.65 Type 2 diabetes mellitus with hyperglycemia; Z20.822 Contact with and (suspected) exposure to COVID-19; B95.2 Enterococcus as the cause of diseases classified elsewhere; H42 Glaucoma in diseases classified elsewhere; I10 Essential (primary) hypertension; E78.5 Hyperlipidemia, unspecified; F17.200 Nicotine dependence, unspecified, uncomplicated; Z88.8 Allergy status to other drugs, medicaments and biological substances; Z79.899 Other long term (current) drug therapy; Z79.84 Long term (current) use of oral hypoglycemic drugs; Z79.82 Long term (current) use of aspirin; Z82.3 Family history of stroke; Z82.49 Family history of ischemic heart disease and other diseases of the circulatory system; I50.9 Heart failure, unspecified; I11.0 Hypertensive heart disease with heart failure; S91.311A Laceration without foreign body, right foot, initial encounter; W45.8XXA Other foreign body or object entering through skin, initial encounter
CPT/HCPCS: 36415; 36573; 80048; 80053; 80202; 82565; 83036; 83605; 85025; 85027; 85610; 85730; 86140; 87040; 87070; 87075; 87077; 87186; 87205; 87635; 93923; 96365; 99285

== ENCOUNTER 2024-01-10 13:31 | Emergency (ER) | payer MEDICARE ==
[2024-01-10 13:37] VITALS: RESP 18
--- NOTE | 2024-01-10 14:09 | ED ---
Male Urogenital HPI - General Chief complaint: Urogenital Stated complaint: blood in urine/diabetic Time Seen by Provider: 01/10/24 13:49 Source: patient, RN notes reviewed Mode of arrival: ambulatory Limitations: no limitations - History of Present Illness Initial comments: 68-year-old male presents emergency department chief complaint of a refractory u rinary tract infection. Patient states that he has been experiencing hematuria intermittently over the past month. Patient was evaluated at [facility] approximately [address] imaging of the abdomen pelvis was negative and patient was treated for urinary tract infection. Patient has been taking Bactrim since last Sunday however he is still experiencing hematuria. Denies dysuria, increase in urinary frequency and urgency, abdominal pain or flank pain. - Related Data Home Medications Medication Instructions Recorded Confirmed Atorvastatin [Lipitor] 20 mg PO HS 10/04/17 08/11/20 Cholecalciferol [Vitamin D3 (25 3,000 unit PO DAILY 10/04/17 08/11/20 Mcg = 1000 Iu)] Magnesium Oxide [Mag-Ox] 250 mg PO HS 10/04/17 08/11/20 Multivitamins, Thera [Multivitamin 1 tab PO DAILY 10/04/17 08/11/20 (formulary)] [place]-3 Fatty Acids/Fish Oil [Fish 1 cap PO DAILY 10/04/17 08/11/20 Oil 1,000 mg Softgel] amLODIPine BESYLATE [Norvasc] 10 mg PO DAILY 10/04/17 08/11/20 glipiZIDE [Glucotrol] 10 mg PO BID 10/04/17 08/11/20 metFORMIN HCL [Glucophage] 1,000 mg PO BID 10/04/17 08/11/20 Aspirin 325 mg PO DAILY 03/10/19 08/11/20 Travoprost [Travatan Z 0.004%] 1 drop BOTH EYES HS 03/10/19 08/11/20 Dapagliflozin Propanediol [Farxiga] 10 mg PO DAILY 08/11/20 08/11/20 Magnesium Oxide 400 mg PO BID 08/11/20 08/11/20 Repaglinide [Prandin] 2 mg PO TID 08/11/20 08/11/20 lisinopriL [Zestril] 20 mg PO DAILY 08/11/20 08/11/20 Previous Rx's Medication Instructions Recorded Ampicillin-Sulbactam [Unasyn] 3 gm IVPB Q6HR #112 vial 08/16/20 Acetaminophen Tab [Tylenol] 650 mg PO Q6HR PRN tab 08/17/20 Collagenase [Santyl Ointment] 1 applic TOPICAL DAILY #30 applic 08/17/20 HYDROcodone/APAP 5-325MG [[place] 1 each PO Q4HR PRN #18 tab 08/17/20 5-325] Psyllium Husk 100% [Metamucil 6 gm PO DAILY #30 packet 08/17/20 Packet] Allergies Allergy/AdvReac Type Severity Reaction Status Date / Time nickel Allergy Unknown Verified 01/10/24 13:36 Review of Systems ROS Statement: Those systems with pertinent positive or pertinent negative responses have been documented in the HPI. ROS Other: All systems not noted in ROS Statement are negative. Past Medical History Past Medical History: Heart Failure, Diabetes Mellitus, Hypertension Additional Past Medical History / Comment(s): glaucoma History of Any Multi-Drug Resistant Organisms: None Reported Past Surgical History: No Surgical Hx Reported Additional Past Surgical History / Comment(s): testicle surgery, thumb surgery, ankle surgery Past Anesthesia/Blood Transfusion Reactions: No Reported Reaction Past Psychological History: No Psychological Hx Reported Smoking Status: Current every day smoker Past Alcohol Use History: None Reported Past Drug Use History: Marijuana - Past Family History Father Family Medical History: CVA/TIA Additional Family Medical History / Comment(s): CABG x2 General Exam Limitations: no limitations General appearance: alert, in no apparent distress ENT exam: Present: normal exam, mucous membranes moist Neck exam: Present: normal inspection. Absent: tenderness, meningismus, lymphadenopathy Respiratory exam: Present: normal lung sounds bilaterally. Absent: respiratory distress, wheezes, rales, rhonchi, stridor Cardiovascular Exam: Present: regular rate, normal rhythm, normal heart sounds. Absent: systolic murmur, diastolic murmur, rubs, gallop, clicks GI/Abdominal exam: Present: soft, normal bowel sounds. Absent: distended, tenderness, guarding, rebound, rigid Extremities exam: Present: normal inspection, full ROM, normal capillary refill. Absent: tenderness, pedal edema, joint swelling, calf tenderness Back exam: Present: normal inspection Skin exam: Present: warm, dry, intact, normal color. Absent: rash Course Vital Signs 01/10/24 01/10/24 13:34 16:57 Temperature 98.2 F 97.9 F Pulse Rate 88 80 Respiratory 18 18 Rate Blood Pressure 144/82 129/57 O2 Sat by Pulse 97 99 Oximetry Medical Decision Making - Medical Decision Making Was pt. sent in by a medical professional or institution (CHRIS Epstein, JOB SERVICE CONSULTANT, urgent care, hospital, or prison...) When possible be specific @ -No Did you speak to anyone other than the patient for history (EMS, parent, family, police, friend...)? What history was obtained from this source @ -No Did you review nursing and triage notes (agree or disagree)? Why? @ -I reviewed and agree with nursing and triage notes Were old charts reviewed (outside hosp., previous admission, EMS record, old EKG, old radiological studies, urgent care reports/EKG's, prison records)? Report findings @ -No old charts were reviewed Differential Diagnosis (chest pain, altered mental status, abdominal pain women, abdominal pain men, vaginal bleeding, weakness, fever, dyspnea, syncope, headache, dizziness, GI bleed, back pain, seizure, CVA, palpatations, mental health, musculoskeletal)? @ -Differential Abdominal Pain Men: Appendicitis, cholecystitis, diverticulosis, ischemic bowel, pancreatitis, hepatitis, UTI, gastroenteritis, AAA, incarcerated hernia, bowel obstruction, constipation, inflammatory bowel, hepatitis, peptic ulcer disease, splenic infarction, perforated viscus, testicular torsion, this is not meant to be an all-inclusive list EKG interpreted by me (3pts min.). @ -None X-rays interpreted by me (1pt min.). @ -None done CT interpreted by me (1pt min.). @ -None done U/S interpreted by me (1pt. min.). @ - US of the kidneys ureters and bladder reveals a exophytic mass projecting into the lumen of the bladder measuring 5.1 cm referral for possible bladder cancer no hydronephrosis with a 1.9 cm lower pole left renal cyst What testing was considered but not performed or refused? (CT, X-rays, U/S, labs)? Why? @ -None What meds were considered but not given or refused? Why? @ -None Did you discuss the management of the patient with other professionals (professionals i.e. Dr., PA, JOB SERVICE CONSULTANT, lab, RT, psych nurse, forensic social worker, carpet inspector, teacher, toxics program officer, case management associate)? Give summary @ -No Was smoking cessation discussed for >3mins.? @ -No Was critical care preformed (if so, how long)? @ -No Were there social determinants of health that impacted care today? How? (Ho melessness, low income, unemployed, alcoholism, drug addiction, transportation, low edu. Level, literacy, decrease access to med. care, long term, rehab)? @ -No Was there de-escalation of care discussed even if they declined (Discuss DNR or withdrawal of care, Hospice)? DNR status @ -No What co-morbidities impacted this encounter? (DM, HTN, Smoking, COPD, CAD, Cancer, CVA, ARF, Chemo, Hep., AIDS, mental health diagnosis, sleep apnea, morbid obesity)? @ -None Was patient admitted / discharged? Hospital course, mention meds given and route, prescriptions, significant lab abnormalities, going to OR and other pertinent info. @ -Discharged. 68-year-old male with hematuria. Patient's vitals are stable and there are no signs abdominal tenderness or flank pain on palpation. CBC unremarkable, CMP reveals mildly elevated BUN at 28, elevated lactic acid at 2.3, urinalysis remarkable for red blood cells and white blood cells. Ultrasound remarkable for a mass in the lumen of the bladder measuring 5.1 cm. Results discussed with patient at bedside and he is provided with a urologist referral for further evaluation. Recommend that he continue full course of Bactrim as prescribed. All questions answered at bedside and strict return parameters noemí with the patient he is verbalized understanding. Discussed with Dr. khan Undiagnosed new problem with uncertain prognosis? @ -No Drug Therapy requiring intensive monitoring for toxicity (Heparin, Nitro, Insulin, Cardizem)? @ -No Were any procedures done? @ -No Diagnosis/symptom? @ -hematuria, urinary tract infection Acute, or Chronic, or Acute on Chronic? @ -acute Uncomplicated (without systemic symptoms) or Complicated (systemic symptoms)? @ -Uncomplicated Side effects of treatment? @ -No Exacerbation, Progression, or Severe Exacerbation? @ -No Poses a threat to life or bodily function? How? (Chest pain, [place], [place], pneumonia, PE, COPD, DKA, ARF, appy, cholecystitis, CVA, Diverticulitis, Homicidal, Suicidal, threat to staff... and all critical care pts) @ -No - Lab Data Result diagrams: 01/10/24 14:22 01/10/24 14:22 Lab Results 01/10/24 01/10/24 01/10/24 Range/Units 14:22 14:22 14:22 WBC 8.8 (3.8-10.6) k/uL RBC 4.74 (4.30-5.90) m/uL Hgb 15.0 (13.0-17.5) gm/dL Hct 45.6 (39.0-53.0) % MCV 96.3 (80.0-100.0) fL MCH 31.7 (25.0-35.0) pg MCHC 32.9 (31.0-37.0) g/dL RDW 13.6 (11.5-15.5) % Plt Count 259 (150-450) k/uL MPV 7.3 Neutrophils % 72 % Lymphocytes % 17 % Monocytes % 5 % Eosinophils % 2 % Basophils % 1 % Neutrophils # 6.4 (1.3-7.7) k/uL Lymphocytes # 1.5 (1.0-4.8) k/uL Monocytes # 0.4 (0-1.0) k/uL Eosinophils # 0.2 (0-0.7) k/uL Basophils # 0.1 (0-0.2) k/uL Sodium 138 (137-145) mmol/L Potassium 4.5 (3.5-5.1) mmol/L Chloride 100 (98-107) mmol/L Carbon Dioxide 29 (22-30) mmol/L Anion Gap 9 mmol/L BUN 28 H (9-20) mg/dL Creatinine 1.16 (0.66-1.25) mg/dL Est GFR (CKD-EPI)AfAm 74 (>60 ml/min/1.73 sqM) Est GFR (CKD-EPI)NonAf 64 (>60 ml/min/1.73 sqM) Glucose 148 H (74-99) mg/dL Plasma Lactic Acid [place] (0.7-2.0) mmol/L Calcium 9.8 (8.4-10.2) mg/dL Total Bilirubin 0.8 (0.2-1.3) mg/dL AST 20 (17-59) U/L ALT 15 (4-49) U/L Alkaline Phosphatase 65 (38-126) U/L Total Protein 7.2 (6.3-8.2) g/dL Albumin 4.6 (3.5-5.0) g/dL Urine Color Dark Red Urine Appearance Bloody (Clear) Urine RBC >182 H (0-5) /hpf Urine WBC >182 H (0-5) /hpf Urine Mucus Few H (None) /hpf 01/10/24 Range/Units 14:22 WBC (3.8-10.6) k/uL RBC (4.30-5.90) m/uL Hgb (13.0-17.5) gm/dL Hct (39.0-53.0) % MCV (80.0-100.0) fL MCH (25.0-35.0) pg MCHC (31.0-37.0) g/dL RDW (11.5-15.5) % Plt Count (150-450) k/uL MPV Neutrophils % % Lymphocytes % % Monocytes % % Eosinophils % % Basophils % % Neutrophils # (1.3-7.7) k/uL Lymphocytes # (1.0-4.8) k/uL Monocytes # (0-1.0) k/uL Eosinophils # (0-0.7) k/uL Basophils # (0-0.2) k/uL Sodium (137-145) mmol/L Potassium (3.5-5.1) mmol/L Chloride (98-107) mmol/L Carbon Dioxide (22-30) mmol/L Anion Gap mmol/L BUN (9-20) mg/dL Creatinine (0.66-1.25) mg/dL Est GFR (CKD-EPI)AfAm (>60 ml/min/1.73 sqM) Est GFR (CKD-EPI)NonAf (>60 ml/min/1.73 sqM) Glucose (74-99) mg/dL Plasma Lactic Acid [place] 2.3 H* (0.7-2.0) mmol/L Calcium (8.4-10.2) mg/dL Total Bilirubin (0.2-1.3) mg/dL AST (17-59) U/L ALT (4-49) U/L Alkaline Phosphatase (38-126) U/L Total Protein (6.3-8.2) g/dL Albumin (3.5-5.0) g/dL Urine Color Urine Appearance (Clear) Urine RBC (0-5) /hpf Urine WBC (0-5) /hpf Urine Mucus (None) /hpf Disposition Clinical Impression: Hematuria, Urinary tract infection Disposition: HOME SELF-CARE Condition: Good Instructions (If sedation given, give patient instructions): Urinary Tract Infection in Men (ED), Hematuria (ED) Additional Instructions: Return to the emergency department for any new or worsening symptoms. Recommend that you continue full course of Bactrim as prescribed. Follow-up outpatient with urology for further evaluation. Is patient prescribed a controlled substance at d/c from ED?: No Referrals: Sarkis Egan MD [Primary Care Provider] - 1-2 days Jack Ashford MD [STAFF PHYSICIAN] - 1-2 days Time of Disposition: 15:53
[2024-01-10 14:56] LABS: Basophils # (A) 0.1 k/uL (0-0.2); Basophils % (A) 1 %; Eosinophils # (A) 0.2 k/uL (0-0.7); Eosinophils % (A) 2 %; HCT 45.6 % (39.0-53.0); Lymphocytes # (A) 1.5 k/uL (1.0-4.8); Lymphocytes % (A) 17 %; MCH 31.7 pg (25.0-35.0); MCHC 32.9 g/dL (31.0-37.0); MCV 96.3 fL (80.0-100.0); Mean Platelet Volume 7.3; Monocytes # (A) 0.4 k/uL (0-1.0); Monocytes % (A) 5 %; Neutrophils # (A) 6.4 k/uL (1.3-7.7); Neutrophils % (A) 72 %; Platelet Count 259 k/uL (150-450); RBC 4.74 m/uL (4.30-5.90); RDW 13.6 % (11.5-15.5); WBC 8.8 k/uL (3.8-10.6)
[2024-01-10 15:17] LABS: ALT 15 U/L (4-49); AST 20 U/L (17-59); African American GFR (CKD) 74 (>60 ml/min/1.73 sqM); Albumin 4.6 g/dL (3.5-5.0); Alkaline Phosphatase 65 U/L (38-126); Anion Gap 9 mmol/L; Blood Urea Nitrogen 28 mg/dL (9-20); Calcium 9.8 mg/dL (8.4-10.2); Carbon Dioxide 29 mmol/L (22-30); Chloride 100 mmol/L (98-107); Glucose 148 mg/dL (74-99); Non-African American GFR(CKD) 64 (>60 ml/min/1.73 sqM); Potassium 4.5 mmol/L (3.5-5.1); Sodium 138 mmol/L (137-145); Total Bilirubin 0.8 mg/dL (0.2-1.3); Total Protein 7.2 g/dL (6.3-8.2)
[2024-01-10 15:23] LABS: Mucus,Urine Few /hpf; RBC,Urine >182 /hpf (0-5); WBC,Urine >182 /hpf (0-5)
[2024-01-10 15:30] LABS: Appearance,Urine Bloody (Clear); Color,Urine Dark Red
--- NOTE | 2024-01-10 15:41 | US ---
EXAMINATION TYPE: US kidneys/renal and bladder DATE OF EXAM: 01/10/2024 COMPARISON: NONE CLINICAL INDICATION: Male, 68 years old with history of recurrent hematuria; Pt states hematuria EXAM MEASUREMENTS: Right Kidney: 13.6 x 4.9 x 5.5 cm Left Kidney: 13.8 x 5.6 x 5.6 cm Right Kidney: Some minimal perinephric edema, no evidence of hydro, lower pole gassed out Left Kidney: Some minimal perinephric edema, no evidence of hydro, cyst near lower pole= 1.9 x 1.4 x 1.4 cm Bladder: Solid, vascular mass exophytic from the posterior bladder wall measuring 5.1 x 3.8 x 4.4 cm Bilateral Jets seen: No IMPRESSION: 1. There appears to be an exophytic mass projecting into the lumen of the bladder measuring up to 5.1 cm. Correlate with urine cytology and urology referral for bladder carcinoma. 2. No hydronephrosis. A benign 1.9 cm lower pole left renal cyst. [facility], Workstation: [email or web address], 01/10/2024 3:39 PM
[2024-01-10] MEDS: SODIUM CHLORIDE 0.9% 500 ML 500 ML IV STA (16:00)
[2024-01-10 16:59] VITALS: BP 129/57; PULSE 80; TEMP 97.9
== END 2024-01-10 16:59 | disposition home or self-care (01) ==
LOC: EC 13:31
CPT/HCPCS: 36415; 76770; 80053; 81001; 83605; 85025; 99284

== ENCOUNTER 2024-02-22 16:28 | Observation (INO) | payer OTHER, MEDICARE ==
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
[2024-02-22 18:27] LABS: Appearance,Urine Cloudy (Clear); Bilirubin,Urine Negative (Negative); Blood,Urine Large (Negative); Color,Urine Light Red; Glucose,Urine (UA) 4+ (Negative); Ketones,Urine Negative (Negative); Leukocyte Esterase,Urine Small (Negative); Nitrite,Urine Negative (Negative); PH, Urine 5.5 (5.0-8.0); Protein,Urine 1+ (Negative); RBC,Urine >182 /hpf (0-5); Specific Gravity,Urine 1.019 (1.001-1.035); Squamous Epithelial Cell,Urine 1 /hpf (0-4); Urobilinogen,Urine <2.0 mg/dL (<2.0); WBC,Urine 16 /hpf (0-5)
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
[2024-02-22] MEDS ORDERED: NALOXONE 0.4 MG/ML 1 ML VIAL IV PRN (20:24)
[2024-02-22] MEDS ORDERED: MORPHINE SULFATE 4 MG/ML SYRINGE IV PRN (20:24)
[2024-02-22 20:34] LABS: Basophils % (A) 0 %; Eosinophils # (A) 0.1 k/uL (0-0.7); Eosinophils % (A) 1 %; HCT 42.7 % (39.0-53.0); Lymphocytes % (A) 9 %; MCH 30.8 pg (25.0-35.0); MCHC 32.8 g/dL (31.0-37.0); Mean Platelet Volume 7.3; Monocytes # (A) 0.4 k/uL (0-1.0); Monocytes % (A) 4 %; Neutrophils # (A) 9.8 k/uL (1.3-7.7); Neutrophils % (A) 86 %; Platelet Count 225 k/uL (150-450); RBC 4.55 m/uL (4.30-5.90); RDW 13.8 % (11.5-15.5); WBC 11.4 k/uL (3.8-10.6)
[2024-02-22] MEDS: SODIUM CHLORIDE 0.9% 1,000 ML IV STA ×2 (20:42→20:46)
[2024-02-22] MEDS: SODIUM CHLORIDE 0.9% 1,000 ML IV SCH (20:45)
[2024-02-22 20:46] LABS: INR 0.9 (<1.2); Partial Thromboplastin Time 23.8 sec (22.0-30.0); Prothrombin Time 10.2 sec (10.0-12.5)
[2024-02-22] MEDS: HYDROmorphone 1 MG/ML 1 ML SYRINGE IVP STA (20:49)
[2024-02-22 20:52] LABS: ALT 16 U/L (4-49); AST 23 U/L (17-59); African American GFR (CKD) >90 (>60 ml/min/1.73 sqM); Albumin 4.4 g/dL (3.5-5.0); Alkaline Phosphatase 99 U/L (38-126); Anion Gap 10 mmol/L; Blood Urea Nitrogen 29 mg/dL (9-20); Carbon Dioxide 24 mmol/L (22-30); Chloride 106 mmol/L (98-107); Glucose 180 mg/dL (74-99); Magnesium 1.9 mg/dL (1.6-2.3); Non-African American GFR(CKD) >90 (>60 ml/min/1.73 sqM); Potassium 4.3 mmol/L (3.5-5.1); Sodium 140 mmol/L (137-145); Total Bilirubin 0.6 mg/dL (0.2-1.3)
[2024-02-22] MEDS: ONDANSETRON 4 MG/2 ML VIAL IVP PRN (20:54)
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
[2024-02-23] MEDS: HYDROmorphone 2 MG/ML 1 ML SYRINGE IVP PRN (00:03)
[2024-02-23 01:01] VITALS: TEMP 97.8
--- NOTE | 2024-02-23 06:19 | CT ---
EXAMINATION TYPE: CT brain wo con DATE OF EXAM: 02/23/2024 HISTORY: Weakness CT DLP: 1168.4 mGycm. Automated Exposure Control for Dose Reduction was Utilized. TECHNIQUE: CT scan of the head is performed without contrast. COMPARISON: Prior CT one day earlier. FINDINGS: There is no acute intracranial hemorrhage or midline shift identified. There is mild diff use ventricular and sulcal prominence redemonstrated. There is mild low-attenuation in the periventr icular white matter redemonstrated. The globes are intact and the visualized sinuses are clear. IMPRESSION: No new acute intracranial hemorrhage or midline shift. [facility], , 02/23/2024 6:16 AM
[2024-02-23 07:11] LABS: Basophils # (A) 0.1 k/uL (0-0.2); Basophils % (A) 1 %; Eosinophils # (A) 0.1 k/uL (0-0.7); Eosinophils % (A) 2 %; HGB 13.2 gm/dL (13.0-17.5); Hypochromasia Slight; Lymphocytes # (A) 1.1 k/uL (1.0-4.8); Lymphocytes % (A) 13 %; MCH 30.6 pg (25.0-35.0); MCHC 31.5 g/dL (31.0-37.0); MCV 97.2 fL (80.0-100.0); Mean Platelet Volume 7.4; Monocytes # (A) 0.5 k/uL (0-1.0); Monocytes % (A) 6 %; Neutrophils # (A) 6.2 k/uL (1.3-7.7); Neutrophils % (A) 77 %; Platelet Count 194 k/uL (150-450); RBC 4.32 m/uL (4.30-5.90); RDW 13.9 % (11.5-15.5); WBC 8.1 k/uL (3.8-10.6)
[2024-02-23 07:44] LABS: ALT 13 U/L (4-49); AST 19 U/L (17-59); African American GFR (CKD) >90 (>60 ml/min/1.73 sqM); Alkaline Phosphatase 85 U/L (38-126); Anion Gap 5 mmol/L; Blood Urea Nitrogen 21 mg/dL (9-20); Calcium 8.7 mg/dL (8.4-10.2); Carbon Dioxide 31 mmol/L (22-30); Chloride 105 mmol/L (98-107); Glucose 168 mg/dL (74-99); Non-African American GFR(CKD) >90 (>60 ml/min/1.73 sqM); Potassium 4.9 mmol/L (3.5-5.1); Sodium 141 mmol/L (137-145); Total Bilirubin 0.6 mg/dL (0.2-1.3); Total Protein 6.4 g/dL (6.3-8.2)
[2024-02-23] MEDS: PANTOPRAZOLE 40 MG/10 ML VIAL IV SCH (09:20)
[2024-02-23 09:22] VITALS: RESP 18
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
[2024-02-23 14:56] VITALS: BP 146/79; PULSE 90
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
[2024-02-25 11:45] LABS: Phosphorus 2.6 (2.4-5.1)
== END 2024-02-23 16:15 | disposition home or self-care (01) ==
LOC: EC 16:28 → 3SCARD 20:25
PROVIDERS: ADMIT Surgery Plastic and Reconstructive Surgery; ATTEND Surgery Plastic and Reconstructive Surgery
DX: S06.9X1A Unspecified intracranial injury with loss of consciousness of 30 minutes or less, initial encounter (principal); S20.219A Contusion of unspecified front wall of thorax, initial encounter; S43.402A Unspecified sprain of left shoulder joint, initial encounter; S13.4XXA Sprain of ligaments of cervical spine, initial encounter; V29.99XA Rider (driver) (passenger) of other motorcycle injured in unspecified traffic accident, initial encounter; Y92.410 Unspecified street and highway as the place of occurrence of the external cause; E11.42 Type 2 diabetes mellitus with diabetic polyneuropathy; F17.200 Nicotine dependence, unspecified, uncomplicated; I11.0 Hypertensive heart disease with heart failure; I50.9 Heart failure, unspecified; H40.9 Unspecified glaucoma; Z79.899 Other long term (current) drug therapy; Z79.84 Long term (current) use of oral hypoglycemic drugs; Z79.4 Long term (current) use of insulin; Z89.421 Acquired absence of other right toe(s)
CPT/HCPCS: 96376; 96374; 96375; 99285; 36415; 94760; 93005; 80053 ×2; 83735; 84100; 84484; 85025 ×2; 85610; 85730; 81001; 72170; 71045; 72125; 70450 ×2; 71260; 74177; G0378 ×2; G0390; J1171 ×2; J2405 ×2; Q9967